=== PATIENT | female | born 1960 | race Caucasian/White ===

== ENCOUNTER 2017-03-31 20:11 | Inpatient (IN) | payer OTHER ==
[~2017-03-31] VITALS: Ht 165.1 cm; Wt 110.2 kg
[2017-03-31] MEDS: LEVOTHYROXINE 200 MCG TAB PO SCH (06:30)
[~2017-03-31 20:11] MED LIST: ALBU1AER9 INH; ASPI-390 PO; CITA40TA4 PO; CYAN100020 PO; DVN/160 PO; GLC/500 PO; HYDR-3983 PO; LEVO175T3 PO; LEVO200T6 PO; LORA-741 PO; MOME200A INH; MTR400 PO; OMEG10007 PO; TIOTCAP INH; VANCOMYCIN INJ 1,000 MG in SODIUM CHLORIDE 0.9% 250ML 250 ML IV STA; VARE1PAK15 PO
[2017-03-31 22:21] VITALS: BP 150/85; PULSE 89; TEMP 37; O2SAT 88; Ht 165.1 cm; Wt 110.2 kg
[2017-03-31] MEDS ORDERED: MoRPHine SULFATE 2 MG/ML CARP IV PRN (22:30)
[2017-03-31] MEDS ORDERED: CYCLOBENZAPRINE HCL 10 MG TAB PO PRN (22:30)
[2017-03-31] MEDS ORDERED: ONDANSETRON INJ 2 MG/ML 2 ML VIAL IV PRN (22:30)
[2017-03-31] MEDS ORDERED: LORAZEPAM 0.5 MG TAB PO PRN (22:30)
[2017-03-31] MEDS ORDERED: FUROSEMIDE 20 MG TAB PO PRN (22:30)
[2017-03-31] MEDS ORDERED: CARV3.122 PO (22:40)
[2017-03-31] MEDS ORDERED: MONT1TAB3 PO (22:40)
[2017-03-31] MEDS ORDERED: CYCL10TA6 PO (22:40)
[2017-03-31] MEDS ORDERED: FURO-85 PO (22:40)
[2017-03-31] MEDS ORDERED: LOSA1TAB38 PO (22:40)
[2017-03-31] MEDS ORDERED: MELO15TA4 PO (22:40)
[2017-03-31] MEDS ORDERED: CEFTRIAXONE SOD IV SCH (23:00)
[2017-03-31] MEDS ORDERED: SODIUM CHLORIDE 0.9% IV SCH (23:00)
[2017-03-31 23:38] VITALS: BP 137/78; PULSE 87; TEMP 37.4; O2SAT 99
[2017-03-31 23:38] LABS: BASO % 0.4 %; BASO ABS # 0.05 K/uL (0-0.2); COMPLETE YES; EOS % 0.2 %; HEMATOCRIT 35.1 % (37-47); IG% 0.2 %; LYMPH % 14.1 %; LYMPH ABS # 1.73 K/uL (1.2-3.4); MEAN CELL VOLUME 95.6 fL (80-100); MEAN CORPUSCULAR HEMOGLOBIN 30.2 pg (25-34); MEAN CORPUSCULAR HGB CONC 31.6 g/dl (32-36); MEAN PLATELET VOLUME 8.9 fL (7.4-10.4); MONO % 9.8 %; NEUT % 75.3 %; PLATELET COUNT 269 K/uL (130-400); RED BLOOD COUNT 3.67 M/uL (4.2-5.4); WHITE BLOOD COUNT 12.28 K/uL (4.8-10.8)
[2017-03-31 23:52] LABS: INR 1.1 (0.9-1.1); PROTHROMBIN TIME (PATIENT) 11.4 SECONDS (9.0-12.0)
[2017-03-31] MEDS: OXYCODONE/ACETAMINOPHEN 5-325 TAB PO PRN (23:55)
[2017-03-31 23:59] LABS: BUN/CREATININE RATIO 13.8 (10-20); CALCIUM 8.4 mg/dl (8.5-10.1); CREATININE 0.65 mg/dl (0.60-1.20); POTASSIUM 4.2 mmol/L (3.5-5.1)
[2017-03-31] MEDS: SODIUM CHLORIDE 0.9% 1000ML 1,000 ML IV SCH (23:59)
[2017-04-01] VITALS (10 sets, daily range): BP systolic 115–161; BP diastolic 74–102; PULSE 77–95; TEMP 36.6–37; O2SAT 83–95
[2017-04-01 00:07] LABS: C-REACTIVE PROTEIN 22.3 mg/dl (0-0.29)
[2017-04-01] MEDS ORDERED: VANCOMYCIN CONSULT ACTIVE PRN (00:15)
[2017-04-01 00:46] LABS: URINE APPEARANCE CLEAR (CLEAR); URINE BILIRUBIN NEG (NEG); URINE COLOR YELLOW; URINE NITRITE NEG (NEG); URINE PH 5.5 (4.5-7.5); URINE SPECIFIC GRAVITY 1.014 (1.000-1.030); UROBILINOGEN NEG (NEG)
[2017-04-01 00:49] LABS: MANUAL MICROSCOPIC REQUIRED? NO; REVIEW REQ? NO
[2017-04-01] MEDS ORDERED: DEXTROSE 50% 50 ML SYR IV PRN (01:30)
[2017-04-01] MEDS ORDERED: NURSING VERBAL MED ORDER ONE ×2 (01:30→19:15)
[2017-04-01] MEDS ORDERED: GLUCAGON FOR INJ 1 MG VIAL SQ PRN (01:30)
[2017-04-01] MEDS ORDERED: GLUCOSE 10 TABS/TUBE PO PRN (01:30)
[2017-04-01] MEDS ORDERED: GLUCOSE 40% GEL 15 GM TUBE PO PRN (01:30)
--- NOTE | 2017-04-01 01:36 | Medical Consult ---
Consultation Date of Consultation: April 01, 2017. Attending Physician: Jeevan Contreras D.O. History of Present Illness This is a 56 yo f that is s/p left TKA on March ( approx a week and a half ago) that was a direct admission from [facility] for an infection of the left knee. She states that she was doing very well post operative and was having minimal pain in the left knee. It is a 10/10 pain and is sharp/ aching in nature and does not radiate. Worsens with any movement. On thursday ( approx 3 days prior) she had increasing swelling and pain of the left knee where she had a difficullt time with ambulating. Today, she was putting her shoe on when her daughter twisted her foot and a serosanguinous drainage started to come out of the left knee. She went to [facility] for evaluation and it was decided she would be transferred to [place] for I&D of the knee. She has a history of diabetes controlled with metformin and a history of hypertension. She smokes approx 1PPD and does not drink alcohol or illicit drugs. She has a family history of stroke in the family. She has no history of PR, CHF or TIA. She is able to walk up a flight of stairs without SOB. Past Medical/Surgical History Hypothyroidism left TKA DMII HTN Family History Stroke Social History Smoking Status: Current Every Day Smoker Smokeless Tobacco Use: No Alcohol Use: none Drug Use: none Marital Status: Housing Status: lives alone Occupation Status: disabled Allergies Coded Allergies: No Known Allergies (Unverified , 04/11/16) Current Inpatient Medications Current Inpatient Medications Medications (Trade) Dose Ordered Sig/Shikha Route Start Time Stop Time Status Last Admin Dose Admin Oxycodone/ Acetaminophen (Percocet 5-325mg Tab) `1-2 TABS FOR PAIN `1 TAB... Q4H PRN PO 03/31/17 22:30 04/14/17 22:29 03/31/17 23:55 2 TAB Ondansetron HCl 4 mg 4 mg Q6H PRN IV 03/31/17 22:30 04/30/17 22:29 Sodium Chloride (Nss 1000ml) 1,000 ml @ 80 mls/hr [id number] IV 03/31/17 22:22 04/30/17 22:21 03/31/17 23:59 80 MLS/HR Carvedilol (Coreg Tab) 3.125 mg BID PO 04/01/17 09:00 05/01/17 08:59 Citalopram Hydrobromide (celeXA TAB) 40 mg QAM PO 04/01/17 09:00 05/01/17 08:59 Cyclobenzaprine HCl (Flexeril Tab) 10 mg TID PRN PO 03/31/17 22:30 04/30/17 22:29 Furosemide (Lasix Tab) 20 mg DAILY PRN PO 03/31/17 22:30 04/30/17 22:29 Levothyroxine Sodium (Synthroid Tab) 175 mcg Q2D@0630 PO 04/02/17 06:30 05/02/17 06:29 Levothyroxine Sodium (Synthroid Tab) 200 mcg Q2D@0630 PO 03/31/17 06:30 04/30/17 06:29 Lorazepam (Ativan Tab) 0.5 mg Q6H PRN PO 03/31/17 22:30 04/30/17 22:29 Losartan Potassium (coZAAR TAB) 100 mg DAILY PO 04/01/17 09:00 05/01/17 08:59 Metformin HCl (Glucophage Tab) 500 mg QDB PO 04/01/17 08:30 05/01/17 08:29 Montelukast Sodium 10 mg 10 mg HS PO 04/01/17 21:00 05/01/17 20:59 Ceftriaxone Sodium/Sodium Chloride (Rocephin Inj/ Nss 50ml) 60 ml @ 100 mls/hr DAILY@2300 IV 03/31/17 23:00 05/12/17 22:59 03/31/17 23:59 100 MLS/HR Morphine Sulfate (MoRPHine SULFATE INJ) 2 mg 4XDQ3H PRN IV 03/31/17 22:30 04/14/17 22:29 Vancomycin HCl (Consult) 1 ea UD PRN N/A 04/01/17 00:15 05/01/17 00:14 Review of Systems Constitutional: + fever (at [facility]) Eyes: No worsening of vision ENT: No hearing loss Respiratory: No cough, No dyspnea at rest, No dyspnea on exertion, No shortness of breath, No sputum, No wheezing Cardiovascular: No chest pain Abdomen: No constipation, No diarrhea, No nausea, No pain, No vomiting Musculoskeletal: + joint pain (As above), No muscle pain Genitourinary - Female: No dysuria, No hematuria Neurologic: No balance problems, No numbness/tingling, No weakness Psychiatric: + anxiety, No depression symptoms Endocrine: No fatigue Integumentary: No rash Physical Exam Date Time Temp Pulse Resp B/P Pulse Ox O2 Delivery O2 Flow Rate FiO2 03/31/17 23:38 37.4 87 16 137/78 99 Nasal Cannula 2.0 03/31/17 22:21 37.0 89 16 150/85 88 Room Air General Appearance: no apparent distress Head: normocephalic, atraumatic Eyes: normal inspection ENT: normal ENT inspection Neck: supple Respiratory/Chest: normal breath sounds, no respiratory distress, no accessory muscle use Cardiovascular: regular rate, rhythm, no murmur Abdomen/GI: normal bowel sounds, non tender, soft Back: normal inspection Extremities/Musculoskelatal: no calf tenderness, no pedal edema, + pertinent finding (pressure dressing on left knee noted, neurovascularly intact bilat LE) Neurologic/Psych: alert, normal mood/affect, oriented x 3 Skin: normal color, warm/dry, no rash Lymphatic: no adenopathy Laboratory Results Last 24 Hours Test 03/31/17 23:30 04/01/17 00:00 White Blood Count 12.28 K/uL Red Blood Count 3.67 M/uL Hemoglobin 11.1 g/dL Hematocrit 35.1 % Mean Corpuscular Volume 95.6 fL Mean Corpuscular Hemoglobin 30.2 pg Mean Corpuscular Hemoglobin Concent 31.6 g/dl Platelet Count 269 K/uL Mean Platelet Volume 8.9 fL Neutrophils (%) (Auto) 75.3 % Lymphocytes (%) (Auto) 14.1 % Monocytes (%) (Auto) 9.8 % Eosinophils (%) (Auto) 0.2 % Basophils (%) (Auto) 0.4 % Neutrophils # (Auto) 9.24 K/uL Lymphocytes # (Auto) 1.73 K/uL Monocytes # (Auto) 1.20 K/uL Eosinophils # (Auto) 0.03 K/uL Basophils # (Auto) 0.05 K/uL RDW Standard Deviation 51.8 fL RDW Coefficient of Variation 14.6 % Immature Granulocyte % (Auto) 0.2 % Immature Granulocyte # (Auto) 0.03 K/uL Erythrocyte Sedimentation Rate 43 mm/hr Prothrombin Time 11.4 SECONDS Prothromb Time International Ratio 1.1 Sodium Level 138 mmol/L Potassium Level 4.2 mmol/L Chloride Level 103 mmol/L Carbon Dioxide Level 30 mmol/L Anion Gap 5.0 mmol/L Blood Urea Nitrogen 9 mg/dl Creatinine 0.65 mg/dl Est Creatinine Clear Calc Drug Dose 119.4 ml/min Estimated GFR () 115.0 Estimated GFR (Non- 99.2 BUN/Creatinine Ratio 13.8 Random Glucose 115 mg/dl Calcium Level 8.4 mg/dl C-Reactive Protein 22.30 mg/dl Urine Color YELLOW Urine Appearance CLEAR Urine pH 5.5 Urine Specific [place] 1.014 Urine Protein TRACE Urine Glucose (UA) NEG Urine Ketones NEG Urine Occult Blood 2+ Urine Nitrite NEG Urine Bilirubin NEG Urine Urobilinogen NEG Urine Leukocyte Esterase NEG Urine WBC (Auto) 1-5 /hpf Urine RBC (Auto) 10-30 /hpf Urine Hyaline Casts (Auto) 1-5 /lpf Urine Epithelial Cells (Auto) 10-20 /lpf Urine Bacteria (Auto) NEG Assessment & Plan This is a 56 yo f with a h/o DMII, HTN and hypothyroidism that is a transfer from [place] for I&D of a recent left TKA Preop clearance - RCRI is 0.4% and is an acceptable risk for the proposed surgery Pending I&D of left knee s/p TKA - pain control per primary team - Rocephin and Vanco per primary team DMII - Metformin held - insulin ISS HTN - continue losartan and carvedilol hypothyroidism - continue 175mcg q 2 d and 200 q 2 d anxiety - continue celexa Additional Copies To Luis Jones PA-C Assessment and Plan Attending Addendum: I have physically seen and examined this patient, have directed their medical care, have supervised the medical residents activities, and agree with the H&P as noted above, with the following changes: NONE
[2017-04-01] MEDS: INSULIN ASPART 100 UNITS/ML 3 ML PEN SC SCH ×3 (06:00→20:42)
--- NOTE | 2017-04-01 06:00 | Pharmacy Progress Note ---
Pharmacy Antibiotic Consult Date of Service: April 01, 2017. Pharmacy Dosing Scope * Pharmacy is consulted to initiate Vancomycin IV dosing therapy, order appropriate labs and adjust drug dose/frequency. Subjective * The patient is a 56 year old female admitted on March 31, 2017 at 22:12. Objective Height (Feet): 5 Height (Inches): 5.00 Weight (Kilograms): 110.200 Lab Results (24hrs): Test 03/31/17 23:30 04/01/17 00:00 White Blood Count 12.28 K/uL (4.8-10.8) Red Blood Count 3.67 M/uL (4.2-5.4) Hemoglobin 11.1 g/dL (12.0-16.0) Hematocrit 35.1 % (37-47) Mean Corpuscular Volume 95.6 fL (80-100) Mean Corpuscular Hemoglobin 30.2 pg (25-34) Mean Corpuscular Hemoglobin Concent 31.6 g/dl (32-36) Platelet Count 269 K/uL (130-400) Mean Platelet Volume 8.9 fL (7.4-10.4) Neutrophils (%) (Auto) 75.3 % Lymphocytes (%) (Auto) 14.1 % Monocytes (%) (Auto) 9.8 % Eosinophils (%) (Auto) 0.2 % Basophils (%) (Auto) 0.4 % Neutrophils # (Auto) 9.24 K/uL (1.4-6.5) Lymphocytes # (Auto) 1.73 K/uL (1.2-3.4) Monocytes # (Auto) 1.20 K/uL (0.11-0.59) Eosinophils # (Auto) 0.03 K/uL (0-0.5) Basophils # (Auto) 0.05 K/uL (0-0.2) RDW Standard Deviation 51.8 fL (36.4-46.3) RDW Coefficient of Variation 14.6 % (11.5-14.5) Immature Granulocyte % (Auto) 0.2 % Immature Granulocyte # (Auto) 0.03 K/uL (0.00-0.02) Erythrocyte Sedimentation Rate 43 mm/hr (0-21) Prothrombin Time 11.4 SECONDS (9.0-12.0) Prothromb Time International Ratio 1.1 (0.9-1.1) Sodium Level 138 mmol/L (136-145) Potassium Level 4.2 mmol/L (3.5-5.1) Chloride Level 103 mmol/L (98-107) Carbon Dioxide Level 30 mmol/L (21-32) Anion Gap 5.0 mmol/L (3-11) Blood Urea Nitrogen 9 mg/dl (7-18) Creatinine 0.65 mg/dl (0.60-1.20) Est Creatinine Clear Calc Drug Dose 119.4 ml/min Estimated GFR () 115.0 Estimated GFR (Non- 99.2 BUN/Creatinine Ratio 13.8 (10-20) Random Glucose 115 mg/dl (70-99) Calcium Level 8.4 mg/dl (8.5-10.1) C-Reactive Protein 22.30 mg/dl (0-0.29) Urine Color YELLOW Urine Appearance CLEAR (CLEAR) Urine pH 5.5 (4.5-7.5) Urine Specific [place] 1.014 (1.000-1.030) Urine Protein TRACE (NEG) Urine Glucose (UA) NEG (NEG) Urine Ketones NEG (NEG) Urine Occult Blood 2+ (NEG) Urine Nitrite NEG (NEG) Urine Bilirubin NEG (NEG) Urine Urobilinogen NEG (NEG) Urine Leukocyte Esterase NEG (NEG) Urine WBC (Auto) 1-5 /hpf (0-5) Urine RBC (Auto) 10-30 /hpf (0-4) Urine Hyaline Casts (Auto) 1-5 /lpf (0-5) Urine Epithelial Cells (Auto) 10-20 /lpf (0-5) Urine Bacteria (Auto) NEG (NEG) Recent Pertinent Medications * Patient is also receiving Ceftriaxone 1gm IV every 24 hours Assessment & Plan * Patient was transferred from [place] ED for bone/joint infection. Per RN patient arrived to floor with a vancomycin bag labeled 1750mg that was started about 1999 on 03/31/17 in the [place] ED. The RN also noticed that bag was clamped and approx 100ml of vanco was left??? * A dose of 1750mg is ~15.8mg/kg. I ordered another 1gm IV dose given ~0118 for a total loading dose of ~25mg/kg. I have no idea where else to go from here so a random level was ordered for this am at 0800 just to verify the patient is clearing the drug. * Subsequent dosing to follow. Pharmacy will continue to follow and will adjust dose/frequency as necessary. Thank you
[2017-04-01] MEDS: OXYCODONE/ACETAMINOPHEN 5-325 TAB PO PRN ×2 (06:29→11:22)
[2017-04-01] MEDS ORDERED: INSULIN ASPART 100 UNITS/ML 3 ML PEN SC SCH (08:00)
[2017-04-01] MEDS ORDERED: METFORMIN HCL 500 MG TAB PO SCH (08:30)
[2017-04-01] MEDS ORDERED: VANCOMYCIN INJ 1,000 MG in SODIUM CHLORIDE 0.9% 250ML 250 ML IV SCH (09:00)
[2017-04-01] MEDS: LOSARTAN POTASSIUM 50 MG TAB PO SCH (09:01)
[2017-04-01] MEDS: CARVEDILOL 3.125 MG TAB PO SCH ×2 (09:02→20:39)
[2017-04-01] MEDS: CITALOPRAM 40 MG TAB PO SCH (09:03)
--- NOTE | 2017-04-01 09:47 | Pharmacy Progress Note ---
Pharmacy Abx Dose Progress Nt Date of Service April 01, 2017. Pharmacy Dosing Scope The patient is currently receiving the following antimicrobial agents per Pharmacy consult: Vancomycin IV Objective Height (Feet): 5 Height (Inches): 5.00 Weight (Kilograms): 110.200 Vital Signs (Past 12Hrs) Vital Signs Past 12 Hours Date Time Temp Pulse Resp B/P Pulse Ox O2 Delivery O2 Flow Rate FiO2 04/01/17 07:20 Nasal Cannula 2.0 04/01/17 07:12 36.7 86 18 115/74 95 Nasal Cannula 2.0 04/01/17 01:30 36.7 04/01/17 00:00 Nasal Cannula 2.0 03/31/17 23:38 37.4 87 16 137/78 99 Nasal Cannula 2.0 03/31/17 22:21 37.0 89 16 150/85 88 Room Air Lab Results (24Hrs) Test 03/31/17 23:30 04/01/17 00:00 04/01/17 07:50 White Blood Count 12.28 K/uL (4.8-10.8) Red Blood Count 3.67 M/uL (4.2-5.4) Hemoglobin 11.1 g/dL (12.0-16.0) Hematocrit 35.1 % (37-47) Mean Corpuscular Volume 95.6 fL (80-100) Mean Corpuscular Hemoglobin 30.2 pg (25-34) Mean Corpuscular Hemoglobin Concent 31.6 g/dl (32-36) Platelet Count 269 K/uL (130-400) Mean Platelet Volume 8.9 fL (7.4-10.4) Neutrophils (%) (Auto) 75.3 % Lymphocytes (%) (Auto) 14.1 % Monocytes (%) (Auto) 9.8 % Eosinophils (%) (Auto) 0.2 % Basophils (%) (Auto) 0.4 % Neutrophils # (Auto) 9.24 K/uL (1.4-6.5) Lymphocytes # (Auto) 1.73 K/uL (1.2-3.4) Monocytes # (Auto) 1.20 K/uL (0.11-0.59) Eosinophils # (Auto) 0.03 K/uL (0-0.5) Basophils # (Auto) 0.05 K/uL (0-0.2) RDW Standard Deviation 51.8 fL (36.4-46.3) RDW Coefficient of Variation 14.6 % (11.5-14.5) Immature Granulocyte % (Auto) 0.2 % Immature Granulocyte # (Auto) 0.03 K/uL (0.00-0.02) Erythrocyte Sedimentation Rate 43 mm/hr (0-21) Prothrombin Time 11.4 SECONDS (9.0-12.0) Prothromb Time International Ratio 1.1 (0.9-1.1) Sodium Level 138 mmol/L (136-145) Potassium Level 4.2 mmol/L (3.5-5.1) Chloride Level 103 mmol/L (98-107) Carbon Dioxide Level 30 mmol/L (21-32) Anion Gap 5.0 mmol/L (3-11) Blood Urea Nitrogen 9 mg/dl (7-18) Creatinine 0.65 mg/dl (0.60-1.20) Est Creatinine Clear Calc Drug Dose 119.4 ml/min Estimated GFR () 115.0 Estimated GFR (Non- 99.2 BUN/Creatinine Ratio 13.8 (10-20) Random Glucose 115 mg/dl (70-99) Calcium Level 8.4 mg/dl (8.5-10.1) C-Reactive Protein 22.30 mg/dl (0-0.29) Urine Color YELLOW Urine Appearance CLEAR (CLEAR) Urine pH 5.5 (4.5-7.5) Urine Specific [place] 1.014 (1.000-1.030) Urine Protein TRACE (NEG) Urine Glucose (UA) NEG (NEG) Urine Ketones NEG (NEG) Urine Occult Blood 2+ (NEG) Urine Nitrite NEG (NEG) Urine Bilirubin NEG (NEG) Urine Urobilinogen NEG (NEG) Urine Leukocyte Esterase NEG (NEG) Urine WBC (Auto) 1-5 /hpf (0-5) Urine RBC (Auto) 10-30 /hpf (0-4) Urine Hyaline Casts (Auto) 1-5 /lpf (0-5) Urine Epithelial Cells (Auto) 10-20 /lpf (0-5) Urine Bacteria (Auto) NEG (NEG) Random Vancomycin Level 11.8 mcg/ml Risk Factors for Resistance * Hospitalization for 48 hours or more within the past 90 days (knee surgery ) * Antimicrobial use within the last 90 days ? (likely preop/postop abx 03/16/17) Assessment & Plan Assessment * 56 year old female receiving Vancomycin for treatment of L knee infection s/p L TKA 1.5 weeks ago. * Patient was directly admitted last night from [facility]. * Vancomycin and Rocephin IV ordered on admission. Nurse noted when patient got to the floor that a "Vancomycin 1750 mg" IV was hanging ([facility] label) and ~ 100 cc's clamped and left in bag. * Nurse reported info to pharmacist and at that point it was decided to give 1000 mg IV X 1 (to complete a full loading dose) and check random with AM labs since it is unknown as to timing of ABX and how much drug was infused. * Day # 2 of antimicrobial therapy Plan Vancomycin IV * A random level of 11.8 mcg/mL is subtherapeutic. * I assume that the patient was not sufficiently loaded since Vancomycin was clamped from [place] and we only gave 1000 mg IV since we had no idea what to expect with random draw. * Initiate dose of 1500 mg IV every 10 hours with first dose being STAT * Goal trough level for bone/joint infection: 15 to 20 mcg/mL * Trough level ordered for: 04/02/17 @ 1530 prior to the 1600 dose. * Less than traditional dose and/or extended dosing interval selected due to likelihood of drug accumulation in obese patient/CKD. Rocephin 1 g IV every 24 hours * Given patients BMI >35, increase dose to 2 g IV every 24 hours Cultures * None pending at this time. Patient to go for I/D today. Pharmacy will continue to follow and will adjust dose/frequency as necessary. Thank you.
[2017-04-01] MEDS: VANCOMYCIN INJ 1,500 MG in SODIUM CHLORIDE 0.9% 500ML 500 ML IV SCH ×2 (10:01→20:36)
[2017-04-01] MEDS: SODIUM CHLORIDE 0.9% 1000ML 1,000 ML IV SCH ×2 (11:24→23:15)
--- NOTE | 2017-04-01 14:11 | HISTORY & PHYSICAL EXAMINATION ---
DATE OF ADMISSION: 03/31/2017 HISTORY OF PRESENT ILLNESS: The patient is a 56-year-old white female known to our practice who is status post left knee arthroscopy by Dr. Contreras approximately 9 days ago. She states that she was doing well the first week; however on Thursday she began having some pain in her knee and into Thursday and Thursday to the point where she could not bend the knee and could not walk on it. At one point when her daughter was helping her get out of bed the knee twisted a certain way and a lot of purulent material came squirting out the 1 portal. She was seen at [facility] and then at that point felt that her knee was infected and was brought over here to [facility] where she was admitted under Dr. Contreras's service for further care. The patient denies any overt chills or rigors. No nausea or vomiting. She states that she was having some increased heat intolerances and sweating a lot after receiving medication at [place] but no overt fevers or chills at home prior to this. PAST MEDICAL HISTORY: Hypertension, diabetes mellitus type 2, hypothyroidism, history of left knee arthroscopy x2 in the past, 1 just recently with above noted history and once in 2016. FAMILY HISTORY: CVA. SOCIAL HISTORY: The patient is a smoker who does not use alcohol and is . MEDICATIONS: Carvedilol 1 tab p.o. b.i.d. 3.125 mg tablet, citalopram 40 mg p.o. q.a.m., Flexeril 10 mg p.o. t.i.d. p.r.n., furosemide 20 mg p.o. daily p.r.n., [place] 7.5/325 two tabs p.o. q. 6 hours p.r.n. pain, levothyroxine 175 mcg every 2 days and 200 mcg alternating with the 175 mcg dose, lorazepam 0.5 mg p.o. q. 6 hours p.r.n., losartan potassium 100 mg p.o. daily, meloxicam 15 mg p.o. daily, metformin 500 mg p.o. q.a.m., Dulera 200/5 two puffs inhaled b.i.d., Singulair 1 tab p.o. at bedtime. ALLERGIES: NKDA. REVIEW OF SYSTEMS: Again, no recent overt fevers prior to this admission. No increased cough or sputum production. No flu or cold-like symptoms. No nausea or vomiting. No hemoptysis. No chest pain, chest pressure, irregular heartbeat. No abdominal pain. No unusual diarrhea. No hematemesis, melena, hematochezia. No hematuria, pyuria, dysuria. No vertigo, lightheadedness, dizzy sensations. PHYSICAL EXAMINATION: VITAL SIGNS: Recently this morning temperature 36.7, pulse 86, respirations 18, BP 115/74, pulse ox 95 on 2 liters per nasal cannula. GENERAL: The patient is an obese white female who is alert and oriented x3 and in no acute distress, pleasant and cooperative. SKIN: Warm and dry. Turgor is good. HEAD, EYES, EARS, NOSE, AND THROAT: Head is normocephalic, atraumatic. There is no scleral icterus or injection. Nasal airway is patent. Oral mucosa is pink and dry. NECK: Supple. HEART: Regular rate and rhythm. LUNGS: Clear to auscultation. ABDOMEN: Soft, obese and nontender. Bowel sounds are present and active x4. GENITALIA AND RECTAL: Not performed at this time. EXTREMITIES: On examination of the patient's left lower extremity it is wrapped in gauze and has noted drainage on it. The gauze and wrap are removed and it reveals 3 arthroscopy portals. The most superior portal is benign. No erythema and no drainage. The 2 portals on the medial and lateral aspects of the knee joint have some erythema near them and the lateral portal is draining some orangeish serous drainage on a regular basis. She is moderately tender on palpation of the knee at this time and any attempts to do gentle range of motion with the knee causes her exquisite pain in the knee itself. She has some mild erythema noted around the portals as noted. She is nontender in both calves and has good dorsiflexion, plantar flexion of both ankles with good strength equal bilaterally. Her right lower extremity is benign at this time as far as range of motion and is within normal limits. Upper extremities have good strength bilaterally and range of motion of the upper extremities is within normal limits without discomfort. Distal pulses are equal bilaterally of the upper and lower extremities. NEUROLOGICAL: There is no gross motor or sensory deficits seen at this time. The patient is oriented x3. ASSESSMENT: Left infected knee status post left knee arthroscopy approximately 9 days ago. PLAN: The patient has been started on IV vancomycin. Medical consultation has been obtained and plans will be for irrigation and debridement of the left knee today. Consult will be placed to infectious disease and to have them on board. LENNY
--- NOTE | 2017-04-01 14:16 | Progress Note ---
Progress Note Date of Service April 01, 2017. Progress Note ID Consult Dictated #[id number] A/P: 1. Infected L TKA -For OR today, please obtain cultures -Blood cultures x 2 -Continue emperic abx -Await OR findings, culture results -Will follow, thank you
--- NOTE | 2017-04-01 15:54 | DIAGNOSTIC IMAGING REPORT ---
CHEST ONE VIEW PORTABLE CLINICAL HISTORY: Preoperative evaluation. COMPARISON STUDY: No previous studies for comparison. FINDINGS: Lung volumes are normal. There is no consolidation to suggest pneumonia. Pulmonary vascularity is normal. Cardiac size is at the upper limits of normal. IMPRESSION: No acute cardiopulmonary findings. Electronically signed by: Ramsey Turcios M.D. 04/01/2017 3:52 PM Dictated Date/Time: 04/01/2017 3:51 PM
[2017-04-01] MEDS ORDERED: BACITRACIN 50000 UNIT VIAL ONE ×2 (15:55→16:03)
[2017-04-01] MEDS ORDERED: BUPIVACAINE/EPINEPHRINE 0.5% MPF 1:200,000 30 ML VIAL ONE (15:55)
[2017-04-01] MEDS ORDERED: FENTANYL CITRATE INJ 50 MCG/1 ML 2 ML VIAL ONE ×2 (16:03→16:50)
[2017-04-01] MEDS ORDERED: MIDAZOLAM HCL 1 MG/ML 2ML VIAL ONE (16:03)
--- NOTE | 2017-04-01 16:09 | History & Physical Bridge Note ---
H&P Re-Evaluation Bridge Note: I have examined the patient, reviewed the History & Physical and in the interval since the performance of the History & Physical I have noted the following changes of clinical significance: No changes noted
--- NOTE | 2017-04-01 16:11 | INFECT. DISEASE CONSULTATION ---
DATE OF CONSULTATION: 04/01/2017 DATE OF CONSULTATION: 04/01/2017. HISTORY OF PRESENT ILLNESS: This is a 56-year-old female who was transferred from [facility] after she had worsening pain and swelling and serosanguinous drainage from the left knee incision. She did undergo a left total knee replacement on 03/16/2017 at an outpatient surgery center. She states she was doing well until Thursday after she noticed a sudden onset of swelling and pain with ambulation. She states this worsened throughout the day and by Thursday night she was not able to bear weight on her left leg. She denies any trauma, twisting or falling prior to this. She states Thursday and Thursday she had worsening pain and erythema and then developed spontaneous serosanguinous drainage. She presented to [facility] and was subsequently transferred here for additional orthopedic management. She states she is to go to the OR later today for incision and drainage. She was started on Rocephin and vancomycin empirically. She appears to be tolerating these well. She denies being on any antibiotics prior to this. She is afebrile, but does admit to having a low-grade temperature upon her arrival to [facility]. She otherwise denies any fevers or chills. She continues to have some pain. She did have a leukocytosis of 12.2 and her sed rate is elevated at 43. Her CRP is 22. She did have a urinalysis that was negative. There is no micro to review. All remaining review of systems are reviewed and are unremarkable. PAST MEDICAL HISTORY: Hypothyroidism, type 2 diabetes, and hypertension. PAST SURGICAL HISTORY: Significant for left total knee replacement on 03/16/2017. FAMILY HISTORY: Noncontributory. SOCIAL HISTORY: Significant for daily tobacco use. She denies any alcohol or drug use. She lives alone and is . ALLERGIES: She has no known drug allergies. CURRENT MEDICATIONS: Include Synthroid, Singulair, Rocephin, vancomycin, Coreg, Celexa, Cozaar, insulin, Percocet, Zofran, Flexeril, Lasix, Ativan, morphine. PHYSICAL EXAMINATION: VITAL SIGNS: She is afebrile, pulse 86, respiratory rate 18, blood pressure is 115/74, oxygen saturation is 95% on 2 liters nasal cannula. GENERAL: She is awake, alert and oriented x3. She is in no acute distress. HEAD, EYES, EARS, NOSE, AND THROAT: Mucous membranes are moist. Extraocular muscles are intact. HEART: Regular. LUNGS: Clear bilaterally. ABDOMEN: Soft, nontender, nondistended. EXTREMITIES: There is no lower extremity edema bilaterally. Examination of the left knee reveals the dressing to be clean, dry and intact. There is minimal warmth and tenderness to palpation. There is no purulent drainage expressed on exam. LABORATORY STUDIES: CBC reveals a white blood cell count 12.2, hemoglobin 11.1, platelets are 269, sed rate is 43. Chemistry panel reveals a sodium of 138, potassium 4.2, chloride 103, bicarbonate 30, BUN 9, creatinine 0.65, glucose is 105. CRP is 22.3. Urinalysis is negative for random vancomycin done today 11.8. There is no micro to review. There is no imaging to review. ASSESSMENT AND PLAN: Infected left total knee replacement for OR later today. Please obtain deep cultures. Blood cultures will be obtained as well. She will be maintained on empiric antibiotics pending additional microdata. Thank you for this consultation.
[2017-04-01] MEDS ORDERED: PROMETHAZINE HCL INJ 12.5 MG in SODIUM CHLORIDE 0.9% 50ML 50 ML IV PRN (16:45)
[2017-04-01] MEDS ORDERED: ONDANSETRON INJ 2 MG/ML 2 ML VIAL IV PRN (16:45)
[2017-04-01] MEDS ORDERED: NALOXONE HCL 0.4 MG/1 ML VIAL/CARP IV PRN (16:45)
[2017-04-01] MEDS ORDERED: FLUMAZENIL 0.1 MG/1 ML 10 ML VIAL IV PRN (16:45)
[2017-04-01] MEDS ORDERED: ATROPINE SULFATE 0.1 MG/ML 5ML SYR IV PRN (16:45)
[2017-04-01] MEDS ORDERED: LABETALOL HCL IV 5 MG/ML 20ML IV PRN (16:45)
[2017-04-01] MEDS ORDERED: EpHEDrine SULFATE INJ 50 MG/ML AMP IV PRN (16:45)
[2017-04-01] MEDS ORDERED: ONDANSETRON INJ 2 MG/ML 2 ML VIAL ONE (16:55)
[2017-04-01] MEDS ORDERED: PROPOFOL IV EMULSION 10 MG/ML 20 ML VIAL IV ONE (16:55)
[2017-04-01] MEDS ORDERED: DEXAMETHASONE SOD INJ 4 MG/ML VIAL ONE (16:55)
[2017-04-01] MEDS ORDERED: LIDOCAINE HCL 2% 2 ML VIAL (20MG/ML) ONE (16:55)
[2017-04-01] MEDS: HYDROmorphone INJ 1 MG/ML SYR IV PRN ×3 (17:55→18:15)
--- NOTE | 2017-04-01 18:05 | [facility] Operative Report ---
Operative Report Operative Date April 01, 2017. Pre-Operative Diagnosis Left infected knee status post left knee arthroscopy Post-Operative Diagnosis SAme Procedure(s) Performed arthroscoopic irrigation and debridement extensive with synovectomy and placement of drains Surgeon Dr. Lyles Estimated Blood Loss 15ml Findings infected knee advanced djd oa absent anterior horn lateral meniscus likely postsurgical Specimens For Culture: 1. Left knee joint fluid - Gram Stain, C+S, Aerobic/Anaerobic - Routine Drains 2 hemovac Anesthesia general Complication(s) None Disposition Recovery Room / PACU Indications acute postop infection I attest to the content of the Intraoperative Record and any orders documented therein. Any exceptions are noted below.
--- NOTE | 2017-04-01 18:20 | Anesthesiology Progress Note ---
Anesthesia Post Op Note Date & Time April 01, 2017 at 18:20 Vital Signs Pain Intensity: 4 Vital Signs Past 12 Hours Date Time Temp Pulse Resp B/P Pulse Ox O2 Delivery O2 Flow Rate FiO2 04/01/17 18:15 97 16 149/78 93 Nasal Cannula 3 04/01/17 18:05 97 16 132/57 94 Mask 10 04/01/17 17:55 95 16 144/90 95 Mask 10 04/01/17 17:47 37.7 94 16 163/74 97 Mask 10 04/01/17 16:00 83 Room Air 04/01/17 15:05 37.0 79 18 125/80 91 Room Air 04/01/17 07:20 Nasal Cannula 2.0 04/01/17 07:12 36.7 86 18 115/74 95 Nasal Cannula 2.0 Notes Mental Status: alert / awake / arousable, participated in evaluation Pt Amnestic to Procedure: Yes Nausea / Vomiting: adequately controlled Pain: adequately controlled Airway Patency, RR, SpO2: stable & adequate BP & HR: stable & adequate Hydration State: stable & adequate Anesthetic Complications: no major complications apparent
[2017-04-01] MEDS: SODIUM CHLORIDE 0.9% IV SCH (19:10)
[2017-04-01] MEDS: CEFTRIAXONE SOD IV SCH (19:10)
[2017-04-01] MEDS: MONTELUKAST SOD 10 MG TAB PO SCH (20:39)
[2017-04-01] MEDS: ACETAMINOPHEN 500 MG TAB PO SCH (21:29)
--- NOTE | 2017-04-02 02:10 | OPERATIVE REPORT ---
DATE OF OPERATION: 04/01/2017 INDICATION FOR PROCEDURE: The patient is a 56-year-old female who had a recent arthroscopy about [address] Contreras at an outpatient surgical facility. She had increased pain, swelling and presented into the [facility] last evening. They did aspirate her knee for some cloudy fluid and some bloody fluid consistent with probable infected hemarthrosis. She also had some draining of some cloudy fluid from the inferior lateral portal her knee. It was also concerning for infection. They did aspirate her knee, white cell count was 23,000 and cultures were sent. Gram stain is Gram-positive cocci at this time. Cultures are pending. The patient has been treated preoperatively with IV vancomycin and Rocephin. PREOPERATIVE DIAGNOSIS: Acute septic knee joint, status post knee arthroscopy. POSTOPERATIVE DIAGNOSES: Same including degenerative joint disease, absent anterior horn of the lateral meniscus, likely postsurgical tricompartmental degenerative joint disease and synovitis consistent with infected synovitis of the left knee joint. PROCEDURE: Left knee arthroscopy with irrigation and extensive debridement including synovectomy and placement of drains for acute septic knee joint. SURGEON: Dr. Lyles. ANESTHESIA: General. STAGE SET UP WORKER: None. OPERATIVE PROCEDURE: The patient was taken to the operating room, anesthetized under general anesthetic. Pneumatic tourniquet was placed about her left upper thigh. Her left lower extremity was first treated by removing the sutures. This did open up the inferior lateral portal and some sherrie pus cloudy fluid drained out of her knee. We did express a good bit of fluid out of her knee prior to doing a formal prep. We formally prepped her with Betadine and then sterilely draped the left lower extremity. First I placed an arthroscopic cannula into the inferolateral portal and drained out some fluid which we cultured. Then, we put a superior medial cannula and inferior lateral cannula and just ran some fluid through her knee to irrigate out the knee joint. Then, the arthroscope was placed in the inferior lateral portal and the superior medial and inferior medial portals. We used a shaver blade, 4.5 cm type resector blade. Intra-articular findings demonstrated diffuse synovitis throughout the knee joint consistent with a septic synovitis. The patient had a significant osteoarthritic change in her knee. She had grade 4 chondromalacia lateral facet of patella. She had a grade 4 disease on the lateral femoral condyle. She had grade 4 changes on the tibial plateau and femur and the lateral compartment. She had better articular cartilage in the medial compartment, medial meniscus was intact. Lateral meniscus at the anterior horn resected likely from surgery. The cruciate ligaments were intact. At this time, the thorough synovectomy was performed using a 4.5 resector blade moving all the pathological synovium in the suprapatellar pouch, both lateral gutters around the anterior knee around the cruciates. We did a thorough debridement of the entire knee joint. Then we irrigated the knee between 12 and 15 liters of fluid, 9 of which had antibiotics with bacitracin within them. Then I placed 2 drains, one to the superior medial portal and the other through the inferomedial portal and connected them to a Hemovac. We did suture those in place with nylon sutures, closed the medial portal that was draining. Also of note, we did arthroscopically debride the subcutaneous tissue and the infrapatellar fat pad and then around the area of the lateral portal which appeared to be most affected portal site and did a thorough debridement all they way out to the skin of that portal. We did close that with nylon suture and the procedure. I placed Xeroform dressings around all the incisional sites, drain sponges, gauze and sterile Webril and the tourniquet was let down and then placed a double Hugo wrap from the foot to thigh. The patient tolerated the procedure well. I attest to the content of the Intraoperative Record and any orders documented therein. Any exception s are noted below.
[2017-04-02 04:00] VITALS: BP 114/74; PULSE 75; TEMP 36.5; O2SAT 94
[2017-04-02] MEDS: VANCOMYCIN INJ 1,500 MG in SODIUM CHLORIDE 0.9% 500ML 500 ML IV SCH ×3 (05:24→23:36)
[2017-04-02] MEDS: LEVOTHYROXINE 175 MCG TAB PO SCH (05:29)
[2017-04-02] MEDS: ACETAMINOPHEN 500 MG TAB PO SCH ×3 (05:30→21:13)
[2017-04-02] MEDS: LEVOTHYROXINE 200 MCG TAB PO SCH (05:31)
[2017-04-02 06:18] LABS: HEMATOCRIT 33.2 % (37-47); MEAN CELL VOLUME 96.2 fL (80-100); MEAN CORPUSCULAR HEMOGLOBIN 30.1 pg (25-34); MEAN CORPUSCULAR HGB CONC 31.3 g/dl (32-36); MEAN PLATELET VOLUME 9.4 fL (7.4-10.4); PLATELET COUNT 301 K/uL (130-400); RED BLOOD COUNT 3.45 M/uL (4.2-5.4); WHITE BLOOD COUNT 11.57 K/uL (4.8-10.8)
[2017-04-02 07:03] LABS: CREATININE 0.58 mg/dl (0.60-1.20)
[2017-04-02 07:04] LABS: BUN/CREATININE RATIO 21.1 (10-20); CALCIUM 8.5 mg/dl (8.5-10.1)
[2017-04-02 07:58] VITALS: BP 122/78; PULSE 70; TEMP 36.8; O2SAT 95
[2017-04-02] MEDS: CARVEDILOL 3.125 MG TAB PO SCH ×2 (08:44→21:11)
[2017-04-02] MEDS: OXYCODONE/ACETAMINOPHEN 5-325 TAB PO PRN (08:44)
[2017-04-02] MEDS: CITALOPRAM 40 MG TAB PO SCH (08:45)
[2017-04-02] MEDS: LOSARTAN POTASSIUM 50 MG TAB PO SCH (08:45)
[2017-04-02] MEDS: INSULIN ASPART 100 UNITS/ML 3 ML PEN SC SCH ×4 (08:47→21:00)
[2017-04-02] MEDS: MULTIVITAMIN TAB PO SCH (08:56)
--- NOTE | 2017-04-02 09:36 | Progress Note ---
Subjective Date of Service: Apr 02, 2017. Subjective Pt evaluation today including: conversation w/ patient, physical exam, lab review, review of inpatient medication list Pain: knee pain is better after surgery PO Intake: adequate Voiding: no voiding problems patient feeling well overall, no chest pain or shortness of breath ate all her breakfast this AM tolerated surgery well yesterday, knee washed out and cultures sent ID following for antibiotic orders medical issues appear to be stable Review of Systems Musculoskeletal: + joint pain (knee pain, better since surgery) All Other Systems: Reviewed and Negative Medications Current Inpatient Medications Medications (Trade) Dose Ordered Sig/Shikha Route Start Time Stop Time Status Last Admin Dose Admin Oxycodone/ Acetaminophen (Percocet 5-325mg Tab) `1-2 TABS FOR PAIN `1 TAB... Q4H PRN PO 03/31/17 22:30 04/14/17 22:29 04/02/17 08:44 2 TAB Ondansetron HCl (Zofran Inj) 4 mg Q6H PRN IV 03/31/17 22:30 04/30/17 22:29 Sodium Chloride 1,000 ml @ 80 mls/hr [id number] IV 03/31/17 22:22 04/30/17 22:21 04/01/17 23:15 80 MLS/HR Carvedilol (Coreg Tab) 3.125 mg BID PO 04/01/17 09:00 05/01/17 08:59 04/02/17 08:44 3.125 MG Citalopram Hydrobromide (celeXA TAB) 40 mg QAM PO 04/01/17 09:00 05/01/17 08:59 04/02/17 08:45 40 MG Cyclobenzaprine HCl (Flexeril Tab) 10 mg TID PRN PO 03/31/17 22:30 04/30/17 22:29 Furosemide (Lasix Tab) 20 mg DAILY PRN PO 03/31/17 22:30 04/30/17 22:29 Levothyroxine Sodium (Synthroid Tab) 175 mcg Q2D@0630 PO 04/02/17 06:30 05/02/17 06:29 04/02/17 05:29 175 MCG Levothyroxine Sodium (Synthroid Tab) 200 mcg Q2D@0630 PO 03/31/17 06:30 04/30/17 06:29 Lorazepam (Ativan Tab) 0.5 mg Q6H PRN PO 03/31/17 22:30 04/30/17 22:29 Losartan Potassium (coZAAR TAB) 100 mg DAILY PO 04/01/17 09:00 05/01/17 08:59 04/02/17 08:45 100 MG Montelukast Sodium (Singulair Tab) 10 mg HS PO 04/01/17 21:00 05/01/17 20:59 04/01/17 20:39 10 MG Morphine Sulfate (MoRPHine SULFATE INJ) 2 mg 4XDQ3H PRN IV 03/31/17 22:30 04/14/17 22:29 Vancomycin HCl (Consult) 1 ea UD PRN N/A 04/01/17 00:15 05/01/17 00:14 Glucose (Glucose 40% Gel) 15-30 GRAMS 15 GRAMS... UD PRN PO 04/01/17 01:30 05/01/17 01:29 Glucose (Glucose Chew Tab) 4-8 Tablets 4 Tabl... UD PRN PO 04/01/17 01:30 05/01/17 01:29 Dextrose (Dextrose 50% 50ML Syringe) 25-50ML OF 50% DW IV FOR... UD PRN IV 04/01/17 01:30 05/01/17 01:29 Glucagon (Glucagon Inj) 1 mg UD PRN SQ 04/01/17 01:30 05/01/17 01:29 Vancomycin HCl 1500 mg/Sodium Chloride 530 ml @ 200 mls/hr Q10H IV 04/01/17 10:00 05/13/17 09:59 04/02/17 05:24 200 MLS/HR Ceftriaxone Sodium 2000 mg/ Sodium Chloride 70 ml @ 100 mls/hr Q24H IV 04/01/17 18:00 05/13/17 17:59 04/01/17 19:10 100 MLS/HR Ondansetron HCl (Zofran Inj) 4 mg ONE PRN IV 04/01/17 16:45 Promethazine HCl 12.5 mg/Sodium Chloride 50.5 ml @ 202 mls/hr ONE PRN IV 04/01/17 16:45 Acetaminophen (Tylenol Tab) 1,000 mg Q8 PO 04/01/17 22:00 05/01/17 21:59 04/02/17 05:30 1,000 MG Multivitamins (Multivitamin Tab) 1 tab QAM PO 04/02/17 09:00 05/02/17 08:59 04/02/17 08:56 1 TAB Insulin Aspart (novoLOG ASPART) SLIDING SCALE G... ACHS SC 04/01/17 21:00 05/01/17 20:59 04/01/17 20:42 1 UNITS Objective Vital Signs Date Time Temp Pulse Resp B/P (MAP) Pulse Ox O2 Delivery O2 Flow Rate FiO2 04/02/17 07:58 36.8 70 16 122/78 (93) 95 Nasal Cannula 2.0 04/02/17 07:40 Nasal Cannula 2.0 04/02/17 04:00 36.5 75 16 114/74 (87) 94 Nasal Cannula 2.0 04/01/17 22:55 36.6 86 18 125/80 (95) 95 Nasal Cannula 3.0 04/01/17 21:50 36.8 77 20 150/98 (115) 94 Nasal Cannula 3.0 04/01/17 20:50 36.8 90 22 147/88 (107) 90 Nasal Cannula 3.0 04/01/17 19:53 36.9 95 20 158/88 (111) 93 Nasal Cannula 3.0 04/01/17 19:28 36.6 93 22 161/102 (121) 94 Nasal Cannula 3.0 04/01/17 18:55 94 Nasal Cannula 3.0 04/01/17 18:55 Room Air 04/01/17 18:55 36.6 93 18 150/95 (113) 94 Nasal Cannula 3.0 04/01/17 18:35 36.6 92 19 140/90 93 Nasal Cannula 3 04/01/17 18:25 95 19 128/101 93 Nasal Cannula 3 04/01/17 18:15 97 16 149/78 93 Nasal Cannula 3 04/01/17 18:05 97 16 132/57 94 Mask 10 04/01/17 17:55 95 16 144/90 95 Mask 10 04/01/17 17:47 37.7 94 16 163/74 97 Mask 10 04/01/17 16:00 83 Room Air 04/01/17 15:05 37.0 79 18 125/80 (95) 91 Room Air Physical Exam General Appearance: no apparent distress, + obese Eyes: normal inspection, EOMI, sclerae normal ENT: normal ENT inspection, hearing grossly normal, pharynx normal Neck: supple, no adenopathy, no JVD, trachea midline Respiratory/Chest: chest non-tender, lungs clear, normal breath sounds, no respiratory distress, no accessory muscle use Cardiovascular: regular rate, rhythm, no edema, no gallop, no JVD, no murmur Abdomen: normal bowel sounds, non tender, soft, no organomegaly Extremities: no pedal edema, no calf tenderness, normal capillary refill, pelvis stable, + pertinent finding (left knee wrapped, decreased ROM due to pain , drain in place) Neurologic/Psychiatric: stretcher operator II-XII nml as tested, no motor/sensory deficits, alert, normal mood/affect, oriented x 3 Skin: normal color, warm/dry, no rash Lymphatic: no adenopathy Laboratory Results Last 24 Hours Test 04/01/17 12:05 04/01/17 15:56 04/01/17 17:51 04/01/17 20:36 Bedside Glucose 119 mg/dl 107 mg/dl 112 mg/dl 192 mg/dl Test 04/02/17 05:41 04/02/17 08:22 White Blood Count 11.57 K/uL Red Blood Count 3.45 M/uL Hemoglobin 10.4 g/dL Hematocrit 33.2 % Mean Corpuscular Volume 96.2 fL Mean Corpuscular Hemoglobin 30.1 pg Mean Corpuscular Hemoglobin Concent 31.3 g/dl RDW Standard Deviation 50.6 fL RDW Coefficient of Variation 14.3 % Platelet Count 301 K/uL Mean Platelet Volume 9.4 fL Sodium Level 142 mmol/L Potassium Level 4.0 mmol/L Chloride Level 107 mmol/L Carbon Dioxide Level 31 mmol/L Anion Gap 4.0 mmol/L Blood Urea Nitrogen 12 mg/dl Creatinine 0.58 mg/dl Est Creatinine Clear Calc Drug Dose 133.8 ml/min Estimated GFR () 119.4 Estimated GFR (Non- 103.0 BUN/Creatinine Ratio 21.1 Random Glucose 136 mg/dl Calcium Level 8.5 mg/dl Bedside Glucose 131 mg/dl Assessment and Plan This is a 56 yo f with a h/o DMII (pre-diabetes according to patient), HTN and hypothyroidism that was transfered from [place] for I&D after a recent left knee arthroscopy, one week prior, she started to experience increased pain and then drainage from the knee. Left knee septic arthritis following arthroscopy - s/p arthroscopic washout on 04/01, drains placed, cultures taken - Rocephin and Patricko, continue per ID, they will make final antibiotic recommendations - pain control per primary team DM type II, although she says it is actually pre-diabetes - Metformin held, can resume on discharge - Novolog SS while inpatient, diabetic diet HTN - continue losartan and carvedilol - BP stable hypothyroidism - continue 175mcg q 2 d and 200 q 2 d anxiety - continue celexa Patient is stable from medical standpoint, will sign off at this time, infectious disease will make final antibiotic recommendations
--- NOTE | 2017-04-02 09:48 | Anesthesiology Progress Note ---
Anesthesia Post Op Note Date & Time Apr 02, 2017 at 09:48 Vital Signs Pain Intensity: 6.0 Vital Signs Past 12 Hours Date Time Temp Pulse Resp B/P (MAP) Pulse Ox O2 Delivery O2 Flow Rate FiO2 04/02/17 07:58 36.8 70 16 122/78 (93) 95 Nasal Cannula 2.0 04/02/17 07:40 Nasal Cannula 2.0 04/02/17 04:00 36.5 75 16 114/74 (87) 94 Nasal Cannula 2.0 04/01/17 22:55 36.6 86 18 125/80 (95) 95 Nasal Cannula 3.0 04/01/17 21:50 36.8 77 20 150/98 (115) 94 Nasal Cannula 3.0 Notes Mental Status: alert / awake / arousable, participated in evaluation Pt Amnestic to Procedure: Yes Nausea / Vomiting: adequately controlled Pain: adequately controlled Airway Patency, RR, SpO2: stable & adequate BP & HR: stable & adequate Hydration State: stable & adequate Anesthetic Complications: no major complications apparent
[2017-04-02 11:38] VITALS: BP 143/78; PULSE 82; O2SAT 97
[2017-04-02 12:08] VITALS: BP 126/78; PULSE 81; TEMP 36.8; O2SAT 90
[2017-04-02] MEDS: SODIUM CHLORIDE 0.9% 1000ML 1,000 ML IV SCH ×2 (12:33→23:39)
--- NOTE | 2017-04-02 14:49 | Progress Note ---
Subjective Date of Service: Apr 02, 2017. Subjective Pt evaluation today including: conversation w/ patient, physical exam, chart review, lab review pt seen in follow up, s/p OR, cultures growing staph aureus, final pending. blood cultures pending. afebrile. tolerating vanco. pain controlled, was ambulating with walker earlier today, drain in place. remaining ros reviewed and are negative. Objective Vital Signs Date Time Temp Pulse Resp B/P (MAP) Pulse Ox O2 Delivery O2 Flow Rate FiO2 04/02/17 12:08 36.8 81 16 126/78 (94) 90 Room Air 04/02/17 11:38 82 97 04/02/17 11:05 Room Air 04/02/17 07:58 36.8 70 16 122/78 (93) 95 Nasal Cannula 2.0 04/02/17 07:40 Nasal Cannula 2.0 04/02/17 04:00 36.5 75 16 114/74 (87) 94 Nasal Cannula 2.0 04/01/17 22:55 36.6 86 18 125/80 (95) 95 Nasal Cannula 3.0 04/01/17 21:50 36.8 77 20 150/98 (115) 94 Nasal Cannula 3.0 04/01/17 20:50 36.8 90 22 147/88 (107) 90 Nasal Cannula 3.0 04/01/17 19:53 36.9 95 20 158/88 (111) 93 Nasal Cannula 3.0 04/01/17 19:28 36.6 93 22 161/102 (121) 94 Nasal Cannula 3.0 04/01/17 18:55 94 Nasal Cannula 3.0 04/01/17 18:55 Room Air 04/01/17 18:55 36.6 93 18 150/95 (113) 94 Nasal Cannula 3.0 04/01/17 18:35 36.6 92 19 140/90 93 Nasal Cannula 3 04/01/17 18:25 95 19 128/101 93 Nasal Cannula 3 04/01/17 18:15 97 16 149/78 93 Nasal Cannula 3 04/01/17 18:05 97 16 132/57 94 Mask 10 04/01/17 17:55 95 16 144/90 95 Mask 10 04/01/17 17:47 37.7 94 16 163/74 97 Mask 10 04/01/17 16:00 83 Room Air 04/01/17 15:05 37.0 79 18 125/80 (95) 91 Room Air Physical Exam General Appearance: WD/WN, no apparent distress Eyes: normal inspection Neck: supple Respiratory/Chest: lungs clear, normal breath sounds, no respiratory distress Cardiovascular: regular rate, rhythm, no edema Abdomen: non tender, soft Extremities: non-tender, normal inspection, no pedal edema Neurologic/Psychiatric: alert, oriented x 3 Skin: normal color Comments: dressing intact, drain in place, bloody fluid Laboratory Results Item Value Date Time Gram Stain - Final Resulted 04/01/17 1645 Joint Fluid/Space (Synovial) Knee Left Gram Stain - Final Resulted 04/01/17 1645 Joint Fluid/Space (Synovial) Knee Left Last 24 Hours Test 04/01/17 15:56 04/01/17 17:51 04/01/17 20:36 04/02/17 05:41 Bedside Glucose 107 mg/dl 112 mg/dl 192 mg/dl White Blood Count 11.57 K/uL Red Blood Count 3.45 M/uL Hemoglobin 10.4 g/dL Hematocrit 33.2 % Mean Corpuscular Volume 96.2 fL Mean Corpuscular Hemoglobin 30.1 pg Mean Corpuscular Hemoglobin Concent 31.3 g/dl RDW Standard Deviation 50.6 fL RDW Coefficient of Variation 14.3 % Platelet Count 301 K/uL Mean Platelet Volume 9.4 fL Sodium Level 142 mmol/L Potassium Level 4.0 mmol/L Chloride Level 107 mmol/L Carbon Dioxide Level 31 mmol/L Anion Gap 4.0 mmol/L Blood Urea Nitrogen 12 mg/dl Creatinine 0.58 mg/dl Est Creatinine Clear Calc Drug Dose 133.8 ml/min Estimated GFR () 119.4 Estimated GFR (Non- 103.0 BUN/Creatinine Ratio 21.1 Random Glucose 136 mg/dl Calcium Level 8.5 mg/dl Test 04/02/17 08:22 04/02/17 12:16 Bedside Glucose 131 mg/dl 117 mg/dl Assessment and Plan (1) Infection of prosthesis Assessment & Plan: continue vanco for now, follow final cultures. will need min 6 weeks IV abx. final abx depend on final culture. will follow.
[2017-04-02 14:57] VITALS: BP 117/67; PULSE 71; TEMP 36.9; O2SAT 95
[2017-04-02] MEDS ORDERED: VANCOMYCIN TROUGH SCH (15:30)
--- NOTE | 2017-04-02 15:52 | Progress Note ---
Orthopedic SOAP Note Subjective Date of Service: Apr 02, 2017. Additional Notes: feeling better ,pain much improved Objective N/V intact, dressing C/D/I Date Time Temp Pulse Resp B/P (MAP) Pulse Ox O2 Delivery O2 Flow Rate FiO2 04/02/17 15:20 Room Air 04/02/17 14:57 36.9 71 18 117/67 (84) 95 Room Air 04/02/17 12:08 36.8 81 16 126/78 (94) 90 Room Air 04/02/17 11:38 82 97 04/02/17 11:05 Room Air 04/02/17 07:58 36.8 70 16 122/78 (93) 95 Nasal Cannula 2.0 04/02/17 07:40 Nasal Cannula 2.0 04/02/17 04:00 36.5 75 16 114/74 (87) 94 Nasal Cannula 2.0 04/01/17 22:55 36.6 86 18 125/80 (95) 95 Nasal Cannula 3.0 04/01/17 21:50 36.8 77 20 150/98 (115) 94 Nasal Cannula 3.0 04/01/17 20:50 36.8 90 22 147/88 (107) 90 Nasal Cannula 3.0 04/01/17 19:53 36.9 95 20 158/88 (111) 93 Nasal Cannula 3.0 04/01/17 19:28 36.6 93 22 161/102 (121) 94 Nasal Cannula 3.0 04/01/17 18:55 94 Nasal Cannula 3.0 04/01/17 18:55 Room Air 04/01/17 18:55 36.6 93 18 150/95 (113) 94 Nasal Cannula 3.0 04/01/17 18:35 36.6 92 19 140/90 93 Nasal Cannula 3 04/01/17 18:25 95 19 128/101 93 Nasal Cannula 3 04/01/17 18:15 97 16 149/78 93 Nasal Cannula 3 04/01/17 18:05 97 16 132/57 94 Mask 10 04/01/17 17:55 95 16 144/90 95 Mask 10 04/01/17 17:47 37.7 94 16 163/74 97 Mask 10 04/01/17 16:00 83 Room Air Laboratory Results 24 Hours: Test 04/02/17 05:41 Hematocrit 33.2 % Hemoglobin 10.4 g/dL Assessment left knee joint infection,s/p recent arthroscopy,djd oa left knee , staph aureus sensitivities pending Plan IV antibiotics. PICC ordered ,await final sensitivities,check cultures from [facility] 03/31
[2017-04-02] MEDS: OXYCODONE HCL IR 5 MG TAB (IMMEDIATE RELEASE) PO PRN (16:07)
[2017-04-02] MEDS: CEFTRIAXONE SOD IV SCH (19:48)
[2017-04-02] MEDS: SODIUM CHLORIDE 0.9% IV SCH (19:48)
[2017-04-02] MEDS: MONTELUKAST SOD 10 MG TAB PO SCH (21:11)
[2017-04-02 23:15] VITALS: BP 129/86; PULSE 73; TEMP 36.6; O2SAT 97
[2017-04-03] MEDS: ACETAMINOPHEN 500 MG TAB PO SCH ×3 (05:48→21:41)
[2017-04-03 05:57] LABS: HEMATOCRIT 30.3 % (37-47); MEAN CELL VOLUME 95.9 fL (80-100); MEAN CORPUSCULAR HEMOGLOBIN 29.7 pg (25-34); MEAN PLATELET VOLUME 9.3 fL (7.4-10.4); PLATELET COUNT 322 K/uL (130-400); RED BLOOD COUNT 3.16 M/uL (4.2-5.4); WHITE BLOOD COUNT 10.23 K/uL (4.8-10.8)
[2017-04-03 06:33] LABS: BUN/CREATININE RATIO 31.2 (10-20); CALCIUM 8.1 mg/dl (8.5-10.1); CREATININE 0.59 mg/dl (0.60-1.20); POTASSIUM 3.8 mmol/L (3.5-5.1)
[2017-04-03 07:10] VITALS: BP 153/99; PULSE 60; TEMP 36.8; O2SAT 99
[2017-04-03] MEDS: VANCOMYCIN INJ 1,500 MG in SODIUM CHLORIDE 0.9% 500ML 500 ML IV SCH (07:57)
[2017-04-03] MEDS: INSULIN ASPART 100 UNITS/ML 3 ML PEN SC SCH ×4 (08:00→21:39)
--- NOTE | 2017-04-03 08:16 | Discharge Instructions ---
Discharge Instructions Date of Service Apr 03, 2017. Admission Reason for Admission: Infected Left Knee, S/P Surgery Discharge Discharge Diagnosis / Problem: Infected Left Knee s/p Left knee Arthoroscopy Discharge Goals Goal(s): Decrease discomfort, Improve function Activity Recommendations Activity Limitations: per Instructions/Follow-up section Weightbearing Status: Left weightbearing (as tolerated) . Instructions / Follow-Up Instructions / Follow-Up You will be receiving IV antibiotics for several weeks. You may need labwork done during this time which will be done by Home Health Services. Results will be sent to Dr Lyles from Orthopedics and to Dr Harrison with Infectious Disease Dept. Any changes in the antibiotic will be taken care of by Dr Harrison. ACTIVITY RECOMMENDATIONS: * You may walk on the leg with or without crutches as comfort permits. * Gentle bending of the knee should start at once. * Do not shower for 48 hours following surgery. SPECIAL CARE INSTRUCTIONS: * You may cleanse the skin adjacent to the small wounds with soap and water at the time of the first dressing change. * The application of an ice bag to the front and sides of the knee will decrease swelling and discomfort for the first 48 hours. * The small incisions may be sore and develop bruising. This bruising does not require any special care. SPECIAL PRECAUTIONS: * If you experience unusual pain unrelieved by prescriptions, temperature elevation (100 degrees F. or above) or progressive swelling or bleeding, you should contact our office at for further evaluation. * You may have been prescribed pain medication. If you experience nausea and/or fine skin rash, discontinue this medication and contact our office at for an alternate medication. DRESSING: * Dressing should be comfortable and absorb any leakage of fluid and/or blood. * The dressing may become moist or bloodstained. * Dressing may be changed daily after surgery and bandaids placed over the small surgical incisions. If can be removed sooner if it becomes very soiled or loose. * Bandaids may be used over next several days as needed and can be discontinued when there is not further drainage from the wounds. FOLLOW UP VISIT: If appointment is not already scheduled: Please call [facility] to make a follow-up appointment for 10 -14 days from the day of your surgery at . Follow up with Dr Harrison in 7-10 days. Call for appt. [phone] Current Hospital Diet Patient's current hospital diet: Diabetes Type 2 Diet Discharge Diet Recommended Diet: Diabetes Type 2 Diet Procedures Procedures Performed: Left Knee Arthroscopic Incision and Drainage, Synovectomy, extensive debridement, placement of drains Pending Studies Studies pending at discharge: no Medical Emergencies . Who to Call and When: Medical Emergencies: If at any time you feel your situation is an emergency, please call 911 immediately. . Non-Emergent Contact Non-Emergency issues call your: Surgeon Call Non-Emergent contact if: temperature is above 101.5, your pain is not controlled, your pain is worsening, wound has increased drainage, wound has increased redness . "Provider Documentation" section prepared by Charan Farrell. . VTE Core Measure Inpt VTE Proph given/why not?: Other Anticoagulation, T.E.D. Stockings, SCD's [place] Drug Monitoring Program Search Results: patient reviewed within database, no issues identified
--- NOTE | 2017-04-03 08:17 | Orthopedic Progress Note ---
Orthopedic Progress Note Date of Service Apr 03, 2017. Subjective Post OP Day: 2 Reports: feeling well, pain controlled w PO medications, Denies: complaints, chest pain, SOB, nausea / vomiting, light headedness, calf pain Objective calves soft nontender, N/V intact, dressing C/D/I, A&O x3, toes mobile Date Time Temp Pulse Resp B/P (MAP) Pulse Ox O2 Delivery O2 Flow Rate FiO2 04/03/17 07:10 36.8 60 18 153/99 (117) 99 Nasal Cannula 2.0 04/02/17 23:15 36.6 73 16 129/86 (100) 97 Nasal Cannula 2.0 04/02/17 19:45 Room Air 04/02/17 15:20 Room Air 04/02/17 14:57 36.9 71 18 117/67 (84) 95 Room Air 04/02/17 12:08 36.8 81 16 126/78 (94) 90 Room Air 04/02/17 11:38 82 97 04/02/17 11:05 Room Air Laboratory Results 24 Hours: Test 04/03/17 05:25 Hematocrit 30.3 % Hemoglobin 9.4 g/dL Assessment & Plan Assessment: POD #2, Left knee I&D , staph aureus sensitivities pending Plan: IV antibiotics- vanco for now, then as per ID PICC ordered , Cultures showing Narayanan Sensitive Staph Aureus D/C drain Wednesday 04/04.
[2017-04-03] MEDS: CITALOPRAM 40 MG TAB PO SCH (08:34)
[2017-04-03] MEDS: CARVEDILOL 3.125 MG TAB PO SCH ×2 (08:34→21:40)
[2017-04-03] MEDS: MULTIVITAMIN TAB PO SCH (08:34)
[2017-04-03] MEDS: LOSARTAN POTASSIUM 50 MG TAB PO SCH (08:35)
--- NOTE | 2017-04-03 12:24 | Progress Note ---
Subjective Date of Service: Apr 03, 2017. Subjective pt getting picc line at time of visit. tolerating abx. cultures reviewed, growing mssa. for d/c in am per social service. afebrile overnight. no overnight events, pain controlled Objective Vital Signs Date Time Temp Pulse Resp B/P (MAP) Pulse Ox O2 Delivery O2 Flow Rate FiO2 04/03/17 08:00 Room Air 04/03/17 07:10 36.8 60 18 153/99 (117) 99 Nasal Cannula 2.0 04/02/17 23:15 36.6 73 16 129/86 (100) 97 Nasal Cannula 2.0 04/02/17 19:45 Room Air 04/02/17 15:20 Room Air 04/02/17 14:57 36.9 71 18 117/67 (84) 95 Room Air Laboratory Results Item Value Date Time Gram Stain - Final Resulted 04/01/17 1645 Joint Fluid/Space (Synovial) Knee Left Blood Culture - Preliminary Resulted 04/01/17 1450 Blood NO GROWTH TO DATE. Blood Culture - Preliminary Resulted 04/01/17 1445 Blood NO GROWTH TO DATE. Last 24 Hours Test 04/02/17 15:25 04/02/17 17:04 04/02/17 20:41 04/03/17 05:25 Vancomycin Level Trough 12.3 mcg/ml Bedside Glucose 122 mg/dl 146 mg/dl White Blood Count 10.23 K/uL Red Blood Count 3.16 M/uL Hemoglobin 9.4 g/dL Hematocrit 30.3 % Mean Corpuscular Volume 95.9 fL Mean Corpuscular Hemoglobin 29.7 pg Mean Corpuscular Hemoglobin Concent 31.0 g/dl RDW Standard Deviation 51.2 fL RDW Coefficient of Variation 14.4 % Platelet Count 322 K/uL Mean Platelet Volume 9.3 fL Sodium Level 145 mmol/L Potassium Level 3.8 mmol/L Chloride Level 110 mmol/L Carbon Dioxide Level 31 mmol/L Anion Gap 4.0 mmol/L Blood Urea Nitrogen 18 mg/dl Creatinine 0.59 mg/dl Est Creatinine Clear Calc Drug Dose 131.6 ml/min Estimated GFR () 118.8 Estimated GFR (Non- 102.5 BUN/Creatinine Ratio 31.2 Random Glucose 115 mg/dl Calcium Level 8.1 mg/dl Test 04/03/17 08:03 Bedside Glucose 106 mg/dl Assessment and Plan (1) Infection of prosthesis Assessment & Plan: will change to ctx 2g daily x 6 weeks. stop date 05/13, will need weekly cbc, chem 12, esr while on therapy. can follow with ID post d/c. no contraindication to d/c from ID standpoint.
[2017-04-03] MEDS: OXYCODONE HCL IR 5 MG TAB (IMMEDIATE RELEASE) PO PRN ×2 (12:27→21:37)
[2017-04-03] MEDS: SODIUM CHLORIDE 0.9% 1000ML 1,000 ML IV SCH (13:57)
[2017-04-03 15:36] VITALS: BP 146/82; PULSE 69; TEMP 36.5; O2SAT 94
[2017-04-03] MEDS ORDERED: CEFT1INJ57 IV (16:09)
[2017-04-03] MEDS: CEFTRIAXONE SOD IV SCH (17:50)
[2017-04-03] MEDS: SODIUM CHLORIDE 0.9% IV SCH (17:50)
[2017-04-03] MEDS ORDERED: NURSING VERBAL MED ORDER ONE ×2 (21:30)
[2017-04-03] MEDS: MONTELUKAST SOD 10 MG TAB PO SCH (21:37)
[2017-04-03 21:38] VITALS: BP 148/106; PULSE 76
[2017-04-03 22:50] VITALS: BP 158/95; PULSE 70; TEMP 36.8; O2SAT 96
[2017-04-03] MEDS ORDERED: VANCOMYCIN TROUGH SCH (23:30)
[2017-04-04] MEDS: SODIUM CHLORIDE 0.9% 1000ML 1,000 ML IV SCH ×2 (01:16→13:38)
[2017-04-04 06:00] LABS: MEAN CORPUSCULAR HEMOGLOBIN 31.1 pg (25-34); MEAN CORPUSCULAR HGB CONC 32.4 g/dl (32-36); MEAN PLATELET VOLUME 9.2 fL (7.4-10.4); PLATELET COUNT 336 K/uL (130-400); RED BLOOD COUNT 3.02 M/uL (4.2-5.4); WHITE BLOOD COUNT 8.57 K/uL (4.8-10.8)
[2017-04-04] MEDS: ACETAMINOPHEN 500 MG TAB PO SCH ×2 (06:03→13:37)
[2017-04-04] MEDS: LEVOTHYROXINE 175 MCG TAB PO SCH (06:03)
[2017-04-04] MEDS: LEVOTHYROXINE 200 MCG TAB PO SCH (06:03)
[2017-04-04 06:38] LABS: CREATININE 0.5 mg/dl (0.60-1.20)
[2017-04-04] MEDS: OXYCODONE HCL IR 5 MG TAB (IMMEDIATE RELEASE) PO PRN ×2 (07:35→13:37)
[2017-04-04 07:51] VITALS: BP 169/64; PULSE 72; TEMP 36.8; O2SAT 93
[2017-04-04] MEDS: INSULIN ASPART 100 UNITS/ML 3 ML PEN SC SCH ×2 (08:00→12:00)
[2017-04-04] MEDS: CITALOPRAM 40 MG TAB PO SCH (09:01)
[2017-04-04] MEDS: CARVEDILOL 3.125 MG TAB PO SCH (09:01)
[2017-04-04] MEDS: MULTIVITAMIN TAB PO SCH (09:01)
[2017-04-04] MEDS: LOSARTAN POTASSIUM 50 MG TAB PO SCH (09:02)
[2017-04-04 10:44] VITALS: O2SAT 95
[2017-04-04 11:44] VITALS: BP 153/91; PULSE 67; TEMP 36.6; O2SAT 94
--- NOTE | 2017-04-04 11:59 | Orthopedic Progress Note ---
Orthopedic Progress Note Date of Service Apr 04, 2017. Subjective Reports: feeling well, Denies: complaints, chest pain, SOB, nausea / vomiting, light headedness, calf pain Additional Notes: Knee pain improved L LE. No fever or chills. Objective calves soft nontender, N/V intact, capillary refill less than 2 sec., A&O x3, toes mobile, hemovac drainage (10cc, No active drainage. ) Dressing changed and drains removed. No erythema or streaking. Minimal effusion and swelling. AROM/PROM improving. Date Time Temp Pulse Resp B/P (MAP) Pulse Ox O2 Delivery O2 Flow Rate FiO2 04/04/17 11:44 36.6 67 15 153/91 (111) 94 Room Air 04/04/17 10:44 95 04/04/17 08:15 Room Air 04/04/17 07:51 36.8 72 14 169/64 (99) 93 Room Air 04/03/17 22:50 36.8 70 15 158/95 (116) 96 Nasal Cannula 2.0 04/03/17 21:38 76 148/106 (120) 04/03/17 21:30 Room Air 04/03/17 15:36 36.5 69 18 146/82 (103) 94 Room Air Laboratory Results 24 Hours: Test 04/04/17 05:18 Hematocrit 29.0 % Hemoglobin 9.4 g/dL Assessment & Plan Assessment: POD #3, Arthroscopic Left knee I&D-improving , staph aureus sensitivities resulted Plan: IV antibiotics- IV Rocephin for 6 weeks PICC placed Home infusion scheduled Cultures showing Narayanan Sensitive Staph Aureus D/C home today WBAT w/ walker F/U in clinic next
[2017-04-04] MEDS ORDERED: ACET-1138 PO (12:07)
[2017-04-04] MEDS ORDERED: RXC5 PO (12:07)
[2017-04-04] MEDS: CEFTRIAXONE SOD IV SCH (13:05)
[2017-04-04] MEDS: SODIUM CHLORIDE 0.9% IV SCH (13:05)
[2017-04-04 13:11] VITALS: BP 153/91; PULSE 67; TEMP 36.6; O2SAT 94
--- NOTE | 2017-04-12 13:15 | DISCHARGE SUMMARY ---
HISTORY OF PRESENT ILLNESS: A 56-year-old female, known to our practice, who was status post left knee arthroscopy approximately 9 days prior to admission. She was doing well the first week; however, she began to have some increased pain in her knee to the point where she could not bend the knee or walk on it or bear weight. She was seen at [facility] and they felt that her knee was infected and she was transferred to [facility] where she was admitted under Dr. Contreras's service for further care. The patient was set up for an I&D of the knee. PAST MEDICAL HISTORY: Hypertension, diabetes mellitus type 2, hypothyroidism, history of left knee arthroscopy x2, one just recently above with a noted history and once in 2015. POSTOPERATIVE COURSE: The patient underwent an arthroscopic irrigation and debridement extensively with synovectomy and placement of drains of the left knee on 04/01/2017. Postoperatively, she was followed closely with infectious disease, medical consultation, pain control and the use of antibiotics. Cultures showed pansensitive Staph aureus in the postoperative course. She was placed on Rocephin 2 g daily for 6 weeks by infectious disease. She did have a successful PICC line placed and she was discharged on postoperative day #2. PHYSICAL EXAMINATION: On discharge, knee incisions were clean and dry and intact. There was no erythema or drainage. She had normal postoperative swelling and no calf tenderness. Negative Homans sign. Neurologically and neurovascularly intact in the left lower extremity. DIAGNOSES: Status post left knee I&D with pansensitive Staph aureus resulted in cultures. She also has a history of hypertension, diabetes mellitus type 2, hypothyroidism, history of knee arthroscopy x2 in the past, most recently noted towards the end of March of this year. PLAN: The patient was discharged home on IV Rocephin. She will take 2 g daily for 6 weeks, pain medications as needed and follow up with Dr. Contreras in the office as scheduled. LENNY
== END 2017-04-04 14:30 | disposition home health service (06) | DRG 857 ==
LOC: C.MSW 22:12
PROVIDERS: ADMIT Orthopaedic Surgery Sports Medicine; ATTEND Orthopaedic Surgery Sports Medicine
PROC: 0SBD4ZZ Excision of Left Knee Joint, Percutaneous Endoscopic Approach (ICD-10-PCS; principal; 2017-04-01 15:15)
PROC: 02HV33Z Insertion of Infusion Device into Superior Vena Cava, Percutaneous Approach (ICD-10-PCS; 2017-04-03)
DX: T81.4XXA Infection following a procedure, initial encounter (principal); Z68.41 Body mass index [BMI] 40.0-44.9, adult; B95.61 Methicillin susceptible Staphylococcus aureus infection as the cause of diseases classified elsewhere; E03.9 Hypothyroidism, unspecified; E11.9 Type 2 diabetes mellitus without complications; E66.9 Obesity, unspecified; F41.9 Anxiety disorder, unspecified; I10 Essential (primary) hypertension; F17.200 Nicotine dependence, unspecified, uncomplicated; Z79.84 Long term (current) use of oral hypoglycemic drugs; Z79.899 Other long term (current) drug therapy; Z98.890 Other specified postprocedural states; Y83.8 Other surgical procedures as the cause of abnormal reaction of the patient, or of later complication, without mention of misadventure at the time of the procedure; Z82.3 Family history of stroke

== ENCOUNTER 2018-06-14 13:38 | Inpatient (IN) | payer OTHER ==
[~2018-06-14] VITALS: Ht 165.1 cm; Wt 116.8 kg
[~2018-06-14 13:38] MED LIST changes: +ACET-1138 PO; -ALBU1AER9 INH; -ASPI-390 PO; +CARV3.122 PO; -CYAN100020 PO; +CYCL10TA6 PO; -DVN/160 PO; +FURO-85 PO; -HYDR-3983 PO; +LOSA1TAB38 PO; +MONT1TAB3 PO; -MTR400 PO; -OMEG10007 PO; +RXC5 PO; -TIOTCAP INH; -VANCOMYCIN INJ 1,000 MG in SODIUM CHLORIDE 0.9% 250ML 250 ML IV STA; -VARE1PAK15 PO
[2018-06-14] MEDS ORDERED: MELO7.5T5 PO (15:04)
[2018-06-14] MEDS ORDERED: CARV6.252 PO (15:04)
--- NOTE | 2018-06-14 15:53 | DIAGNOSTIC IMAGING REPORT ---
R KNEE 3 VIEWS CLINICAL HISTORY: 57 years-old Female presenting with R knee pain. TECHNIQUE: Frontal, lateral, and sunrise views of the right knee were obtained. COMPARISON: None. FINDINGS: Knee joint congruent. Osteophytosis notable in the medial and patellofemoral compartments. Allowing for suboptimal positioning, suspected large lipohemarthrosis. Irregularity of the metaphysis of the tibia concerning for tibial plateau fracture. This appears to primarily involve the medial tibial plateau. No significant patellar subluxation. Positioning of the patella likely related to the presence of a large effusion. Anterior soft tissue swelling at the knee. Minimally displaced fracture of the fibular head also noted. IMPRESSION: 1. Findings highly suspicious for intra-articular fracture involving the medial aspect of the tibial plateau. Additional minimally displaced fracture of the fibular head. Noncontrast MR of the knee recommended to better characterize the extent of injury or alternatively CT. Electronically signed by: Chin Michaud M.D. 06/14/2018 3:52 PM Dictated Date/Time: 06/14/2018 3:48 PM
[2018-06-14] MEDS ORDERED: ONDANSETRON INJ 2 MG/ML 2 ML VIAL IV STA (16:04)
[2018-06-14] MEDS ORDERED: MoRPHine SULFATE 4 MG/ML 1 ML CARP\\VIAL IV STA ×2 (16:04→18:37)
[2018-06-14] MEDS ORDERED: SODIUM CHLORIDE 0.9% 1000ML 1,000 ML IV ONE (16:15)
--- NOTE | 2018-06-14 17:45 | DIAGNOSTIC IMAGING REPORT ---
CHEST ONE VIEW PORTABLE HISTORY: knee pain: ? pre op COMPARISON: Chest 04/01/2017. FINDINGS: The lungs are clear. Cardiac silhouette is borderline enlarged. No pleural effusions. No pneumothorax. IMPRESSION: No significant change compared to the prior study. No acute process. Electronically signed by: Florin Schafer M.D. 06/14/2018 5:43 PM Dictated Date/Time: 06/14/2018 5:39 PM
--- NOTE | 2018-06-14 17:53 | DIAGNOSTIC IMAGING REPORT ---
RIGHT KNEE CT CT DOSE: 225.19 mGy.cm HISTORY: fall; R knee pain TECHNIQUE: Multiaxial CT images of the right knee were performed and reformatted in the sagittal and coronal plane without the use of contrast. A dose lowering technique was utilized adhering to the principles of ALARA. COMPARISON: Right knee 06/14/2018. FINDINGS: Slightly impacted proximal tibial fracture which extends into the tibial spines and to the anterior lip of the lateral tibial plateau. The fracture also extends to the medial proximal tibia but does not clearly extend to the articular surface. Nondisplaced fibular head fracture. The fracture at the proximal tibia demonstrates up to 3 mm of depression at the anterior lip of the lateral tibial plateau. The distal femur and patella are intact. There is a moderate lipohemarthrosis. One of the fracture fragments 7 measures up to 3 mm of anterior displacement. IMPRESSION: 1. Proximal tibial and fibular head fractures as described above. 2. Moderate lipohemarthrosis. Electronically signed by: Florin Schafer M.D. 06/14/2018 5:52 PM Dictated Date/Time: 06/14/2018 5:43 PM
[2018-06-14 18:17] LABS: BASO % 0.4 %; BASO ABS # 0.05 K/uL (0-0.2); EOS % 1.2 %; EOS ABS # 0.15 K/uL (0-0.5); HEMATOCRIT 41.5 % (37-47); IG# 0.07 K/uL (0.00-0.02); LYMPH % 21.4 %; LYMPH ABS # 2.68 K/uL (1.2-3.4); MEAN CELL VOLUME 95.2 fL (80-100); MEAN CORPUSCULAR HEMOGLOBIN 29.8 pg (25-34); MEAN CORPUSCULAR HGB CONC 31.3 g/dl (32-36); MEAN PLATELET VOLUME 9.8 fL (7.4-10.4); MONO % 5.3 %; MONO ABS # 0.67 K/uL (0.11-0.59); NEUT % 71.1 %; NEUT ABS # 8.93 K/uL (1.4-6.5); PLATELET COUNT 298 K/uL (130-400); RED CELL DISTRIBUTION WIDTH CV 15.6 % (11.5-14.5); RED CELL DISTRIBUTION WIDTH SD 54.9 fL (36.4-46.3); WHITE BLOOD COUNT 12.55 K/uL (4.8-10.8)
[2018-06-14] MEDS ORDERED: POLYETHYLENE (MIRALAX) 17 GM PACK PO PRN (18:30)
[2018-06-14] MEDS ORDERED: ONDANSETRON INJ 2 MG/ML 2 ML VIAL IV PRN (18:30)
[2018-06-14] MEDS ORDERED: TRAMADOL HCL 50 MG TAB PO PRN (18:30)
[2018-06-14] MEDS ORDERED: ALBU18002 PO (18:34)
[2018-06-14] MEDS ORDERED: OMEG10007 PO (18:34)
[2018-06-14] MEDS ORDERED: CRS/10 PO (18:34)
[2018-06-14] MEDS ORDERED: MELO15TA10 PO (18:34)
[2018-06-14] MEDS ORDERED: UMEC1INH PO (18:34)
[2018-06-14] MEDS ORDERED: AMB10 PO (18:34)
[2018-06-14] MEDS ORDERED: CARV12.52 PO (18:34)
[2018-06-14 18:37] LABS: BLOOD UREA NITROGEN 17 mg/dl (7-18); CALCIUM 9.4 mg/dl (8.5-10.1); CARBON DIOXIDE 29 mmol/L (21-32); CREATININE 0.89 mg/dl (0.60-1.20); GLUCOSE 77 mg/dl (70-99); POTASSIUM 3.7 mmol/L (3.5-5.1); SODIUM 139 mmol/L (136-145)
[2018-06-14] MEDS ORDERED: LORAZEPAM 0.5 MG TAB PO PRN (18:45)
[2018-06-14] MEDS ORDERED: ALBUTEROL 0.083% NEBU SOLN 3 ML VIAL INH PRN (18:45)
[2018-06-14] MEDS ORDERED: GLUCOSE 40% GEL 15 GM TUBE PO PRN (19:00)
[2018-06-14] MEDS ORDERED: CARBOHYDRATES FOR HYPOGLYCEMIA PO PRN (19:00)
[2018-06-14] MEDS ORDERED: GLUCAGON FOR INJ 1 MG VIAL SQ PRN (19:00)
[2018-06-14] MEDS ORDERED: DEXTROSE 50% 50 ML SYR IV PRN (19:00)
[2018-06-14] MEDS ORDERED: GLUCOSE 10 TABS/TUBE PO PRN (19:00)
[2018-06-14 19:03] LABS: PTT PATIENT 25.2 SECONDS (21.0-31.0)
--- NOTE | 2018-06-14 19:03 | History and Physical ---
History & Physical Date & Time of Service: Jun 14, 2018 at 18:37 Chief Complaint: Fall,Rt Knee Pain Primary Care Physician: Luis Jones PA-C History of Present Illness Source: patient, clinic records, hospital records Pt is 57 y/o F with PMH HTN, HLD, hypothyroidism, CRISTÓBAL, COPD, obesity hypoventilation syndrome, DM II presented to ER with complaint of right knee pain. Patient states was out feeding her dogs this morning around 10 AM and dog jumped up on her and she slipped in mud landing on right knee. Patient states has been unable to bear weight on right leg since has limited ability to move knee secondary to pain. C/0 edema to right knee. History of arthritis bilateral knees-history injections by Dr. Contreras in the past, denies history of prior injury to right knee. Patient denies hitting head. Patient denies any other injury. Denies hip pain or ankle/foot pain, extremity paresthesias.Denies fever/chills, diaphoresis, N/V/D/C, FERNANDEZ, dizziness, syncope, vision changes, neck pain, CP, SOB, orthopnea, palpitations, cough, rhinorrhea, abdominal pain, other extremity edema, rashes, urinary symptoms, weight loss. Past Medical/Surgical History Medical Problems: (1) COPD (chronic obstructive pulmonary disease) Status: Chronic (2) DM type 2 (diabetes mellitus, type 2) Status: Chronic (3) HTN (hypertension) Status: Chronic (4) Hyperlipidemia Status: Chronic (5) Hypothyroidism Status: Chronic (6) Infection of prosthesis Status: Resolved (7) Obesity hypoventilation syndrome Status: Chronic (8) CRISTÓBAL (obstructive sleep apnea) Permanent Comment: BiPAP at bedtime Status: Chronic (9) Septic joint of left knee joint Status: Resolved Surgical Problems: (1) H/O arthroscopy of left knee Status: Resolved (2) History of carpal tunnel surgery Status: Resolved (3) History of tonsillectomy and adenoidectomy Status: Resolved (4) History of tubal ligation Status: Resolved Family History CHF (congestive heart failure) Depression Diabetes mellitus Stroke Social History Smoking Status: Current Every Day Smoker (Half pack per day, was smoking 1.5 pack per day 36 years) Smokeless Tobacco Use: No Alcohol Use: none Drug Use: none Housing status: lives with significant other Occupational Status: disabled Allergies Coded Allergies: No Known Allergies (Unverified , 06/14/18) Home Medications Scheduled Carvedilol (Coreg), 0.5 TAB PO BID Citalopram (Citalopram Hydrobromide), 1 TAB PO QAM Fish Oil ([place]-3), 1 CAP PO DAILY Furosemide (Lasix), 1 TAB PO DAILY Levothyroxine Sodium (Levothyroxine Sodium), 1 TAB PO DAILY Losartan Potassium (Cozaar), 1 TAB PO DAILY Meloxicam (Mobic), 15 MG PO DAILY Metformin Hcl (Glucophage), 500 MG PO QAM Mometasone Furoate-Formoterol (Dulera 200/5 Mcg), 2 PUFFS INH BID Montelukast Sodium (Singulair), 1 TAB PO HS Rosuvastatin Calcium (Crestor), 1 TAB PO DAILY Umeclidinium Northrop (Incruse Ellipta), 1 PUFF PO DAILY Scheduled PRN Albuterol Sulfate (Proair Respiclick), 2 PUFF PO Q4H PRN for SOB/Wheezing Lorazepam (Ativan), 0.5 MG PO Q8 PRN for Anxiety Zolpidem Tartrate (Zolpidem Tartrate), 1 TAB PO HS PRN for Insomnia Review of Systems See HPI for pertinent positives & negatives. All other systems reviewed and were otherwise negative Physical Exam Vital Signs Date Time Temp Pulse Resp B/P (MAP) Pulse Ox O2 Delivery O2 Flow Rate FiO2 06/14/18 16:11 56 16 148/86 94 Room Air 06/14/18 13:41 36.6 56 18 169/94 95 Room Air General Appearance: no apparent distress, + obese Head: normocephalic, atraumatic Eyes: normal inspection, PERRL, sclerae normal ENT: hearing grossly normal, pharynx normal, + pertinent finding (Mucous membranes moist) Neck: supple, trachea midline Respiratory/Chest: lungs clear, normal breath sounds, no respiratory distress Cardiovascular: no murmur, normal peripheral pulses, + bradycardia (Rate 56) Abdomen/GI: normal bowel sounds, non tender, soft Extremities/Musculoskelatal: + pertinent finding (Normal appearance except for RLE: Right knee with edema, tenderness to palpation entire anterior knee, limited flexion and extension of knee. Distal pulses palpable, sensation to light touch intact, brisk capillary refill) Neurologic/Psych: alert, normal mood/affect, oriented x 3 Skin: warm/dry Diagnostics Laboratory Results Results Past 24 Hours Test 06/14/18 16:55 06/14/18 18:18 06/14/18 18:20 Range/Units White Blood Count 12.55 4.8-10.8 K/uL Red Blood Count 4.36 4.2-5.4 M/uL Hemoglobin 13.0 12.0-16.0 g/dL Hematocrit 41.5 37-47 % Mean Corpuscular Volume 95.2 80-100 fL Mean Corpuscular Hemoglobin 29.8 25-34 pg Mean Corpuscular Hemoglobin Concent 31.3 32-36 g/dl Platelet Count 298 130-400 K/uL Mean Platelet Volume 9.8 7.4-10.4 fL Neutrophils (%) (Auto) 71.1 % Lymphocytes (%) (Auto) 21.4 % Monocytes (%) (Auto) 5.3 % Eosinophils (%) (Auto) 1.2 % Basophils (%) (Auto) 0.4 % Neutrophils # (Auto) 8.93 1.4-6.5 K/uL Lymphocytes # (Auto) 2.68 1.2-3.4 K/uL Monocytes # (Auto) 0.67 0.11-0.59 K/uL Eosinophils # (Auto) 0.15 0-0.5 K/uL Basophils # (Auto) 0.05 0-0.2 K/uL RDW Standard Deviation 54.9 36.4-46.3 fL RDW Coefficient of Variation 15.6 11.5-14.5 % Immature Granulocyte % (Auto) 0.6 % Immature Granulocyte # (Auto) 0.07 0.00-0.02 K/uL Diagnostic Radiology RIGHT KNEE X-RAY: IMPRESSION: 1. Findings highly suspicious for intra-articular fracture involving the medial aspect of the tibial plateau. Additional minimally displaced fracture of the fibular head. Noncontrast MR of the knee recommended to better characterize the extent of injury or alternatively CT. RIGHT KNEE CT: IMPRESSION: 1. Proximal tibial and fibular head fractures as described above. 2. Moderate lipohemarthrosis. CXR: IMPRESSION: No significant change compared to the prior study. No acute process. EKG EKG: Sinus bradycardia, rate 57, no ST elevation noted Impression Assessment and Plan Pt is 57 y/o F with PMH HTN, HLD, hypothyroidism, CRISTÓBAL, COPD, obesity hypoventilation syndrome, DM II presented to ER with complaint of right knee pain since this morning after she slipped and fell landing on right knee. RIGHT PROXIMAL TIBIAL FRACTURE/RIGHT PROXIMAL FIBULA FRACTURE S/P MECHANICAL FALL Right knee CT: Slightly impacted proximal tibial fracture which extends into the tibial spines and to the anterior lip of the lateral tibial plateau. Nondisplaced fibular head fracture. In ER: Vital stable, patient given morphine 4 mg IV, Zofran, NSS at 150 mL/h. EKG: sinus bradycardia, no ST changes noted. -pt low surgical risk - no hx CAD, arrhythmia, CHF, CVA, CKD. +hx DM not on insulin -Morphine and tramadol as needed pain -Orthoc consult-Dr. Contreras contacted by ER -Patient placed in knee immobilizer -N.p.o. after midnight in case of orthopedic procedure LEUKOCYTOSIS WBC: 12, afebrile. CXR: no infiltrate -pending UA -hold on antibiotics at this time -repeat cbc in am HTN Stable -continue coreg, losartan -hold lasix at this time DM II Glucose: 77 -A1c in am -hold metformin -diabetic diet -novolog sliding scale per HYPOTHYROIDISM TSH pending -continue levothyroxine CRISTÓBAL -Bipap HS per home settings COPD H/O OBESITY HYPOVENTILATION SYNDROME No SOB, wheezing or signs of exacerbation -continue home inhalers -albuterol neb prn ANXIETY -continue citalopram, lorazepam prn HLD -continue crestor TOBACCO ABUSE -Pt tried quitting 12/2017, trial of chantix but not taking currently -smoking cessation discussed DVT Prophylaxis -SCDs Admit medsurg Full Code Follows with Jessa Jones PA-C [facility] for routine care Pt was seen with Dr Mabry. See addendum ATTENDING ADDENDUM delayed entry date of service 06/14/18 care coordinated with HARSH Gibson please refer to her notes for full details, I agree with her notes patient seen and examined, records reviewed by myself as well on exam, patient seen resting in bed right knee pain is increasing again no chest pain, dyspnea, palpitations denies pain on other areas of the body no other symptoms VS noted and reviewed oriented x2, not in distress, speaks in sentences with no effort nor accessory muscle use normal rate, regular rhythm, no murmurs clear breath sounds bilaterally non distended, soft, nontender right leg: soft brace in place left leg: no bipedal edema, erythema, warmth no neuro deficits WBC 12.5 Crea 0.89 ASSESSMENT/PLAN> RIGHT TIBIAL FRACTURE no medical contraindications to proceed with Ortho Surgery low risk for cardio-pulmonary complications DM 2 hold Metformin ISS HTN continue usual BP meds other diagnoses and plan of care as per HARSH Vargas S notes Corey Mabry MD Resuscitation Status VTE Prophylaxis Will order VTE Prophylaxis: Yes Additional Copies To Corey Mabry MD
[2018-06-14 19:30] VITALS: BP 122/77; PULSE 73; TEMP 37; O2SAT 94
[2018-06-14 19:54] VITALS: BP 122/77; PULSE 73; TEMP 37; Ht 165.1 cm; Wt 116.8 kg
[2018-06-14] MEDS ORDERED: INSULIN ASPART 100 UNITS/ML 3 ML PEN SC SCH (21:00)
[2018-06-14] MEDS ORDERED: PNEUMOCOCCAL POLYSACCHARIDES 25 MCG/0.5 ML VIAL/SYR IM. ONE (21:45)
[2018-06-14] MEDS ORDERED: PNEUMOCOCCAL ADMINISTRATION CHARGE ONE (21:45)
[2018-06-14] MEDS: MoRPHine SULFATE 4 MG/ML 1 ML CARP\\VIAL IV PRN (22:38)
[2018-06-14] MEDS: MONTELUKAST SOD 10 MG TAB PO SCH (22:41)
[2018-06-14] MEDS: CARVEDILOL 6.25 MG TAB PO SCH (22:41)
[2018-06-14] MEDS: SODIUM CHLORIDE 0.9% 1000ML 1,000 ML IV SCH (22:43)
[2018-06-14 23:13] VITALS: BP 110/69; PULSE 65; TEMP 37.1; O2SAT 95
[2018-06-14] MEDS ORDERED: NURSING VERBAL MED ORDER ONE (23:15)
[2018-06-15] MEDS: ACETAMINOPHEN 325 MG TAB PO PRN ×3 (00:02→16:19)
[2018-06-15] MEDS: SODIUM CHLORIDE 0.9% 1000ML 1,000 ML IV SCH ×3 (01:12→23:43)
[2018-06-15] MEDS: MoRPHine SULFATE 4 MG/ML 1 ML CARP\\VIAL IV PRN ×5 (02:42→23:51)
[2018-06-15] MEDS: LEVOTHYROXINE 200 MCG TAB PO SCH (05:59)
[2018-06-15] MEDS: INSULIN ASPART 100 UNITS/ML 3 ML PEN SC SCH ×5 (06:00→21:00)
[2018-06-15 07:12] VITALS: BP 127/74; PULSE 62; TEMP 37; O2SAT 95
[2018-06-15 07:13] LABS: BASO % 0.3 %; BASO ABS # 0.03 K/uL (0-0.2); EOS ABS # 0.18 K/uL (0-0.5); HEMATOCRIT 36.7 % (37-47); HEMOGLOBIN 11.5 g/dL (12.0-16.0); IG# 0.05 K/uL (0.00-0.02); LYMPH % 26.8 %; LYMPH ABS # 2.47 K/uL (1.2-3.4); MEAN CELL VOLUME 96.1 fL (80-100); MEAN CORPUSCULAR HEMOGLOBIN 30.1 pg (25-34); MEAN CORPUSCULAR HGB CONC 31.3 g/dl (32-36); MEAN PLATELET VOLUME 8.9 fL (7.4-10.4); MONO % 8.6 %; MONO ABS # 0.79 K/uL (0.11-0.59); NEUT % 61.8 %; NEUT ABS # 5.68 K/uL (1.4-6.5); PLATELET COUNT 230 K/uL (130-400); RED CELL DISTRIBUTION WIDTH CV 15.8 % (11.5-14.5); RED CELL DISTRIBUTION WIDTH SD 55.8 fL (36.4-46.3)
--- NOTE | 2018-06-15 07:14 | EMERGENCY ROOM VISIT NOTE ---
ED Visit Note First contact with patient: 14:44 Chief Complaint: Right knee pain. History of Present Illness: Ms. Gutierrez is a 57-year-old white female who is brought into the ED via wheelchair accompanied by 2 female friends complaining of right knee pain. Historically patient reports she has degenerative joint disease in both knees. She is currently under the treatment of Dr. Jeevan Contreras for knee injections. Patient reports approximately 10 AM this morning, approximately 4 hours ago, she was feeding her dogs. She reports she was knocked to the ground by the dogs and she fell on to her right knee. She reports when she landed on the knee she heard and felt a popping sensation and she developed severe pain. Since that time her pain has been constant. She describes her discomfort as a deep achy sensation. She rates her discomfort 8/10. Her pain is nonradiating. Her pain worsens with all movement of the knee and minimally with palpation of the patella. She has not identified any alleviating factors related to the pain. She has not taken any medications for her pain prior to arrival at the hospital. She denies any associated symptoms including lightheadedness dizziness at the time of the fall, striking her head or loss of consciousness at the time of the fall and all signs of head injury since the fall, back pain, chest pain, shortness of breath, abdominal pain, nausea/vomiting, hip pain, ankle pain, leg weakness/numbness/tingling. Review of Systems: As noted above in history of present illness. All body systems were reviewed and found to be negative as noted above. Past Medical History: Hypothyroidism, 2 diabetes, hypertension, dyslipidemia, COPD, sleep apnea, left knee septic joint, status post left total knee arthroplasty, carpal tunnel release, tonsillectomy, adenoidectomy and tubal ligation. Current Medications: Medications Dose Route/Sig Max Daily Dose Days Date Category Zolpidem Tartrate 10 Mg Tab 1 Tab PO HS PRN 06/14/18 Reported Incruse Ellipta (Umeclidinium [place]) 62.5 Mcg/Inh Inh 1 Puff PO DAILY 06/14/18 Reported Crestor (Rosuvastatin Calcium) 10 Mg Tab 1 Tab PO DAILY 30 06/14/18 Reported Mobic (Meloxicam) 15 Mg Tab 15 Mg PO DAILY 06/14/18 Reported [place]-3 (Fish Oil) 1 Ea Cap 1 Cap PO DAILY 06/14/18 Reported Coreg (Carvedilol) 12.5 Mg Tab 0.5 Tab PO BID 90 06/14/18 Reported Proair Respiclick (Albuterol Sulfate) 108 Mcg/Act Aer 2 Puff PO Q4H PRN 06/14/18 Reported Singulair (Montelukast Sodium) 10 Mg Tab 1 Tab PO HS 03/31/17 Reported Lasix (Furosemide) 20 Mg Tab 1 Tab PO DAILY 03/31/17 Reported Cozaar (Losartan Potassium) 100 Mg Tab 1 Tab PO DAILY 03/31/17 Reported Levothyroxine Sodium 200 Mcg Tab 1 Tab PO DAILY 04/04/16 Reported Citalopram Hydrobromide (Citalopram) 40 Mg Tab 1 Tab PO QAM 90 04/04/16 Reported Glucophage (Metformin Hcl) 500 Mg Tab 500 Mg PO QAM 04/04/16 Reported Ativan (Lorazepam) 0.5 Mg Tab 0.5 Mg PO Q8 PRN 04/04/16 Reported Dulera 200/5 Mcg (Mometasone Furoate-Formoterol) 1 Aer Aer 2 Puffs INH BID 30 04/04/16 Reported Allergies to Medications: Patient denies. Social History: Patient is not currently employed; she reported that she was on disability; she feels safe in her home environment; she admits to tobacco use and denies alcohol use. Physical Examination: Vital Signs: Date Time Temp Pulse Resp B/P (MAP) Pulse Ox O2 Delivery O2 Flow Rate FiO2 06/14/18 16:11 56 16 148/86 94 Room Air 06/14/18 13:41 36.6 56 18 169/94 95 Room Air GENERAL: 57-year-old female in mild to moderate distress due to pain, nontoxic- appearing, afebrile and hemodynamically stable. NEUROLOGICAL: Awake, alert and oriented to person, place and time. Answering questions appropriately and following commands. Good hand eye coordination. SKIN: Warm, dry and pink. No soft tissue eruptions or trauma noted. HEENT: Atraumatic and normocephalic. PERRLA. Sclera white and conjunctiva pink. Pharynx is nonerythematous or edematous. Speech normal. No lymphadenopathy. Trachea midline. No jugular venous distention. BACK: No tenderness over the bony cervical, thoracic and lumbar spines. No CVA tenderness. THORAX: Lungs sounds are clear to auscultation and equal bilaterally with symmetrical chest wall. No wheezing, rales or rhonchi. No crepitus, tenderness , subcutaneous air or deformities noted. HEART: Bradycardic rate and rhythm. No gallops, rubs or murmurs are appreciated. ABDOMEN: Obese, soft and nontender. Positive bowel sounds in all quadrants. No guarding, rigidity or organomegaly. PELVIS: Stable and nontender to compression and rock. LOWER EXTREMITIES: No gross bony deformities. No shortening or malrotation. No tenderness over the hips, thighs, lower legs, ankles and feet. Moderate tenderness over the right knee patella without bony deformity or crepitus. There is moderate swelling over the anterior aspect of the knee without any ecchymosis/contusions. There was minimal tenderness over the quadriceps tendon without deformity. There was no joint line tenderness. Her knee was at approximately 5-10 of flexion on my initial evaluation and she had possibly another 5 of flexion and no extension of the knee. Because of her limited range of motion, pain and obesity it was tough to test her ligamentous structures but I did not find any laxity. Meniscus testing range of motion tests were deferred. She did have full range of motion in plantarflexion and dorsiflexion, inversion and eversion at the level of the ankle and flexion and extension of all toes. No calf tenderness or cords. Distal pulses, sensation and capillary refill was intact and equal bilaterally. No dependent edema. ED Course: Patient is assessed as noted above. Patient's medication list was reviewed. Laboratory Testing: Test 06/14/18 16:55 Range/Units White Blood Count 12.55 4.8-10.8 K/uL Red Blood Count 4.36 4.2-5.4 M/uL Hemoglobin 13.0 12.0-16.0 g/dL Hematocrit 41.5 37-47 % Mean Corpuscular Volume 95.2 80-100 fL Mean Corpuscular Hemoglobin 29.8 25-34 pg Mean Corpuscular Hemoglobin Concent 31.3 32-36 g/dl Platelet Count 298 130-400 K/uL Mean Platelet Volume 9.8 7.4-10.4 fL Neutrophils (%) (Auto) 71.1 % Lymphocytes (%) (Auto) 21.4 % Monocytes (%) (Auto) 5.3 % Eosinophils (%) (Auto) 1.2 % Basophils (%) (Auto) 0.4 % Neutrophils # (Auto) 8.93 1.4-6.5 K/uL Lymphocytes # (Auto) 2.68 1.2-3.4 K/uL Monocytes # (Auto) 0.67 0.11-0.59 K/uL Eosinophils # (Auto) 0.15 0-0.5 K/uL Basophils # (Auto) 0.05 0-0.2 K/uL RDW Standard Deviation 54.9 36.4-46.3 fL RDW Coefficient of Variation 15.6 11.5-14.5 % Immature Granulocyte % (Auto) 0.6 % Immature Granulocyte # (Auto) 0.07 0.00-0.02 K/uL Prothrombin Time 10.0 9.0-12.0 SECONDS Prothromb Time International Ratio 1.0 0.9-1.1 Activated Partial Thromboplast Time 25.2 21.0-31.0 SECONDS Partial Thromboplastin Ratio 1.0 Sodium Level 139 136-145 mmol/L Potassium Level 3.7 3.5-5.1 mmol/L Chloride Level 103 98-107 mmol/L Carbon Dioxide Level 29 21-32 mmol/L Anion Gap 7.0 3-11 mmol/L Blood Urea Nitrogen 17 7-18 mg/dl Creatinine 0.89 0.60-1.20 mg/dl Estimated GFR () 83.4 Estimated GFR (Non- 71.9 BUN/Creatinine Ratio 19.0 10-20 Random Glucose 77 70-99 mg/dl Calcium Level 9.4 8.5-10.1 mg/dl Thyroid Stimulating Hormone (TSH) 7.740 0.300-4.500 uIu/ml Right Knee X-Rays: Were read by myself and the radiologist showing a medial tibial plateau fracture with possible intra-articular extension and a minimally displaced fibular head fracture. Right Knee CT: Was reviewed by myself and read by the radiologist showing a proximal tibial plateau fracture. Located over the medial proximal tibia with no extension into the articular surface and nondisplaced fibular head fracture. The tibial fracture demonstrates up to 3 mm of depression of the anterior lip of the plateau. There is moderate lipohemarthrosis. 1 of the fracture fragments measures up to 3 mm of anterior displacement. Chest X-Ray: Was read by myself and the radiologist showing no acute infiltrates , effusions or pneumothorax. Heart border is enlarged. No bony fractures were noted. This was compared to a previous and no acute changes were noted. Patient was hydrated with normal saline and received 4 mg of morphine IV for pain and 4 mg of Zofran IV. Patient was reassessed multiple times during her stay in the emergency department. At patient's request a Hua catheter was placed. Patient's case was reviewed with Dr. Corona; we agreed on diagnostic approach , treatment, disposition and plan. Patient's case was consulted with Dr. Contreras, orthopedic surgeon; he suggested CT, immobilization and admission/observation. Patient's case was consulted with Ms. Arias, [facility]ist, for medical observation/admission. Patient was educated about today's findings. Clinical Impression: Right tibial plateau fracture. Right fibular head fracture. Status post fall. Disposition and Plan: Patient be brought into the hospital for observation/ admission; please see their notes and orders for final disposition and plan.
[2018-06-15 07:42] LABS: CALCIUM 8.1 mg/dl (8.5-10.1); CREATININE 0.81 mg/dl (0.60-1.20)
[2018-06-15] MEDS: ROSUVASTATIN CALCIUM 10 MG TAB PO SCH (08:29)
[2018-06-15] MEDS: CARVEDILOL 6.25 MG TAB PO SCH ×2 (08:29→21:34)
[2018-06-15] MEDS: LOSARTAN POTASSIUM 50 MG TAB PO SCH (08:29)
[2018-06-15] MEDS: CITALOPRAM 40 MG TAB PO SCH (08:29)
[2018-06-15 08:35] VITALS: BP 128/82; PULSE 63
--- NOTE | 2018-06-15 09:59 | Orthopedic Consultation ---
Orthopedic Consultation Date of Consultation: Jun 15, 2018. Attending Physician: Tristen Smith MD Reason for Consultation: Right Tibial Plateau Fracture History of Present Illness 57-year-old white female who states that while she was outside with her dogs, 1 of the dogs jumped up on her and she lost her balance. She slipped in the mud and fell onto her right knee. She had immediate pain in the right knee and was having difficulty ambulating. She had difficulty in performing range of motion at that time. She was brought to the emergency room at [facility] was seen by the staff. X-rays were taken. It was found that she had a right tibial plateau fracture. Medicine service admitted the patient to [facility] and we have been asked to see her for her tibial plateau fracture. She denies any loss of consciousness, denies chest pain, shortness of breath, lightheadedness prior to or after the fall. Past Medical/Surgical History (1) COPD (chronic obstructive pulmonary disease) Status: Chronic (2) DM type 2 (diabetes mellitus, type 2) Status: Chronic (3) HTN (hypertension) Status: Chronic (4) Hyperlipidemia Status: Chronic (5) Hypothyroidism Status: Chronic (6) Infection of left knee s/p knee arthroscopic surgery Status: Resolved (7) Obesity hypoventilation syndrome Status: Chronic (8) CRISTÓBAL (obstructive sleep apnea) Permanent Comment: BiPAP at bedtime Status: Chronic (9) Septic joint of left knee joint Status: Resolved Surgical Problems: (1) H/O arthroscopy of left knee Status: Resolved (2) History of carpal tunnel surgery Status: Resolved (3) History of tonsillectomy and adenoidectomy Status: Resolved (4) History of tubal ligation Status: Resolved (5) h/o bilateral CMC arthroplasties Family History CHF (congestive heart failure) Depression Diabetes mellitus Stroke Social History Smoking Status: Current Every Day Smoker Smokeless Tobacco Use: No Alcohol Use: none Drug Use: none Housing Status: lives alone Occupation Status: disabled Allergies Coded Allergies: No Known Allergies (Unverified , 06/14/18) Home Medications Scheduled Carvedilol (Coreg), 0.5 TAB PO BID Citalopram (Citalopram Hydrobromide), 1 TAB PO QAM Fish Oil ([place]-3), 1 CAP PO DAILY Furosemide (Lasix), 1 TAB PO DAILY Levothyroxine Sodium (Levothyroxine Sodium), 1 TAB PO DAILY Losartan Potassium (Cozaar), 1 TAB PO DAILY Meloxicam (Mobic), 15 MG PO DAILY Metformin Hcl (Glucophage), 500 MG PO QAM Mometasone Furoate-Formoterol (Dulera 200/5 Mcg), 2 PUFFS INH BID Montelukast Sodium (Singulair), 1 TAB PO HS Rosuvastatin Calcium (Crestor), 1 TAB PO DAILY Umeclidinium [place] (Incruse Ellipta), 1 PUFF PO DAILY Scheduled PRN Albuterol Sulfate (Proair Respiclick), 2 PUFF PO Q4H PRN for SOB/Wheezing Lorazepam (Ativan), 0.5 MG PO Q8 PRN for Anxiety Zolpidem Tartrate (Zolpidem Tartrate), 1 TAB PO HS PRN for Insomnia Current Inpatient Medications Current Inpatient Medications Medications (Trade) Dose Ordered Sig/Shikha Route Start Time Stop Time Status Last Admin Dose Admin Acetaminophen (Tylenol Tab) 650 mg Q4H PRN PO 06/14/18 18:30 07/14/18 18:29 06/15/18 00:02 650 MG Polyethylene (Miralax Powder Packet) 17 gm DAILY PRN PO 06/14/18 18:30 07/14/18 18:29 Ondansetron HCl (Zofran Inj) 4 mg Q6H PRN IV 06/14/18 18:30 07/14/18 18:29 Morphine Sulfate (MoRPHine SULFATE INJ) 3 mg Q4 PRN IV 06/14/18 18:30 06/28/18 18:29 06/15/18 07:40 3 MG Tramadol HCl (Ultram Tab) 50 mg Q6 PRN PO 06/14/18 18:30 07/14/18 18:29 06/14/18 20:22 50 MG Carvedilol (Coreg Tab) 6.25 mg BID PO 06/14/18 21:00 07/14/18 20:59 06/15/18 08:29 6.25 MG Citalopram Hydrobromide (celeXA TAB) 40 mg QAM PO 06/15/18 09:00 07/15/18 08:59 06/15/18 08:29 40 MG Levothyroxine Sodium (Synthroid Tab) 200 mcg DAILYBB PO 06/15/18 06:00 07/15/18 06:59 06/15/18 05:59 200 MCG Lorazepam (Ativan Tab) 0.5 mg Q8 PRN PO 06/14/18 18:45 07/14/18 18:44 06/14/18 22:54 0.5 MG Losartan Potassium (coZAAR TAB) 100 mg DAILY PO 06/15/18 09:00 07/15/18 08:59 06/15/18 08:29 100 MG Montelukast Sodium (Singulair Tab) 10 mg HS PO 06/14/18 21:00 07/14/18 20:59 06/14/18 22:41 10 MG Rosuvastatin Calcium (Crestor Tab) 10 mg DAILY PO 06/15/18 09:00 07/15/18 08:59 06/15/18 08:29 10 MG Miscellaneous Information (Order Awaiting Action) 1 ea QS N/A 06/15/18 00:00 07/15/18 00:00 Miscellaneous Information (Order Awaiting Action) 1 ea QS N/A 06/15/18 00:00 07/15/18 00:00 Albuterol Sulfate (Ventolin 0.083% 2.5MG/3ML Neb) 2.5 mg Q6R PRN INH 06/14/18 18:45 07/14/18 18:44 Glucose (Glucose 40% Gel) 15-30 GRAMS 15 GRAMS... UD PRN PO 06/14/18 19:00 07/14/18 18:59 Glucose (Glucose Chew Tab) 4-8 Tablets 4 Tabl... UD PRN PO 06/14/18 19:00 07/14/18 18:59 Dextrose (Dextrose 50% 50ML Syringe) 25-50ML 25ML FOR ... UD PRN IV 06/14/18 19:00 07/14/18 18:59 Glucagon (Glucagon Inj) 1 mg UD PRN SQ 06/14/18 19:00 07/14/18 18:59 Carbohydrates (Carbohydrates For Hypoglycemia) 15-30 GRAMS 15 grams if BSG 54-69... UD PRN PO 06/14/18 19:00 07/14/18 18:59 Sodium Chloride 1,000 ml @ 80 mls/hr [id number] IV 06/14/18 21:30 07/14/18 21:29 06/15/18 01:12 80 MLS/HR Insulin Aspart (novoLOG ASPART) SLIDING SCALE If C... Q6 SC 06/15/18 00:00 07/15/18 00:00 Review of Systems As per admitting history and physical Physical Exam Date Time Temp Pulse Resp B/P (MAP) Pulse Ox O2 Delivery O2 Flow Rate FiO2 06/15/18 08:35 63 128/82 (97) 06/15/18 07:12 37.0 62 18 127/74 (91) 95 Nasal Cannula 2.0 06/14/18 23:50 Nasal Cannula 2.0 06/14/18 23:13 37.1 65 18 110/69 (83) 95 Nasal Cannula 2.0 06/14/18 19:54 37.0 73 18 122/77 Room Air 06/14/18 19:45 Room Air 06/14/18 19:30 37.0 73 18 122/77 (92) 94 Room Air 06/14/18 19:20 36.6 64 16 134/89 91 06/14/18 18:54 64 16 134/89 91 Room Air 06/14/18 18:31 61 16 124/85 94 Room Air 06/14/18 16:11 56 16 148/86 94 Room Air 06/14/18 13:41 36.6 56 18 169/94 95 Room Air Patient is a 57-year-old white female who appears her stated age. She is pleasant and cooperative, awake and alert, oriented 3, in no acute distress. Focusing my exam on her right lower extremity, and immobilizer is present on the right knee. This was opened up enough to examine her right knee. The knee does have an effusion but does not feel tense. Motion is very limited due to fracture pain. There is no overt erythema or bruising noted at this time. No open cuts or abrasions. Thigh is soft and nontender. Upon palpating the right calf, she complains of pain in the calf itself. She has one main area in the body of the calf has the pain on palpation and nowhere else. I cannot appreciate any palpable cords but she does have a small amount of swelling in the right ankle compared to the left. Upon performing Homans exam, she does have some increased pain in that area. Distal pulses are equal bilaterally and sensation is intact. Capillary refill is less than 2 seconds. She has good range of motion of her right ankle which she states does cause some pain in her knee but the increased pain is mostly in her calf. She denies discomfort in the left lower extremity or the bilateral upper extremities. Range of motion is within normal limits. There is no gross motor or sensory loss at this time other than due to decreased range of motion due to fracture. Immobilizer was reapplied. Laboratory Results Last 24 Hours Test 06/14/18 16:55 06/14/18 21:42 06/14/18 21:50 06/14/18 23:59 White Blood Count 12.55 K/uL Red Blood Count 4.36 M/uL Hemoglobin 13.0 g/dL Hematocrit 41.5 % Mean Corpuscular Volume 95.2 fL Mean Corpuscular Hemoglobin 29.8 pg Mean Corpuscular Hemoglobin Concent 31.3 g/dl Platelet Count 298 K/uL Mean Platelet Volume 9.8 fL Neutrophils (%) (Auto) 71.1 % Lymphocytes (%) (Auto) 21.4 % Monocytes (%) (Auto) 5.3 % Eosinophils (%) (Auto) 1.2 % Basophils (%) (Auto) 0.4 % Neutrophils # (Auto) 8.93 K/uL Lymphocytes # (Auto) 2.68 K/uL Monocytes # (Auto) 0.67 K/uL Eosinophils # (Auto) 0.15 K/uL Basophils # (Auto) 0.05 K/uL RDW Standard Deviation 54.9 fL RDW Coefficient of Variation 15.6 % Immature Granulocyte % (Auto) 0.6 % Immature Granulocyte # (Auto) 0.07 K/uL Prothrombin Time 10.0 SECONDS Prothromb Time International Ratio 1.0 Activated Partial Thromboplast Time 25.2 SECONDS Partial Thromboplastin Ratio 1.0 Sodium Level 139 mmol/L Potassium Level 3.7 mmol/L Chloride Level 103 mmol/L Carbon Dioxide Level 29 mmol/L Anion Gap 7.0 mmol/L Blood Urea Nitrogen 17 mg/dl Creatinine 0.89 mg/dl Estimated GFR () 83.4 Estimated GFR (Non- 71.9 BUN/Creatinine Ratio 19.0 Random Glucose 77 mg/dl Calcium Level 9.4 mg/dl Thyroid Stimulating Hormone (TSH) 7.740 uIu/ml Bedside Glucose 147 mg/dl 126 mg/dl Urine Color YELLOW Urine Appearance CLEAR Urine pH 5.5 Urine Specific [place] 1.015 Urine Protein TRACE Urine Glucose (UA) NEG Urine Ketones NEG Urine Occult Blood 2+ Urine Nitrite NEG Urine Bilirubin NEG Urine Urobilinogen NEG Urine Leukocyte Esterase NEG Urine WBC (Auto) 1-5 /hpf Urine RBC (Auto) 5-10 /hpf Urine Hyaline Casts (Auto) 1-5 /lpf Urine Epithelial Cells (Auto) 10-20 /lpf Urine Bacteria (Auto) NEG Test 06/15/18 06:55 White Blood Count 9.20 K/uL Red Blood Count 3.82 M/uL Hemoglobin 11.5 g/dL Hematocrit 36.7 % Mean Corpuscular Volume 96.1 fL Mean Corpuscular Hemoglobin 30.1 pg Mean Corpuscular Hemoglobin Concent 31.3 g/dl Platelet Count 230 K/uL Mean Platelet Volume 8.9 fL Neutrophils (%) (Auto) 61.8 % Lymphocytes (%) (Auto) 26.8 % Monocytes (%) (Auto) 8.6 % Eosinophils (%) (Auto) 2.0 % Basophils (%) (Auto) 0.3 % Neutrophils # (Auto) 5.68 K/uL Lymphocytes # (Auto) 2.47 K/uL Monocytes # (Auto) 0.79 K/uL Eosinophils # (Auto) 0.18 K/uL Basophils # (Auto) 0.03 K/uL RDW Standard Deviation 55.8 fL RDW Coefficient of Variation 15.8 % Immature Granulocyte % (Auto) 0.5 % Immature Granulocyte # (Auto) 0.05 K/uL Sodium Level 139 mmol/L Potassium Level 4.0 mmol/L Chloride Level 105 mmol/L Carbon Dioxide Level 28 mmol/L Anion Gap 6.0 mmol/L Blood Urea Nitrogen 18 mg/dl Creatinine 0.81 mg/dl Est Creatinine Clear Calc Drug Dose 97.9 ml/min Estimated GFR () 93.4 Estimated GFR (Non- 80.6 BUN/Creatinine Ratio 22.3 Random Glucose 101 mg/dl Estimated Average Glucose 126 mg/dl Hemoglobin A1c 6.0 % Calcium Level 8.1 mg/dl Hepatitis C Antibody Screen NEG DIAGNOSTIC IMAGING [~ rep ct add3]] RIGHT KNEE CT CT DOSE: 225.19 mGy.cm HISTORY: fall; R knee pain TECHNIQUE: Multiaxial CT images of the right knee were performed and reformatted in the sagittal and coronal plane without the use of contrast. A dose lowering technique was utilized adhering to the principles of ALARA. COMPARISON: Right knee 06/14/2018. FINDINGS: Slightly impacted proximal tibial fracture which extends into the tibial spines and to the anterior lip of the lateral tibial plateau. The fracture also extends to the medial proximal tibia but does not clearly extend to the articular surface. Nondisplaced fibular head fracture. The fracture at the proximal tibia demonstrates up to 3 mm of depression at the anterior lip of the lateral tibial plateau. The distal femur and patella are intact. There is a moderate lipohemarthrosis. One of the fracture fragments 7 measures up to 3 mm of anterior displacement. IMPRESSION: 1. Proximal tibial and fibular head fractures as described above. 2. Moderate lipohemarthrosis. Assessment & Plan Assessment: Right tibial plateau fracture with nondisplaced right proximal fibular head fracture. Plan: Patient is currently n.p.o. and I am currently in discussion with Dr. Contreras about treatment for this fracture. She will likely need ORIF of this fracture and she will be added onto the surgery schedule at this time. With her current calf pain and somewhat of an increased Homans exam, I will plan for an ultrasound of the right calf at this time.
--- NOTE | 2018-06-15 13:39 | DIAGNOSTIC IMAGING REPORT ---
R VENOUS DOPP LOWER EXT UNILAT CLINICAL HISTORY: 57 years-old Female presenting with fall, right knee pain, clinical concern for deep venous thrombosis. TECHNIQUE: Real-time grayscale and color and spectral Doppler ultrasound imaging of the veins of the right lower extremity was performed. Compression and augmentation were also utilized. COMPARISON: None. FINDINGS: RIGHT: Common femoral vein: Patent. Greater saphenous vein: Patent. Deep femoral vein: Patent. Femoral vein: Patent. Popliteal vein: Patent. Calf veins: Limited visualization. Other: None. IMPRESSION: No evidence of deep venous thrombosis. Electronically signed by: Chin Michaud M.D. 06/15/2018 1:37 PM Dictated Date/Time: 06/15/2018 1:37 PM
[2018-06-15] MEDS ORDERED: FENTANYL CITRATE INJ 50 MCG/1 ML 2 ML VIAL ONE (13:56)
[2018-06-15] MEDS ORDERED: MIDAZOLAM HCL 1 MG/ML 2ML VIAL ONE (13:56)
[2018-06-15] MEDS ORDERED: PROPOFOL IV EMULSION 10 MG/ML 20 ML VIAL ONE (13:56)
[2018-06-15] MEDS ORDERED: LIDOCAINE HCL 2% 2 ML VIAL (20MG/ML) ONE (13:56)
[2018-06-15] MEDS ORDERED: ONDANSETRON INJ 2 MG/ML 2 ML VIAL ONE (13:56)
[2018-06-15] MEDS ORDERED: DEXAMETHASONE SOD INJ 4 MG/ML VIAL ONE (13:56)
[2018-06-15] MEDS ORDERED: NURSING VERBAL MED ORDER ONE (14:15)
[2018-06-15 15:02] VITALS: BP 100/64; PULSE 63; TEMP 36.9; O2SAT 95
--- NOTE | 2018-06-15 15:02 | Progress Note ---
Internal Med Progress Note Date of Service: Jun 15, 2018. Provider Documentation: SUBJECTIVE: Seen and examined at bedside Complains of significant right knee pain Denies chest pain, SOB, dizziness, numbness, tingling No other complaints OBJECTIVE: Vital Signs-as noted below Physical Exam: General Appearance:Obese, no apparent distress Head: normocephalic, Atraumatic Eyes: normal inspection, EOMI, PERRL Neck: supple, Trachea midline Respiratory/Chest: Decreased breath sounds, CTA Cardiovascular: S1, S2, No murmur Abdomen/GI:Soft, Non tender, Bowel sounds present Extremities/Musculoskelatal:normal inspection, no edema, Right knee brace Neurologic/Psych:AAOX3, grossly no focal neurological deficits Skin: normal color, warm Lab data as noted below. ASSESSMENT & PLAN: Patient is a 57 yr female with PMH HTN, HLD, hypothyroidism, CRISTÓBAL, COPD, obesity hypoventilation syndrome, DM II presented to ER with complaint of right knee pain secondary to a mechanical fall. Right Tibial Plateau Fracture Right Proximal Fibular head fracture S/P mechanical Fall Right knee CT: Proximal tibial and fibular head fractures as described above. Moderate lipohemarthrosis. Venous Doppler: No evidence of deep venous thrombosis. Pain control Orthopedics Consulted Continue knee Immobilizer Possible ORIF tomorrow HTN Stable continue coreg, losartan hold lasix for now DM II A1c:6.0 hold metformin Continue ISS Monitor BGs Hypothyroidism: TSH:7.7 continue levothyroxine Plan to repeat Thyroid function test in AM CRISTÓBAL BiPAP QHS COPD H/O Obesity Hypoventilation Syndrome No respiratory complaints continue home inhalers Anxiety: continue citalopram, lorazepam prn HLD continue statin Tobacco Abuse smoking cessation DVT Px: SCDs Code Status Full Code Disposition: PT/OT To be determined Vital Signs: Date Time Temp Pulse Resp B/P (MAP) Pulse Ox O2 Delivery O2 Flow Rate FiO2 06/15/18 08:35 63 128/82 (97) 06/15/18 07:20 Nasal Cannula 2.0 06/15/18 07:12 37.0 62 18 127/74 (91) 95 Nasal Cannula 2.0 06/14/18 23:50 Nasal Cannula 2.0 06/14/18 23:13 37.1 65 18 110/69 (83) 95 Nasal Cannula 2.0 06/14/18 19:54 37.0 73 18 122/77 Room Air 06/14/18 19:45 Room Air 06/14/18 19:30 37.0 73 18 122/77 (92) 94 Room Air 06/14/18 19:20 36.6 64 16 134/89 91 06/14/18 18:54 64 16 134/89 91 Room Air 06/14/18 18:31 61 16 124/85 94 Room Air 06/14/18 16:11 56 16 148/86 94 Room Air Lab Results: Results Past 24 Hours Test 06/14/18 16:55 06/14/18 21:42 06/14/18 21:50 06/14/18 23:59 Range/Units White Blood Count 12.55 4.8-10.8 K/uL Red Blood Count 4.36 4.2-5.4 M/uL Hemoglobin 13.0 12.0-16.0 g/dL Hematocrit 41.5 37-47 % Mean Corpuscular Volume 95.2 80-100 fL Mean Corpuscular Hemoglobin 29.8 25-34 pg Mean Corpuscular Hemoglobin Concent 31.3 32-36 g/dl Platelet Count 298 130-400 K/uL Mean Platelet Volume 9.8 7.4-10.4 fL Neutrophils (%) (Auto) 71.1 % Lymphocytes (%) (Auto) 21.4 % Monocytes (%) (Auto) 5.3 % Eosinophils (%) (Auto) 1.2 % Basophils (%) (Auto) 0.4 % Neutrophils # (Auto) 8.93 1.4-6.5 K/uL Lymphocytes # (Auto) 2.68 1.2-3.4 K/uL Monocytes # (Auto) 0.67 0.11-0.59 K/uL Eosinophils # (Auto) 0.15 0-0.5 K/uL Basophils # (Auto) 0.05 0-0.2 K/uL RDW Standard Deviation 54.9 36.4-46.3 fL RDW Coefficient of Variation 15.6 11.5-14.5 % Immature Granulocyte % (Auto) 0.6 % Immature Granulocyte # (Auto) 0.07 0.00-0.02 K/uL Prothrombin Time 10.0 9.0-12.0 SECONDS Prothromb Time International Ratio 1.0 0.9-1.1 Activated Partial Thromboplast Time 25.2 21.0-31.0 SECONDS Partial Thromboplastin Ratio 1.0 Sodium Level 139 136-145 mmol/L Potassium Level 3.7 3.5-5.1 mmol/L Chloride Level 103 98-107 mmol/L Carbon Dioxide Level 29 21-32 mmol/L Anion Gap 7.0 3-11 mmol/L Blood Urea Nitrogen 17 7-18 mg/dl Creatinine 0.89 0.60-1.20 mg/dl Estimated GFR () 83.4 Estimated GFR (Non- 71.9 BUN/Creatinine Ratio 19.0 10-20 Random Glucose 77 70-99 mg/dl Calcium Level 9.4 8.5-10.1 mg/dl Thyroid Stimulating Hormone (TSH) 7.740 0.300-4.500 uIu/ml Bedside Glucose 147 126 70-90 mg/dl Urine Color YELLOW Urine Appearance CLEAR CLEAR Urine pH 5.5 4.5-7.5 Urine Specific [place] 1.015 1.000-1.030 Urine Protein TRACE NEG Urine Glucose (UA) NEG NEG Urine Ketones NEG NEG Urine Occult Blood 2+ NEG Urine Nitrite NEG NEG Urine Bilirubin NEG NEG Urine Urobilinogen NEG NEG Urine Leukocyte Esterase NEG NEG Urine WBC (Auto) 1-5 0-5 /hpf Urine RBC (Auto) 5-10 0-4 /hpf Urine Hyaline Casts (Auto) 1-5 0-5 /lpf Urine Epithelial Cells (Auto) 10-20 0-5 /lpf Urine Bacteria (Auto) NEG NEG Test 06/15/18 06:01 06/15/18 06:55 Range/Units Bedside Glucose 107 70-90 mg/dl White Blood Count 9.20 4.8-10.8 K/uL Red Blood Count 3.82 4.2-5.4 M/uL Hemoglobin 11.5 12.0-16.0 g/dL Hematocrit 36.7 37-47 % Mean Corpuscular Volume 96.1 80-100 fL Mean Corpuscular Hemoglobin 30.1 25-34 pg Mean Corpuscular Hemoglobin Concent 31.3 32-36 g/dl Platelet Count 230 130-400 K/uL Mean Platelet Volume 8.9 7.4-10.4 fL Neutrophils (%) (Auto) 61.8 % Lymphocytes (%) (Auto) 26.8 % Monocytes (%) (Auto) 8.6 % Eosinophils (%) (Auto) 2.0 % Basophils (%) (Auto) 0.3 % Neutrophils # (Auto) 5.68 1.4-6.5 K/uL Lymphocytes # (Auto) 2.47 1.2-3.4 K/uL Monocytes # (Auto) 0.79 0.11-0.59 K/uL Eosinophils # (Auto) 0.18 0-0.5 K/uL Basophils # (Auto) 0.03 0-0.2 K/uL RDW Standard Deviation 55.8 36.4-46.3 fL RDW Coefficient of Variation 15.8 11.5-14.5 % Immature Granulocyte % (Auto) 0.5 % Immature Granulocyte # (Auto) 0.05 0.00-0.02 K/uL Sodium Level 139 136-145 mmol/L Potassium Level 4.0 3.5-5.1 mmol/L Chloride Level 105 98-107 mmol/L Carbon Dioxide Level 28 21-32 mmol/L Anion Gap 6.0 3-11 mmol/L Blood Urea Nitrogen 18 7-18 mg/dl Creatinine 0.81 0.60-1.20 mg/dl Est Creatinine Clear Calc Drug Dose 97.9 ml/min Estimated GFR () 93.4 Estimated GFR (Non- 80.6 BUN/Creatinine Ratio 22.3 10-20 Random Glucose 101 70-99 mg/dl Estimated Average Glucose 126 mg/dl Hemoglobin A1c 6.0 4.5-5.6 % Calcium Level 8.1 8.5-10.1 mg/dl Hepatitis C Antibody Screen NEG NEG
--- NOTE | 2018-06-15 16:26 | Progress Note ---
Progress Note Date of Service Jun 15, 2018. Progress Note The patient is a 57 y/o female scheduled for ORIF of R tibial plateau fracture tomorrow. A preoperative evaluation was completed. The patient was consented for general anesthesia. She was counseled to remain NPO after midnight except for sips of water with pills.
[2018-06-15 21:32] VITALS: BP 112/77; PULSE 63
[2018-06-15] MEDS: MONTELUKAST SOD 10 MG TAB PO SCH (21:34)
[2018-06-15 23:02] VITALS: BP 122/75; PULSE 64; TEMP 37.2; O2SAT 97
[2018-06-16] MEDS ORDERED: NURSING VERBAL MED ORDER ONE ×2 (01:45→15:30)
[2018-06-16] MEDS: LEVOTHYROXINE 200 MCG TAB PO SCH (05:31)
[2018-06-16] MEDS: MoRPHine SULFATE 4 MG/ML 1 ML CARP\\VIAL IV PRN ×3 (05:42→18:06)
[2018-06-16] MEDS: INSULIN ASPART 100 UNITS/ML 3 ML PEN SC SCH ×4 (05:47→20:54)
[2018-06-16 07:32] VITALS: BP 141/85; PULSE 60; TEMP 36.8; O2SAT 90
[2018-06-16 07:33] VITALS: O2SAT 90
[2018-06-16 07:34] LABS: CALCIUM 8.3 mg/dl (8.5-10.1); CREATININE 0.78 mg/dl (0.60-1.20); POTASSIUM 4.1 mmol/L (3.5-5.1)
[2018-06-16] MEDS: CITALOPRAM 40 MG TAB PO SCH (07:58)
[2018-06-16] MEDS: ROSUVASTATIN CALCIUM 10 MG TAB PO SCH (07:59)
[2018-06-16] MEDS: LOSARTAN POTASSIUM 50 MG TAB PO SCH (07:59)
[2018-06-16] MEDS: ACETAMINOPHEN 325 MG TAB PO PRN ×2 (08:04→20:48)
[2018-06-16] MEDS: CARVEDILOL 6.25 MG TAB PO SCH ×2 (08:04→20:46)
[2018-06-16 08:11] VITALS: PULSE 62
[2018-06-16 12:02] VITALS: BP 129/81; PULSE 57; TEMP 36.8; O2SAT 90
[2018-06-16] MEDS: SODIUM CHLORIDE 0.9% 1000ML 1,000 ML IV SCH ×2 (12:14→23:56)
[2018-06-16] MEDS ORDERED: FENTANYL CITRATE INJ 50 MCG/1 ML 2 ML VIAL ONE (12:25)
[2018-06-16] MEDS ORDERED: MIDAZOLAM HCL 1 MG/ML 2ML VIAL ONE (12:25)
--- NOTE | 2018-06-16 13:12 | Orthopedic Progress Note ---
Orthopedic Progress Note Date of Service Jun 16, 2018. Subjective Post OP Day: Additional Notes: Patient lying in bed with immobilizer one. She is scheduled for ORIF of tibial fracture today by Dr. Bill. Pain is well controlled. Objective calves soft nontender, A&O x3, toes mobile Knee with immobilizer and ice pack on. Date Time Temp Pulse Resp B/P (MAP) Pulse Ox O2 Delivery O2 Flow Rate FiO2 06/16/18 12:02 36.8 57 16 129/81 (97) 90 Room Air 06/16/18 08:11 62 06/16/18 07:33 90 Room Air 06/16/18 07:32 36.8 60 16 141/85 (103) 90 Room Air 06/16/18 07:30 Nasal Cannula 2.0 06/15/18 23:41 Nasal Cannula 2.0 06/15/18 23:02 37.2 64 20 122/75 (91) 97 Nasal Cannula 2.0 06/15/18 21:32 63 112/77 (89) 06/15/18 19:20 Room Air 06/15/18 15:02 36.9 63 18 100/64 (76) 95 Assessment & Plan Assessment: Right tibial plateau fracture with non displaced fibular head fracture Plan: Patient is NPO. She is scheduled for ORIF of tibial plateau fracture today by Dr. Herring. All questions were answered
--- NOTE | 2018-06-16 13:22 | Progress Note ---
Internal Med Progress Note Date of Service: Jun 16, 2018. Provider Documentation: SUBJECTIVE: Seen and examined at bedside Reports right knee pain Planned for ORIF by Dr. Bill today Denies chest pain, SOB, dizziness No other complaints OBJECTIVE: Vital Signs-as noted below Physical Exam: General Appearance:Obese, no apparent distress Head: normocephalic, Atraumatic Eyes: normal inspection, EOMI, PERRL Neck: supple, Trachea midline Respiratory/Chest: Decreased breath sounds, CTA Cardiovascular: S1, S2, No murmur Abdomen/GI:Soft, Non tender, Bowel sounds present Extremities/Musculoskelatal:normal inspection, no edema, Right knee immobilizer Neurologic/Psych:AAOX3, grossly no focal neurological deficits Skin: normal color, warm Lab data as noted below. ASSESSMENT & PLAN: Patient is a 57 yr female with PMH HTN, HLD, hypothyroidism, CRISTÓBAL, COPD, obesity hypoventilation syndrome, DM II presented to ER with complaint of right knee pain secondary to a mechanical fall. Right Tibial Plateau Fracture Right Proximal Fibular head fracture S/P mechanical Fall Right knee CT: Proximal tibial and fibular head fractures as described above. Moderate lipohemarthrosis. Venous Doppler: No evidence of deep venous thrombosis. Pain control Appreciate Orthopedics help Continue knee Immobilizer Planned for ORIF by Dr. Bill today HTN Stable continue coreg, losartan hold lasix for now DM II A1c:6.0 hold metformin Continue ISS Monitor BGs Hypothyroidism: TSH:7.7 continue levothyroxine Repeat TSH, free T4 CRISTÓBAL BiPAP QHS COPD H/O Obesity Hypoventilation Syndrome No respiratory complaints continue home inhalers Anxiety: continue citalopram, lorazepam prn HLD continue statin Tobacco Abuse smoking cessation DVT Px: SCDs Code Status Full Code Disposition: PT/OT To be determined Vital Signs: Date Time Temp Pulse Resp B/P (MAP) Pulse Ox O2 Delivery O2 Flow Rate FiO2 06/16/18 12:02 36.8 57 16 129/81 (97) 90 Room Air 06/16/18 08:11 62 06/16/18 07:33 90 Room Air 06/16/18 07:32 36.8 60 16 141/85 (103) 90 Room Air 06/16/18 07:30 Nasal Cannula 2.0 06/15/18 23:41 Nasal Cannula 2.0 06/15/18 23:02 37.2 64 20 122/75 (91) 97 Nasal Cannula 2.0 06/15/18 21:32 63 112/77 (89) 06/15/18 19:20 Room Air 06/15/18 15:02 36.9 63 18 100/64 (76) 95 Lab Results: Results Past 24 Hours Test 06/15/18 14:10 06/15/18 17:06 06/15/18 20:49 06/16/18 05:46 Range/Units Bedside Glucose 87 108 103 118 70-90 mg/dl Test 06/16/18 06:26 06/16/18 12:12 Range/Units Sodium Level 139 136-145 mmol/L Potassium Level 4.1 3.5-5.1 mmol/L Chloride Level 106 98-107 mmol/L Carbon Dioxide Level 28 21-32 mmol/L Anion Gap 5.0 3-11 mmol/L Blood Urea Nitrogen 16 7-18 mg/dl Creatinine 0.78 0.60-1.20 mg/dl Est Creatinine Clear Calc Drug Dose 101.7 ml/min Estimated GFR () 97.8 Estimated GFR (Non- 84.4 BUN/Creatinine Ratio 20.2 10-20 Random Glucose 100 70-99 mg/dl Calcium Level 8.3 8.5-10.1 mg/dl Magnesium Level 2.0 1.8-2.4 mg/dl Bedside Glucose 94 70-90 mg/dl
--- NOTE | 2018-06-16 14:02 | Consultant Recommendations ---
Blow Pit Helper Recommendations Date of Service Jun 16, 2018. Blow Pit Helper Recommendations Following further study of CT scan, in my opinion this patient is best treated nonoperatively with a brace. Either way will likely require a TKA. with pre existing djd.
[2018-06-16 15:07] VITALS: BP 108/65; PULSE 65; TEMP 36.8; O2SAT 90
[2018-06-16] MEDS: MONTELUKAST SOD 10 MG TAB PO SCH (20:47)
[2018-06-16 23:01] VITALS: BP 117/76; PULSE 64; TEMP 37.4; O2SAT 92
[2018-06-17] MEDS: LEVOTHYROXINE 200 MCG TAB PO SCH (06:23)
[2018-06-17 07:14] LABS: HEMATOCRIT 35.2 % (37-47); MEAN CELL VOLUME 95.9 fL (80-100); MEAN CORPUSCULAR HGB CONC 31.3 g/dl (32-36); MEAN PLATELET VOLUME 9.1 fL (7.4-10.4); PLATELET COUNT 209 K/uL (130-400); RED CELL DISTRIBUTION WIDTH CV 15.5 % (11.5-14.5); RED CELL DISTRIBUTION WIDTH SD 54.2 fL (36.4-46.3); WHITE BLOOD COUNT 8.55 K/uL (4.8-10.8)
[2018-06-17 07:22] VITALS: BP 114/68; PULSE 54; TEMP 36.7; O2SAT 97
[2018-06-17 07:56] LABS: CALCIUM 8.3 mg/dl (8.5-10.1); CREATININE 0.71 mg/dl (0.60-1.20); POTASSIUM 4.2 mmol/L (3.5-5.1)
[2018-06-17] MEDS ORDERED: NURSING VERBAL MED ORDER ONE ×3 (08:15→09:15)
[2018-06-17] MEDS: ROSUVASTATIN CALCIUM 10 MG TAB PO SCH (08:49)
[2018-06-17] MEDS: LOSARTAN POTASSIUM 50 MG TAB PO SCH (08:49)
[2018-06-17] MEDS: CITALOPRAM 40 MG TAB PO SCH (08:49)
[2018-06-17] MEDS: CARVEDILOL 6.25 MG TAB PO SCH ×2 (08:52→20:11)
[2018-06-17] MEDS: INSULIN ASPART 100 UNITS/ML 3 ML PEN SC SCH ×4 (08:56→21:00)
[2018-06-17] MEDS: OXYCODONE HCL IR 5 MG TAB (IMMEDIATE RELEASE) PO PRN ×2 (08:57→20:14)
[2018-06-17 08:58] VITALS: BP 120/82; PULSE 59; O2SAT 92
[2018-06-17] MEDS ORDERED: HYALURONATE SODIUM SCH (10:00)
[2018-06-17] MEDS: ACETAMINOPHEN 325 MG TAB PO PRN (10:42)
--- NOTE | 2018-06-17 11:06 | Orthopedic Progress Note ---
Orthopedic Progress Note Date of Service Jun 17, 2018. Subjective Reports: feeling well (Brace in place right LE) Objective calves soft nontender, N/V intact, toes mobile Left knee injected with 3rd Gelsyn injection, pt tolerated well Date Time Temp Pulse Resp B/P (MAP) Pulse Ox O2 Delivery O2 Flow Rate FiO2 06/17/18 08:58 59 16 120/82 (95) 92 Room Air 06/17/18 07:22 36.7 54 18 114/68 (83) 97 Nasal Cannula 2.0 06/17/18 07:20 Room Air 06/16/18 23:50 Room Air 06/16/18 23:01 37.4 64 18 117/76 (90) 92 Nasal Cannula 2.0 06/16/18 15:35 Room Air 06/16/18 15:07 36.8 65 16 108/65 (79) 90 06/16/18 12:02 36.8 57 16 129/81 (97) 90 Room Air Laboratory Results 24 Hours: Test 06/17/18 07:00 Hematocrit 35.2 % Hemoglobin 11.0 g/dL Assessment & Plan Assessment: 57 yo female with nonoperative right tibial plateau fracture and left knee DJD Plan: 1. Med management 2. DVT prophylaxis- begin ASA daily 3. D/C planning- stable from ortho standpoint, ortho to sign off
--- NOTE | 2018-06-17 11:08 | Consultant Recommendations ---
Pumper Gauger Recommendations Date of Service Jun 17, 2018. Pumper Gauger Recommendations Following further study of CT scan, in my opinion this patient is best treated nonoperatively with a brace. Either way will likely require a TKA. with pre existing djd. Nonweightbearing right lower extremity with walker and brace. Unrestricted knee range of motion as tolerated. Frequent ice and elevation for pain and swelling as needed. Follow-up with Dr Contreras ~ 10-14 days, Call [phone] for appt.
[2018-06-17] MEDS: SODIUM CHLORIDE 0.9% 1000ML 1,000 ML IV SCH (12:50)
[2018-06-17] MEDS: ASPIRIN 325 MG ECTAB PO SCH (13:41)
[2018-06-17 15:09] VITALS: BP 142/84; PULSE 58; TEMP 36.8; O2SAT 97
--- NOTE | 2018-06-17 15:42 | Progress Note ---
Internal Med Progress Note Date of Service: Jun 17, 2018. Provider Documentation: SUBJECTIVE: Seen and examined at bedside right knee pain is controlled Denies chest pain, SOB, dizziness No other complaints OBJECTIVE: Vital Signs-as noted below Physical Exam: General Appearance:Obese, no apparent distress Head: normocephalic, Atraumatic Eyes: normal inspection, EOMI, PERRL Neck: supple, Trachea midline Respiratory/Chest: Decreased breath sounds, CTA Cardiovascular: S1, S2, No murmur Abdomen/GI:Soft, Non tender, Bowel sounds present Extremities/Musculoskelatal:normal inspection, no edema, Right knee Brace Neurologic/Psych:AAOX3, grossly no focal neurological deficits Skin: normal color, warm Lab data as noted below. ASSESSMENT & PLAN: Patient is a 57 yr female with PMH HTN, HLD, hypothyroidism, CRISTÓBAL, COPD, obesity hypoventilation syndrome, DM II presented to ER with complaint of right knee pain secondary to a mechanical fall. Right Tibial Plateau Fracture: Right Proximal Fibular head fracture S/P mechanical Fall Right knee CT: Proximal tibial and fibular head fractures as described above. Moderate lipohemarthrosis. Venous Doppler: No evidence of deep venous thrombosis. Management Nonoperatively with a brace per Ortho Pain control Appreciate Orthopedics help Continue knee Brace Nonweightbearing right lower extremity with walker and brace. Unrestricted knee range of motion as tolerated. Frequent ice and elevation for pain and swelling as needed. Needs follow up with Dr Contreras in 10 days HTN Stable continue coreg, losartan hold lasix for now DM II A1c:6.0 hold metformin Continue ISS Monitor BGs Hypothyroidism: Elevated TSH Normal Free T4 continue levothyroxine may need repeat Thyroid function test as outpatient CRISTÓBAL BiPAP QHS COPD H/O Obesity Hypoventilation Syndrome No respiratory complaints continue home inhalers Anxiety: continue citalopram, lorazepam prn HLD continue statin Tobacco Abuse smoking cessation DVT Px: SCDs, Aspirin per Ortho Code Status Full Code Disposition: PT/OT Patient states that she doesn't have a ride home today Vital Signs: Date Time Temp Pulse Resp B/P (MAP) Pulse Ox O2 Delivery O2 Flow Rate FiO2 06/17/18 15:09 36.8 58 142/84 (103) 97 Nasal Cannula 2.0 06/17/18 08:58 59 16 120/82 (95) 92 Room Air 06/17/18 07:22 36.7 54 18 114/68 (83) 97 Nasal Cannula 2.0 06/17/18 07:20 Room Air 06/16/18 23:50 Room Air 06/16/18 23:01 37.4 64 18 117/76 (90) 92 Nasal Cannula 2.0 Lab Results: Results Past 24 Hours Test 06/16/18 16:47 06/16/18 20:24 06/17/18 07:00 06/17/18 08:23 Range/Units Bedside Glucose 114 96 114 70-90 mg/dl White Blood Count 8.55 4.8-10.8 K/uL Red Blood Count 3.67 4.2-5.4 M/uL Hemoglobin 11.0 12.0-16.0 g/dL Hematocrit 35.2 37-47 % Mean Corpuscular Volume 95.9 80-100 fL Mean Corpuscular Hemoglobin 30.0 25-34 pg Mean Corpuscular Hemoglobin Concent 31.3 32-36 g/dl RDW Standard Deviation 54.2 36.4-46.3 fL RDW Coefficient of Variation 15.5 11.5-14.5 % Platelet Count 209 130-400 K/uL Mean Platelet Volume 9.1 7.4-10.4 fL Sodium Level 140 136-145 mmol/L Potassium Level 4.2 3.5-5.1 mmol/L Chloride Level 106 98-107 mmol/L Carbon Dioxide Level 29 21-32 mmol/L Anion Gap 5.0 3-11 mmol/L Blood Urea Nitrogen 14 7-18 mg/dl Creatinine 0.71 0.60-1.20 mg/dl Est Creatinine Clear Calc Drug Dose 111.7 ml/min Estimated GFR () 109.6 Estimated GFR (Non- 94.6 BUN/Creatinine Ratio 20.4 10-20 Random Glucose 105 70-99 mg/dl Calcium Level 8.3 8.5-10.1 mg/dl Thyroid Stimulating Hormone (TSH) 6.760 0.300-4.500 uIu/ml Free Thyroxine 1.19 0.80-1.60 ng/dl Test 06/17/18 12:04 Range/Units Bedside Glucose 86 70-90 mg/dl
[2018-06-17 20:10] VITALS: BP 130/83; PULSE 62; O2SAT 93
[2018-06-17] MEDS: MONTELUKAST SOD 10 MG TAB PO SCH (20:11)
[2018-06-17 23:09] VITALS: BP 129/87; PULSE 61; TEMP 37; O2SAT 97
[2018-06-18] MEDS: LEVOTHYROXINE 200 MCG TAB PO SCH (05:49)
[2018-06-18 07:29] VITALS: BP 118/78; PULSE 57; TEMP 36.8; O2SAT 92
[2018-06-18] MEDS: OXYCODONE HCL IR 5 MG TAB (IMMEDIATE RELEASE) PO PRN (07:36)
[2018-06-18 07:53] VITALS: O2SAT 92
[2018-06-18] MEDS: CARVEDILOL 6.25 MG TAB PO SCH (08:35)
[2018-06-18] MEDS: ASPIRIN 325 MG ECTAB PO SCH (08:35)
[2018-06-18] MEDS: CITALOPRAM 40 MG TAB PO SCH (08:35)
[2018-06-18] MEDS: ROSUVASTATIN CALCIUM 10 MG TAB PO SCH (08:35)
[2018-06-18] MEDS: LOSARTAN POTASSIUM 50 MG TAB PO SCH (08:36)
[2018-06-18] MEDS: INSULIN ASPART 100 UNITS/ML 3 ML PEN SC SCH ×2 (08:41→12:00)
--- NOTE | 2018-06-18 11:58 | Progress Note ---
Internal Med Progress Note Date of Service: Jun 18, 2018. Provider Documentation: SUBJECTIVE: Seen and examined at bedside Right knee pain is controlled Denies chest pain, SOB, dizziness No other complaints Plan to discharge home today OBJECTIVE: Vital Signs-as noted below Physical Exam: General Appearance:Obese, no apparent distress Head: normocephalic, Atraumatic Eyes: normal inspection, EOMI, PERRL Neck: supple, Trachea midline Respiratory/Chest: Decreased breath sounds, CTA Cardiovascular: S1, S2, No murmur Abdomen/GI:Soft, Non tender, Bowel sounds present Extremities/Musculoskelatal:normal inspection, no edema, Right knee Brace Neurologic/Psych:AAOX3, grossly no focal neurological deficits Skin: normal color, warm Lab data as noted below. ASSESSMENT & PLAN: Patient is a 57 yr female with PMH HTN, HLD, hypothyroidism, CRISTÓBAL, COPD, obesity hypoventilation syndrome, DM II presented to ER with complaint of right knee pain secondary to a mechanical fall. Right Tibial Plateau Fracture: Right Proximal Fibular head fracture S/P mechanical Fall Right knee CT: Proximal tibial and fibular head fractures as described above. Moderate lipohemarthrosis. Venous Doppler: No evidence of deep venous thrombosis. Management Nonoperatively with a brace per Ortho Pain control Appreciate Orthopedics help Continue knee Brace Nonweightbearing right lower extremity with walker and brace. Unrestricted knee range of motion as tolerated. Frequent ice and elevation for pain and swelling as needed. Needs follow-up with Dr Contreras in 10-14 days. HTN Stable continue coreg, losartan Resume lasix DM II A1c:6.0 hold metformin Continue ISS Monitor BGs Hypothyroidism: Elevated TSH Normal Free T4 continue levothyroxine may need repeat Thyroid function test as outpatient CRISTÓBAL BiPAP QHS COPD H/O Obesity Hypoventilation Syndrome No respiratory complaints continue home inhalers Anxiety: continue citalopram, lorazepam prn HLD continue statin Tobacco Abuse smoking cessation DVT Px: SCDs, Aspirin per Ortho Code Status Full Code Disposition: Plan to discharge home today Follow up with your PCP Luis Jones PA-C in 1 week Follow up with your Orthopedic Surgeon in 10-14 days. Please call for appointment Seek immediate medical attention if your symptoms reoccur or worsen Vital Signs: Date Time Temp Pulse Resp B/P (MAP) Pulse Ox O2 Delivery O2 Flow Rate FiO2 06/18/18 07:53 92 Room Air 06/18/18 07:38 Room Air 06/18/18 07:29 36.8 57 16 118/78 (91) 92 Room Air 06/18/18 00:00 Room Air 06/17/18 23:09 37.0 61 16 129/87 (101) 97 Nasal Cannula 2.0 06/17/18 20:10 62 130/83 (99) 93 Room Air 06/17/18 20:00 Room Air 06/17/18 15:09 36.8 58 142/84 (103) 97 Nasal Cannula 2.0 Lab Results: Results Past 24 Hours Test 06/17/18 12:04 06/17/18 17:17 06/17/18 20:22 06/18/18 08:06 Range/Units Bedside Glucose 86 96 118 111 70-90 mg/dl
[2018-06-18] MEDS ORDERED: RXC5 PO (12:01)
[2018-06-18] MEDS ORDERED: ASPEC325 PO (12:01)
--- NOTE | 2018-06-18 12:04 | Discharge Summary ---
Discharge Summary Date of Service Jun 18, 2018. Discharge Summary Admission Date: Jun 14, 2018 at 18:17 Discharge Date: Jun 18, 2018 Discharge Disposition: Home with services Principal Diagnosis: Tibial Fracture Procedures: LE CT: 1. Proximal tibial and fibular head fractures as described above. 2. Moderate lipohemarthrosis. LE Ultrasound: No evidence of deep venous thrombosis. Consultations: Orthopedics Pending Studies/Follow-Up: Follow up with your PCP Luis Jones PA-C in 1 week Follow up with your Orthopedic Surgeon in 10-14 days. Please call [phone] for appointment Seek immediate medical attention if your symptoms reoccur or worsen Medication Reconciliation New Medications: Aspirin (Aspirin) 325 Mg Ectab 325 MG PO QAM for 30 Days, #30 EA Oxycodone HCl (Oxycodone HCl) 5 Mg Tab 5 MG PO Q8H PRN for Pain, #8 TAB Continued Medications: Albuterol Sulfate (Proair Respiclick) 108 Mcg/Act Aer 2 PUFF PO Q4H PRN for SOB/Wheezing Carvedilol (Coreg) 12.5 Mg Tab 0.5 TAB PO BID for 90 Days, #90 TAB 1 Refill Citalopram (Citalopram Hydrobromide) 40 Mg Tab 1 TAB PO QAM for 90 Days, #90 TAB 3 Refills Fish Oil (Dent-3) 1 Ea Cap 1 CAP PO DAILY, CAP Furosemide (Lasix) 20 Mg Tab 1 TAB PO DAILY, TAB Levothyroxine Sodium (Levothyroxine Sodium) 200 Mcg Tab 1 TAB PO DAILY Lorazepam (Ativan) 0.5 Mg Tab 0.5 MG PO Q8 PRN for Anxiety, TAB Losartan Potassium (Cozaar) 100 Mg Tab 1 TAB PO DAILY Meloxicam (Mobic) 15 Mg Tab 15 MG PO DAILY, TAB Metformin Hcl (Glucophage) 500 Mg Tab 500 MG PO QAM, TAB Mometasone Furoate-Formoterol (Dulera 200/5 Mcg) 1 Aer Aer 2 PUFFS INH BID for 30 Days, #13 GM 3 Refills Montelukast Sodium (Singulair) 10 Mg Tab 1 TAB PO HS Rosuvastatin Calcium (Crestor) 10 Mg Tab 1 TAB PO DAILY for 30 Days, #30 TAB 5 Refills Umeclidinium Ferris (Incruse Ellipta) 62.5 Mcg/Inh Inh 1 PUFF PO DAILY Zolpidem Tartrate (Zolpidem Tartrate) 10 Mg Tab 1 TAB PO HS PRN for Insomnia Admission Information HPI (per Admitting provider): Pt is 57 y/o F with PMH HTN, HLD, hypothyroidism, CRISTÓBAL, COPD, obesity hypoventilation syndrome, DM II presented to ER with complaint of right knee pain. Patient states was out feeding her dogs this morning around 10 AM and dog jumped up on her and she slipped in mud landing on right knee. Patient states has been unable to bear weight on right leg since has limited ability to move knee secondary to pain. C/0 edema to right knee. History of arthritis bilateral knees-history injections by Dr. Contreras in the past, denies history of prior injury to right knee. Patient denies hitting head. Patient denies any other injury. Denies hip pain or ankle/foot pain, extremity paresthesias.Denies fever/chills, diaphoresis, N/V/D/C, FERNANDEZ, dizziness, syncope, vision changes, neck pain, CP, SOB, orthopnea, palpitations, cough, rhinorrhea, abdominal pain, other extremity edema, rashes, urinary symptoms, weight loss. Physical Exam (per Admitting): General Appearance: no apparent distress, + obese Head: normocephalic, atraumatic Eyes: normal inspection, PERRL, sclerae normal ENT: hearing grossly normal, pharynx normal, + pertinent finding (Mucous membranes moist) Neck: supple, trachea midline Respiratory/Chest: lungs clear, normal breath sounds, no respiratory distress Cardiovascular: no murmur, normal peripheral pulses, + bradycardia (Rate 56) Abdomen/GI: normal bowel sounds, non tender, soft Extremities/Musculoskelatal: + pertinent finding (Normal appearance except for RLE: Right knee with edema, tenderness to palpation entire anterior knee, limited flexion and extension of knee. Distal pulses palpable, sensation to light touch intact, brisk capillary refill) Neurologic/Psych: alert, normal mood/affect, oriented x 3 Skin: warm/dry Hospital Course Patient is a 57 yr female with PMH HTN, HLD, hypothyroidism, CRISTÓBAL, COPD, obesity hypoventilation syndrome, DM II presented to ER with complaint of right knee pain secondary to a mechanical fall. Right Tibial Plateau Fracture: Right Proximal Fibular head fracture S/P mechanical Fall Right knee CT: Proximal tibial and fibular head fractures as described above. Moderate lipohemarthrosis. Venous Doppler: No evidence of deep venous thrombosis. Management Nonoperatively with a brace per Ortho Pain control Appreciate Orthopedics help Continue knee Brace Nonweightbearing right lower extremity with walker and brace. Unrestricted knee range of motion as tolerated. Frequent ice and elevation for pain and swelling as needed. Needs follow-up with Dr Contreras in 10-14 days. HTN Stable continue coreg, losartan Resume lasix DM II A1c:6.0 hold metformin Continue ISS Monitor BGs Hypothyroidism: Elevated TSH Normal Free T4 continue levothyroxine may need repeat Thyroid function test as outpatient CRISTÓBAL BiPAP QHS COPD H/O Obesity Hypoventilation Syndrome No respiratory complaints continue home inhalers Anxiety: continue citalopram, lorazepam prn HLD continue statin Tobacco Abuse smoking cessation DVT Px: SCDs, Aspirin per Ortho Code Status Full Code Disposition: Plan to discharge home today Follow up with your PCP Luis Jones PA-C in 1 week Follow up with your Orthopedic Surgeon in 10-14 days. Please call for appointment Seek immediate medical attention if your symptoms reoccur or worsen Total time spent on discharge = 34 minutes This includes examination of the patient, discharge planning, medication reconciliation, and communication with other providers. Discharge Instructions Discharge Instructions Date of Service Jun 18, 2018. Admission Reason for Admission: Tibial Plateau Fracture, Right Discharge Discharge Diagnosis / Problem: Tibial Fracture Discharge Goals Goal(s): Decrease discomfort, Improve function Activity Recommendations Activity Limitations: per Instructions/Follow-up section Lifting Limitations: until after follow-up appointment Exercise/Sports Limitations: until after follow-up appointment . Instructions / Follow-Up Instructions / Follow-Up Follow up with your PCP Luis Jones PA-C in 1 week Follow up with your Orthopedic Surgeon in 10-14 days. Please call for appointment Seek immediate medical attention if your symptoms reoccur or worsen Current Hospital Diet Patient's current hospital diet: AHA Diet (Heart Healthy), Diabetes Type 2 Diet Discharge Diet Recommended Diet: Diabetes Type 2 Diet Pending Studies Studies pending at discharge: no Laboratory Results Hemoglobin A1c Test 06/15/18 06:55 Range/Units Estimated Average Glucose 126 mg/dl Hemoglobin A1c 6.0 H 4.5-5.6 % Medical Emergencies . Who to Call and When: Medical Emergencies: If at any time you feel your situation is an emergency, please call 911 immediately. . Non-Emergent Contact Non-Emergency issues call your: Primary Care Provider, Surgeon Call Non-Emergent contact if: you have a fever, your pain is not controlled, your pain is worsening, your pain is unusual for you, your pain is concerning you, you have any medication questions Seek immediate medical attention if your symptoms reoccur or worsen . . "Provider Documentation" section prepared by Tristen Smith. . Manager Community Relations Recommendations Manager Community Relations Recommendations: Nonweightbearing right lower extremity with walker and brace. Unrestricted knee range of motion as tolerated. Frequent ice and elevation for pain and swelling as needed. Follow-up with Dr Contreras ~ 10-14 days, Call [phone] for appt. <Electronically signed by Tristen Smith MD> Signed: 06/18/18 [id number] Signed: The status of this report is Signed * If report status is Draft, the document has not been finalized by the responsible provider.
[2018-06-18 12:13] VITALS: BP 118/78; PULSE 57; TEMP 36.8; O2SAT 92
== END 2018-06-18 13:00 | disposition home health service (06) | DRG 563 ==
LOC: C.EDB 14:17 → C.MSN 18:17 → ENRESERV 19:10
PROVIDERS: ADMIT Internal Medicine; ATTEND Internal Medicine
PROC: 0T9B70Z Drainage of Bladder with Drainage Device, Via Natural or Artificial Opening (ICD-10-PCS; principal; 2018-06-14)
PROC: 2W3LX1Z Immobilization of Right Lower Extremity using Splint (ICD-10-PCS; principal; 2018-06-14)
DX: S82.141A Displaced bicondylar fracture of right tibia, initial encounter for closed fracture (principal); E66.2 Morbid (severe) obesity with alveolar hypoventilation; Z68.41 Body mass index [BMI] 40.0-44.9, adult; S82.831A Other fracture of upper and lower end of right fibula, initial encounter for closed fracture; D72.829 Elevated white blood cell count, unspecified; I10 Essential (primary) hypertension; E11.9 Type 2 diabetes mellitus without complications; E03.9 Hypothyroidism, unspecified; J44.9 Chronic obstructive pulmonary disease, unspecified; F41.9 Anxiety disorder, unspecified; E78.5 Hyperlipidemia, unspecified; M17.0 Bilateral primary osteoarthritis of knee; F17.200 Nicotine dependence, unspecified, uncomplicated; W54.1XXA Struck by dog, initial encounter; Y93.K9 Activity, other involving animal care; Y99.8 Other external cause status; Z79.1 Long term (current) use of non-steroidal anti-inflammatories (NSAID); Z79.84 Long term (current) use of oral hypoglycemic drugs; Z79.899 Other long term (current) drug therapy

== ENCOUNTER 2019-04-08 04:46 | Inpatient (IN) ==
--- NOTE | 2019-03-09 15:45 | PAT Medication Instructions ---
Medication Instructions Date of Service March 09, 2019 Home Medications carvedilol 12.5 mg PO QAM citalopram 40 mg PO QAM cyanocobalamin (vitamin B-12) 1,000 mcg PO QAM furosemide [Lasix] 20 mg PO QAM levothyroxine 175 mcg PO Q OTHER DAY levothyroxine 200 mcg PO Q OTHER DAYwn losartan 100 mg PO QAM meloxicam 15 mg PO QAM metformin 500 mg PO QAM mometasone-formoterol [Dulera] 2 puff INHALATION Q12H PRN montelukast [Singulair] 10 mg PO PM omega 8-qld-jnf-fish oil [Fish Oil] 1 cap PO QAM rosuvastatin 10 mg PO QAM tizanidine [Zanaflex] 3 tab PO BID zolpidem [Ambien] 10 mg PO HS ASK your surgeon for instructions meloxicam 15 mg PO QAM STOP taking 2 weeks before surgery (or as soon as possible if surgery is within 2 weeks) omega 4-yoz-tol-fish oil [Fish Oil] 1 cap PO QAM DO NOT take the morning of surgery cyanocobalamin (vitamin B-12) 1,000 mcg PO QAM furosemide [Lasix] 20 mg PO QAM losartan 100 mg PO QAM tizanidine [Zanaflex] 3 tab PO BID Take morning of surgery With a small sip of water, OTHERWISE NOTHING TO EAT OR DRINK AFTER MIDNIGHT: carvedilol 12.5 mg PO QAM citalopram 40 mg PO QAM levothyroxine 175 mcg PO Q OTHER DAY levothyroxine 200 mcg PO Q OTHER DAYwn mometasone-formoterol [Dulera] 2 puff INHALATION Q12H PRN (if needed) rosuvastatin 10 mg PO QAM Take evening before surgery levothyroxine 175 mcg PO Q OTHER DAY levothyroxine 200 mcg PO Q OTHER DAYwn mometasone-formoterol [Dulera] 2 puff INHALATION Q12H PRN (if needed) montelukast [Singulair] 10 mg PO PM tizanidine [Zanaflex] 3 tab PO BID zolpidem [Ambien] 10 mg PO HS Other Notes If you have any questions please call us at [phone] or [phone] or [phone] or [phone]
--- NOTE | 2019-03-10 13:27 | Anesthesiology Consultation ---
Date of Service March 10, 2019 Assessment & Plan (1) Encounter for pre-operative examination: -No intubation records on file Chart Review Chart Review: Acceptable Risk for Surgery and Patient seen in Pre Admission Testing Consults Requested none Teaching & Discussion Pre-Anesthesia Teaching/Discussion Notes: Instructed NPO after midnight before surgery, except medications with 15 cc of water. Medication instructions provided according to the PAT guidelines. History Surgery Operation Date: 04/08/19 07:15 Proposed Procedures p Left Total Knee Arthroplasty - Jeevan Contreras DO Height/Weight Height: 5 ft 5 in Weight: 114 kg Allergies Allergy/AdvReac Type Severity Reaction Status Date / Time No Known Allergies Allergy Verified 03/03/19 09:58 Medications Home Medications Medication Instructions Recorded Confirmed Last Taken carvedilol 12.5 mg PO QAM 03/03/19 03/03/19 Unknown citalopram 40 mg PO QAM 03/03/19 03/03/19 Unknown cyanocobalamin (vitamin B-12) 1,000 mcg PO QAM 03/03/19 03/03/19 Unknown [Vitamin B-12] furosemide [Lasix] 20 mg PO QAM 03/03/19 03/03/19 Unknown levothyroxine 175 mcg PO Q OTHER DAY 03/03/19 03/03/19 Unknown levothyroxine 200 mcg PO Q OTHER DAY 03/03/19 03/03/19 Unknown losartan 100 mg PO QAM 03/03/19 03/03/19 Unknown meloxicam 15 mg PO QAM 03/03/19 03/03/19 Unknown metformin 500 mg PO QAM 03/03/19 03/03/19 Unknown mometasone-formoterol [Dulera] 2 puff INHALATION Q12H PRN 03/03/19 03/03/19 Unknown montelukast [Singulair] 10 mg PO PM 03/03/19 03/03/19 Unknown omega 4-evy-jxu-fish oil [Fish Oil] 1 cap PO QAM 03/03/19 03/03/19 Unknown rosuvastatin 10 mg PO QAM 03/03/19 03/03/19 Unknown tizanidine [Zanaflex] 3 tab PO BID 03/03/19 03/03/19 Unknown zolpidem [Ambien] 10 mg PO HS 05/02/19 05/02/19 Unknown Past Medical History Medical History Anxiety Chronic obstructive pulmonary disease DJD (degenerative joint disease) History of kidney stones Hyperlipidemia Hypertension Hypothyroidism Pre-diabetes Sleep apnea use bipap Exercise / Class Metabolic Activity III < 4 Walking/Shop/Light housework (Helps care for dogs and yard. Goes down into basement to wash laundry. Denies CP. Does not get SOB unless walking up an incline. Resolves when she stops. ) Past Family History Family History Father Family history of diabetes mellitus Brother Family history of diabetes mellitus Past Surgical History Surgical History H/O arthroscopy of left knee x2 History of carpal tunnel release of both wrists Hx of hand surgery Bilateral (2003) Hx of tubal ligation Past Anesthesia History No Hx of Anesthesia Complications and No Family Hx of Anesthesia Complications History of PONV No Hx of PONV (Only after lumbar injections) and No Hx of Motion Sickness (Not since childhood) Social History Smoking Status: Former smoker tobacco type: cigarettes Smoking cigarettes per day: 1-1.5ppd x 40 years Do You Dip or Chew Tobacco: No Smoking End Date: 01/24/2019 Hx Alcohol Use: No Hx Substance Use: No Review of Systems Patient denies chest pain, shortness of breath, reflux, cough, wheezing, palpitations. +BELL (Does not get SOB unless walking up an incline. Resolves when she stops.) +Joint Pain (Both Knees, SI joint) Physical Exam Vital Signs BP: 147/75 P: 59 R: 16 T: 97.9 SPO2: 97% on RA Constitutional + morbidly obese ENMT Mouth: + dentures (Upper set) and + poor dentition (Bottom) Thyromental Distance: < 3.5 Finger Breadths (2.5-3) Mallampati Class: I Neck trachea midline and + thick neck; neck extension not limited Respiratory normal respiratory effort Auscultation: lungs clear to auscultation bilaterally Cardiovascular Rate/Rhythm: regular rate and regular rhythm Heart Sounds: no murmur Vessels: no carotid bruit Neurologic moves all extremities Psychiatric Orientation: alert and oriented x 3 Testing Electrocardiogram Date: 03/10/19 Findings: + SB @ (57) and + no change from (06/14/18) Laboratory Results 03/10/19 13:14 03/10/19 13:14 Blood Type O Negative 03/10/19 13:14 Antibody Screen NEGATIVE 03/10/19 13:14 PT 9.9 Seconds (9.0-12.0) 03/10/19 13:14 INR 1.0 (0.9-1.1) 03/10/19 13:14 APTT 24.9 Seconds (21.0-31.0) 03/10/19 13:14 Hemoglobin A1c 5.9 % (4.5-5.6) H 03/10/19 13:14 Urine Color Yellow 03/10/19 13:14 Urine Appearance Clear (Clear) 03/10/19 13:14 Urine pH 5.5 (4.5-7.5) 03/10/19 13:14 Ur Specific [place] 1.027 (1.000-1.030) 03/10/19 13:14 Urine Protein Negative (Negative) 03/10/19 13:14 Urine Glucose (UA) Negative (Negative) 03/10/19 13:14 Urine Ketones Trace (Negative) H 03/10/19 13:14 Urine Nitrite Negative (Negative) 03/10/19 13:14 Ur Leukocyte Esterase Negative (Negative) 03/10/19 13:14
[2019-03-10 14:27] LABS: Estimated Average Glucose 123 mg/dl; Hemoglobin A1C 5.9 % (4.5-5.6)
[2019-03-10 14:28] LABS: Appearance Urine Clear (Clear); Bilirubin Urine Negative (Negative); Blood Urine Negative (Negative); Color Urine Yellow; Glucose Urine UA Negative (Negative); Ketones Urine Trace (Negative); Leukocyte Esterase Urine Negative (Negative); Nitrite Urine Negative (Negative); Protein Urine Negative (Negative); Specific Gravity Urine 1.027 (1.000-1.030); Urobilinogen Urine Negative (Negative); pH Urine 5.5 (4.5-7.5)
[2019-03-10 14:29] LABS: Basophils # (auto) 0.04 K/uL (0-0.2); Basophils % (auto) 0.5 %; Eosinophils # (auto) 0.19 K/uL (0-0.5); Eosinophils % (auto) 2.2 %; Hematocrit (blood only) 38.8 % (37-47); Hemoglobin 12.9 g/dL (12.0-16.0); Immature Granulocytes # (auto) 0.03 K/uL (0.00-0.02); Immature Granulocytes % (auto) 0.3 %; Lymphocytes # (auto) 2.73 K/uL (1.2-3.4); Lymphocytes % (auto) 31.4 %; Mean Corpuscular Hgb Conc 33.2 g/dL (32-36); Mean Corpuscular Volume 91.7 fL (80-100); Monocytes # (auto) 0.62 K/uL (0.11-0.59); Monocytes % (auto) 7.1 %; Neutrophils # (auto) 5.08 K/uL (1.4-6.5); Neutrophils % (auto) 58.5 %; Platelet Count 283 K/uL (130-400); RDW Coefficient of Variation 13.4 % (11.5-14.5); RDW Standard Deviation 44.6 fL (36.4-46.3); Red Blood Count 4.23 M/uL (4.2-5.4); White Blood Count 8.69 K/uL (4.8-10.8)
[2019-03-10 14:31] LABS: Albumin Level 3.2 gm/dl (3.4-5.0); BUN Creatinine Ratio 30.2 (10-20); Calcium 9.3 mg/dl (8.5-10.1); Creatinine Clr Calc Pharmacy 97.8 ml/min; Est GFR (African American) 95.6; Est GFR (Non-African American) 82.5; Potassium 4.3 mmol/L (3.5-5.1)
[2019-03-10 14:36] LABS: Partial Thromboplastin Ratio 0.9; Partial Thromboplastin Time 24.9 Seconds (21.0-31.0); Prothrombin Time 9.9 Seconds (9.0-12.0)
--- NOTE | 2019-04-06 12:22 | History & Physical Report ---
Date of Service April 06, 2019 Assessment & Plan (1) Osteoarthritis of left knee: Schedule left knee TKA for 04.08.19. All potential risks, benefits, complications, alternatives, and rehab have been discussed with the patient and she wishes to proceed. Plan for ASA 81 mg BID x 4 wks post op. (2) Acquired genu valgum of left knee: History of Present Illness Chief Complaint: left knee pain Primary Care Provider: Luis Jones This is a patient who had been treated conservatively for left knee osteoarthritis for many years. She has failed all conservative managements and is now being set up for a left TKA. Allergies Allergy/AdvReac Type Severity Reaction Status Date / Time No Known Allergies Allergy Verified 03/03/19 09:58 Home Medications Home Medications Medication Instructions Recorded Confirmed Type carvedilol 12.5 mg PO QAM 03/03/19 03/03/19 History citalopram 40 mg PO QAM 03/03/19 03/03/19 History cyanocobalamin (vitamin B-12) 1,000 mcg PO QAM 03/03/19 03/03/19 History [Vitamin B-12] furosemide [Lasix] 20 mg PO QAM 03/03/19 03/03/19 History levothyroxine 175 mcg PO Q OTHER DAY 03/03/19 03/03/19 History levothyroxine 200 mcg PO Q OTHER DAY 03/03/19 03/03/19 History losartan 100 mg PO QAM 03/03/19 03/03/19 History meloxicam 15 mg PO QAM 03/03/19 03/03/19 History metformin 500 mg PO QAM 03/03/19 03/03/19 History mometasone-formoterol [Dulera] 2 puff INHALATION Q12H PRN 03/03/19 03/03/19 History montelukast [Singulair] 10 mg PO PM 03/03/19 03/03/19 History omega 2-aaw-pjb-fish oil [Fish Oil] 1 cap PO QAM 03/03/19 03/03/19 History rosuvastatin 10 mg PO QAM 03/03/19 03/03/19 History tizanidine [Zanaflex] 3 tab PO BID 03/03/19 03/03/19 History zolpidem [Ambien] 10 mg PO HS 03/03/19 03/03/19 History Past Med/Surg History Medical History Anxiety Chronic obstructive pulmonary disease DJD (degenerative joint disease) History of kidney stones Hyperlipidemia Hypertension Hypothyroidism Pre-diabetes Sleep apnea use bipap Surgical History H/O arthroscopy of left knee x2 History of carpal tunnel release of both wrists Hx of hand surgery Bilateral (2003) Hx of tubal ligation Family History Father Family history of diabetes mellitus Brother Family history of diabetes mellitus Social History Preferred Language: Macedonian Communication Ability: Effective Beliefs That Will Affect Care: None Current Living Situation: Alone Other Information That Helps Us Care for You: No Feels Safe at Home: Yes Safety Concerns: Feels Safe At This Time Smoking Status: Former smoker Tobacco Type: cigarettes Cigarettes Per Day: 1- 1.5ppd x 40 years Do You Dip or Chew Tobacco: No Smoking End Date: 01/24/2019 Second Hand Exposure: No Hx Alcohol Use: No Hx Substance Use: No Physical Exam Constitutional: well developed and well nourished; no acute distress ENMT: external ear and nose normal, oropharynx normal Neck: trachea midline, no thyromegaly Respiratory: normal respiratory effort, lungs clear to auscultation Cardiovascular: Rate/Rhythm: regular rate and regular rhythm Gastrointestinal (Abdomen): normal bowel sounds, soft, nontender, no hepatosplenomegaly Musculoskeletal: Knee: + effusion (mild left knee), + knee ROM with crepitation, + joint line tenderness (left knee: medial and lateral joint line tenderness) and + valgus alignment (left knee); no skin erythema and no ecchymosis Skin: no rashes, warm and dry Neurologic: normal touch/pain/proprioception Psychiatric: A+Ox3, euthymic affect Lymphatic: no cervical or axillary lymphadenopathy
--- OUTSIDE RECORDS SUMMARY | 2019-04-08 04:52 | External Medical Summary | Continuity of Care Document ---
:1960 Author Name Sabino Marques Address Unavailable Unavailable , Care Team Providers Name Role Phone Harrison DO Unavailable [email or web address] [email or web address] Assessed Problems:Infection of prosthetic knee joint Problems Infection of prosthetic knee joint (996.66) (T84.59XA) Allergies and Adverse Reactions No Known Drug Allergies (Allergy) Medications Citalopram Hydrobromide 40 MG Oral Tablet; TAKE 1 TABLET CEDRICK LY. Start: 13-May-2017 Quantity: 30 Refills: 5 Carvedilol 3.125 MG Oral Tablet; TAKE 1 TABLET TWICE DAILY W ITH MEALS. Start: 13-May-2017 Quantity: 180 Refills: 3 Cyclobenzaprine HCl - 10 MG Oral Tablet; TAKE 1 TABLET 3 blanca es daily Start: 13-May-2017 Quantity: 30 Refills: 3 Furosemide 20 MG Oral Tablet; Take 1 tablet daily PO as need ed for swelling. Start: 13-May-2017 Refills: 0 Levothyroxine Sodium 175 MCG Oral Tablet ; PO every other day alternates with 200mcg dose. Start: 13-May-2017 Refills: 0 Levothyroxine Sodium 200 MCG Oral Tablet ; PO, every other day alternates with 175mcg. Start: 13-May-2017 Refills: 0 LORazepam 0.5 MG Oral Tablet; TAKE 1 TABLET EVERY 6 HOURS NEEDED. Start: 13-May-2017 Quantity: 20 Refills: 0 Losartan Potassium 100 MG Oral Tablet; TAKE 1 TABLET DAILY. Start: 13-May-2017 Quantity: 30 Refills: 11 metFORMIN HCl - 500 MG Oral Tablet; Take 1 tablet daily Start: 13-May-2017 Refills: 2 Tylenol Extra Strength 500 MG Oral Tablet; TAKE 2 TABLET Rosa ry 8 hours Start: 13-May-2017 Refills: 0 Ceftriaxone Sodium 1 GM Injection Soluti on Reconstituted; 2 grams daily for 42 days. Start: 13-May-2017 Refills: 0 Vicodin HP 10-300 MG Oral Tablet Refills: 0 Procedures Procedures not documented Immunizations Immunizations not documented Interventions Discussion/SummaryAt this time she will continue her daptomycin until completion. She is due to stop tomorrow. Her PICC line can be removed at that time. She does have an orthopedic evaluation scheduled for next week. Based on their evaluation she may be eligible for chronic suppression therapy. Recommendation would befor doxycycline 100 milligrams twice daily with food. will await surgery follow up next week if in agreement with suppression, this can be started. I suspect her sed rate is elevated secondary to her reaction to ceftriaxone. She does not have any clinical signs of ongoing infection on examination today. She would prefer that all phone calls from her home care company be called to her cell phone that #[phone] Plan of Treatment Planned Observations Planned Goals not documented Results No Known Results Results not documented Encounters Appointment; Priyanka Harrison DO 13-May-2017 11:00 Encounter Diagnosis: Problem not documented
[2019-04-08] MEDS ORDERED: GABAPENTIN 300 MG x 2 PO SCH (06:00)
[2019-04-08] MEDS ORDERED: ROPIVACAINE 0.5% HCL/PF 150 MG, BUPIVACAINE 0.5% MPF 30 ML, EPINEPHrine 30MG/30ML (OR U... INFIL SCH (06:00)
[2019-04-08] MEDS ORDERED: LR 500ML BOLUS, THEN 15ML/HR IV SCH (06:00)
[2019-04-08] MEDS ORDERED: CEFAZOLIN 3000MG 65 ML IV SCH (06:00)
[2019-04-08] MEDS ORDERED: CeleBREX 200 MG CAP PO SCH (06:00)
[2019-04-08] MEDS ORDERED: dexAMETHasone 4 MG TAB PO SCH (06:00)
[2019-04-08] MEDS ORDERED: METOCLOPRAMIDE HCL 10 MG TABLET PO SCH (06:00)
[2019-04-08] MEDS ORDERED: ACETAMINOPHEN 500 MG TAB PO SCH (06:00)
[2019-04-08] MEDS ORDERED: OXYCODONE HCL 10 MG TABCR (OXYCONTIN) PO SCH (06:00)
[2019-04-08] MEDS ORDERED: FAMOTIDINE 20 MG TAB PO SCH (06:00)
[2019-04-08] MEDS ORDERED: fentaNYL citrate 100 MCG/2 ML VIAL ONE (06:52)
[2019-04-08] MEDS ORDERED: MIDAZOLAM HCL 1 MG/ML 2ML VIAL ONE (06:52)
[2019-04-08] MEDS ORDERED: POVIDONE-IODINE OP SOLN 30 ML BTL ONE (06:57)
[2019-04-08] MEDS ORDERED: ORTHO JOINT ANESTHETIC ONE (06:57)
[2019-04-08] MEDS ORDERED: BACITRACIN INJ 50,000 UNIT VIAL ONE (06:58)
--- NOTE | 2019-04-08 07:36 | History & Physical Bridge Note ---
Date of Service April 08, 2019 History & Physical Bridge Note I have examined the patient, reviewed the History & Physical and in the interval since the performance of the History & Physical I have noted the following changes of clinical significance: no changes noted
[2019-04-08] MEDS ORDERED: TRANEXAMIC ACID 1,000 MG in 0.9 % SODIUM CHLORIDE 100 ML IV SCH ×3 (08:00→17:00)
[2019-04-08] MEDS ORDERED: ONDANSETRON INJ 2 MG/ML 2 ML VIAL ONE (08:06)
[2019-04-08] MEDS ORDERED: PROPOFOL IV EMULSION 10 MG/ML 20 ML VIAL IV ONE ×2 (08:06→09:56)
[2019-04-08] MEDS ORDERED: LIDOCAINE HCL 2% 2 ML VIAL/AMP(20MG/ML) INFIL ONE (08:06)
[2019-04-08] MEDS ORDERED: ATROPINE SULFATE 0.1 MG/ML 10ML SYR IV PRN (08:25)
[2019-04-08] MEDS ORDERED: fentaNYL citrate 100 MCG/2 ML VIAL IV PRN (08:25)
[2019-04-08] MEDS ORDERED: ePHEDrine sulfate 50 MG/ML AMP IV PRN (08:25)
[2019-04-08] MEDS ORDERED: ONDANSETRON INJ 2 MG/ML 2 ML VIAL IV PRN ×2 (08:25→10:56)
--- NOTE | 2019-04-08 10:20 | Post Operative Brief Note ---
Immediate Post Op Note v1 Date of Surgery April 08, 2019 Pre & Post Diagnosis Operation Date: 04/08/19 07:15 Pre-Op Diagnosis: Left knee osteoarthritis, Left Knee degenerative joint disease, left genu valgum, BMI greater than 40 Post-Op Diagnosis: Left knee osteoarthritis, Left Knee degenerative joint disease, left genu valgum Procedure Operation Date: 04/08/19 07:15 Actual Procedures p 1. Left Total Knee Arthroplasty(Left). 2. Increased technical difficulty due to BMI greater than 40- Jeevan Contreras DO Surgeon Jeevan Contreras DO Portable Track Crew Chief Drake Jiménez PA-C Estimated Blood Loss 25 Findings Consistent with Post-Op Diagnosis Specimens Bone and tissue left knee Drains Hemovac Drain (10 fr dual) Anesthesia Type MAC Spinal Regional Complications none Disposition Accompanied Patient To Recovery: No Disposition: Recovery Room Overlapping Procedure I was present for: the critical portions of procedure. I was immediately available: during the entire case.
[2019-04-08] MEDS ORDERED: OXYCODONE HCL IR 5 MG TAB (IMMEDIATE RELEASE) PO PRN (10:56)
[2019-04-08] MEDS ORDERED: METOCLOPRAMIDE HCL INJ 5 MG/ML 2 ML VIAL IV PRN (10:56)
[2019-04-08] MEDS ORDERED: NALOXONE HCL 0.4 MG/1 ML VIAL/CARP IV PRN (10:56)
[2019-04-08] MEDS ORDERED: BISACODYL 10 MG SUPP PR PRN (10:56)
[2019-04-08] MEDS ORDERED: MAGNESIUM HYDROXIDE SUSP 30 ML UDC PO PRN (10:56)
[2019-04-08] MEDS ORDERED: HYDROmorphone INJ 0.5 MG/0.5 ML SYR IV PRN (11:01)
--- NOTE | 2019-04-08 11:24 | XRay Report ---
LEFT KNEE 2 VIEWS History: Left total knee arthroplasty. Degenerative arthritis. Postop. FINDINGS: The patient is status post a left total knee arthroplasty. The hardware is intact. No fract ure or dislocation. Skin xander are in place. IMPRESSION: Left total knee arthroplasty. No evidence for hardware complication. Electronically signed by: Florin Schafer M.D. 04/08/2019 11:23 AM
--- NOTE | 2019-04-08 11:26 | Anesthesiology Progress Note ---
Date of Service April 08, 2019 Anesthesia Post Procedure Vital Signs Vital Signs: Temp Pulse Pulse Pulse Resp BP BP 04/08/19 11:21 36.3 C L 04/08/19 11:20 62 14 98/64 L 04/08/19 11:15 62 14 119/82 04/08/19 11:10 62 14 04/08/19 11:05 61 17 109/74 04/08/19 11:00 64 12 120/81 04/08/19 10:55 65 14 127/79 04/08/19 10:50 65 14 132/84 04/08/19 10:45 65 14 121/79 04/08/19 10:42 69 12 04/08/19 10:41 73 14 126/67 04/08/19 10:39 36.3 C L 69 68 15 144/81 H 144/81 H 04/08/19 05:18 37 C 72 18 156/95 H Pulse Ox 04/08/19 11:21 95 04/08/19 11:20 96 04/08/19 11:15 95 04/08/19 11:10 95 04/08/19 11:05 96 04/08/19 11:00 94 04/08/19 10:55 95 04/08/19 10:50 95 04/08/19 10:45 96 04/08/19 10:42 94 04/08/19 10:41 95 04/08/19 10:39 92 04/08/19 05:18 95 Pain Intensity Left Knee: Pain Intensity: 0 Transfer of Care Handoff Completed per policy Notes Mental Status: alert / awake / arousable Patient Amnestic to Procedure: Yes Nausea / Vomiting: adequately controlled Pain: adequately controlled Airway Patency, RR, SpO2: stable & adequate BP & HR: stable & adequate Hydration State: stable & adequate Neuraxial Anesthesia: was administered and sensory block is resolving Anesthetic Complications: no major complications apparent
[2019-04-08] MEDS: SODIUM CHLORIDE 0.9% 1000ML 1,000 ML IV SCH ×2 (13:22→22:06)
[2019-04-08] MEDS: ACETAMINOPHEN 500 MG TAB PO SCH ×2 (13:22→22:00)
[2019-04-08] MEDS: KETOROLAC TROMETHAMINE 15 MG/ML VIAL IV SCH ×3 (13:23→22:00)
[2019-04-08] MEDS ORDERED: LEVOTHYROXINE SODIUM 175 MCG TABLET PO SCH (14:00)
[2019-04-08] MEDS ORDERED: CALCIUM CARBONATE 500 MG CHEWABLE TAB PO PRN (15:20)
[2019-04-08] MEDS: CEFAZOLIN 2000MG 2,000 MG/15 ML SYR IV SCH ×2 (15:37→23:38)
--- NOTE | 2019-04-08 16:57 | Hospitalist Consultation ---
Date of Consultation April 08, 2019 Assessment & Plan (1) DM type 2 (diabetes mellitus, type 2): Patient is on a caloric restricted diet and typically takes metformin. Will add insulin sliding scale and follow her glucose (2) HTN (hypertension): It was confirmed patient is only on one time a day carvedilol but she also takes losartan in the evening and Lasix 20 (3) Hypothyroidism: She is on alternating doses of Synthroid 175 and 200 these will be maintained (4) COPD (chronic obstructive pulmonary disease): Patient is on Singulair therapy no inhalers at this time will have PRN duo nebs if needed (5) DVT prophylaxis: bid aspirin History of Present Illness Attending Physician: Jeevan Contreras DO History of Present Illness Patient is seen in the postoperative state after total knee arthroplasty on the left. Reportedly she no conservative measures. She is without complaints or problems at the time of my evaluation except for some heartburn for which she requested Tums. Patient meds were reviewed. Allergies Allergy/AdvReac Type Severity Reaction Status Date / Time No Known Allergies Allergy Verified 04/08/19 05:25 Home Medications Home Medications Medication Instructions Recorded Confirmed Type carvedilol 12.5 mg PO QAM 03/03/19 04/08/19 History citalopram 40 mg PO QAM 03/03/19 04/08/19 History cyanocobalamin (vitamin B-12) 1,000 mcg PO QAM 03/03/19 04/08/19 History [Vitamin B-12] furosemide [Lasix] 20 mg PO QAM 03/03/19 04/08/19 History levothyroxine 175 mcg PO Q OTHER DAY 03/03/19 04/08/19 History levothyroxine 200 mcg PO Q OTHER DAY 03/03/19 04/08/19 History losartan 100 mg PO QAM 03/03/19 04/08/19 History meloxicam 15 mg PO QAM 03/03/19 04/08/19 History metformin 500 mg PO QAM 03/03/19 04/08/19 History mometasone-formoterol [Dulera] 2 puff INHALATION Q12H PRN 03/03/19 04/08/19 History montelukast [Singulair] 10 mg PO PM 03/03/19 04/08/19 History omega 9-lan-ejt-fish oil [Fish Oil] 1 cap PO QAM 03/03/19 04/08/19 History rosuvastatin 10 mg PO QAM 03/03/19 04/08/19 History tizanidine [Zanaflex] 3 tab PO BID 03/03/19 04/08/19 History zolpidem [Ambien] 10 mg PO HS 03/03/19 04/08/19 History Patient History Family History Father Family history of diabetes mellitus Brother Family history of diabetes mellitus Social History Preferred Language: [place] Communication Ability: Effective Beliefs That Will Affect Care: None Current Living Situation: Alone Other Information That Helps Us Care for You: No Feels Safe at Home: Yes Safety Concerns: Feels Safe At This Time Smoking Status: Former smoker Tobacco Type: cigarettes Cigarettes Per Day: 1- 1.5ppd x 40 years Do You Dip or Chew Tobacco: No Smoking End Date: 01/24/2019 Second Hand Exposure: No Hx Alcohol Use: No Hx Substance Use: No Review of Systems Review of Systems: ROS: well nourished well developed. No double vision blurry vision No problems with speech or swallowing No palpitations, chest pain or pressure No Wheezing or breathing issues No abdominal pain nausea vomiting does complain of some heartburn No burning urine urine frequency or changes in color Postoperative knee pain Hemovac is in place No skin rashes or oral lesions No unusual bruising or bleeding No focused back pain or numbness or loss of strength No changes in memory or confusion Physical Exam Physical Exam: The patient appeared well nourished and normally developed. Vital signs as documented. Head exam is unremarkable. normocephalic, atraumatic Neck is without jugular venous distension, thyromegaly, or lymphademopathy Lungs are clear to auscultation and percussion. Cardiac exam reveals Rhythm is regular. First and second heart sounds normal. Abdominal exam reveals normal bowel sounds, no masses, no organomegaly Extremities are with intact distal sensation capillary refill Neurologic exam is A&Ox3, no focal deficits of upper extremities and cranial nerves Psychologically seems neither anxious or depressed Skin is warm / Dry area that was bandage was not tested are seen s Results & Data Vital Signs (Past 12 Hours) Vital Signs Temp Pulse Pulse Pulse Pulse Resp BP 04/08/19 15:09 36.6 C 58 L 16 04/08/19 14:39 36.6 C 56 L 18 04/08/19 13:46 36.5 C 64 18 04/08/19 12:49 64 18 04/08/19 12:10 36.6 C 64 18 04/08/19 11:45 36.6 C 60 14 04/08/19 11:30 62 14 101/68 04/08/19 11:25 64 13 112/74 04/08/19 11:21 36.3 C L 04/08/19 11:20 62 14 98/64 L 04/08/19 11:15 62 14 119/82 04/08/19 11:10 62 14 04/08/19 11:05 61 17 109/74 04/08/19 11:00 64 12 120/81 04/08/19 10:55 65 14 127/79 04/08/19 10:50 65 14 132/84 04/08/19 10:45 65 14 121/79 04/08/19 10:42 69 12 04/08/19 10:41 73 14 126/67 04/08/19 10:39 36.3 C L 69 68 15 144/81 H 04/08/19 05:18 37 C 72 18 BP BP Pulse Ox 04/08/19 15:09 121/75 97 04/08/19 14:39 95/61 L 97 04/08/19 13:46 100/57 L 91 04/08/19 12:49 111/77 04/08/19 12:10 107/65 97 04/08/19 11:45 112/75 95 04/08/19 11:30 95 04/08/19 11:25 96 04/08/19 11:21 95 04/08/19 11:20 96 04/08/19 11:15 95 04/08/19 11:10 95 04/08/19 11:05 96 04/08/19 11:00 94 04/08/19 10:55 95 04/08/19 10:50 95 04/08/19 10:45 96 04/08/19 10:42 94 04/08/19 10:41 95 04/08/19 10:39 144/81 H 92 04/08/19 05:18 156/95 H 95
[2019-04-08] MEDS ORDERED: DEXTROSE 50% 50 ML SYRINGE IV PRN (16:58)
[2019-04-08] MEDS ORDERED: GLUCOSE 40% GEL 15 GM TUBE PO PRN (16:58)
[2019-04-08] MEDS ORDERED: GLUCAGON FOR INJ 1 MG VIAL SQ PRN (16:58)
[2019-04-08] MEDS ORDERED: ALBUT/IPRATROP 3MG/0.5MG NEB 3 ML VIAL NEB PRN (16:58)
[2019-04-08] MEDS ORDERED: GLUCOSE 10 TABS/TUBE PO PRN (16:58)
[2019-04-08] MEDS ORDERED: CARBOHYDRATES FOR HYPOGLYCEMIA PO PRN (16:58)
[2019-04-08] MEDS: DOCUSATE SODIUM 100 MG CAP PO SCH (20:16)
[2019-04-08] MEDS: ASPIRIN 81 MG ECTAB PO SCH (20:17)
[2019-04-08] MEDS: TIZANIDINE HCL 4 MG TABLET PO SCH (20:19)
[2019-04-08] MEDS ORDERED: SENNA 8.6 MG TAB PO SCH (21:00)
[2019-04-08] MEDS ORDERED: MONTELUKAST SODIUM 10 MG TABLET PO SCH (21:00)
[2019-04-08] MEDS ORDERED: ZOLPIDEM TARTRATE 10 MG TAB PO SCH (21:00)
[2019-04-08] MEDS: INSULIN ASPART 100 UNITS/ML 3 ML PEN SC SCH (22:26)
--- NOTE | 2019-04-08 22:27 | Operative Report ---
DATE OF OPERATION: 04/08/2019 DATE OF PROCEDURE: 04/08/2019 PREOPERATIVE DIAGNOSES: 1. Left knee degenerative joint disease. 2. Left knee osteoarthritis. 3. Genu valgum of knee. 4. Body mass index over 40. POSTOPERATIVE DIAGNOSES: 1. Left knee degenerative joint disease. 2. Left knee osteoarthritis. 3. Genu valgum of knee. 4. Body mass index over 40. PROCEDURE: 1. Left total knee arthroplasty using a [employer] II MRI matched knee size 4 femur, size 3 tibia, 15 mm constrained polyethylene 32 mm patella. 2. Increased level of technical difficulty due to body mass index over 40. SURGEON: Jeevan Contreras DO CARD CHECKER: Drake Jiménez PA-C who was present for patient positioning, sterile prep and drape, management of retractors and instruments. He was present through the critical portions of the case including wound closure, application of sterile dressing and transport of the patient to recovery. ANESTHESIA: Spinal. Monitored anesthesia care with adductor canal block and intra-articular local with sedation. SPECIMENS: Bone and tissue left knee. DRAINS: Hemovac x1. COMPLICATIONS: None. BLOOD LOSS: 25 mL. PERTINENT HISTORY: This is a 58-year-old woman with progressive chronic and worsening left knee pain and deformity. This has been ongoing for the last several years. She had attempted and failed conservative management including activity modification, physician directed home exercises, physical therapy, rest, use of an assistive device, intraarticular, viscosupplementation, oral and topical anti-inflammatories. Radiographs demonstrate complete loss of joint space laterally with marginal osteophytes, subchondral sclerosis and subchondral cysts. The patient was then scheduled for surgery as indicated. All potential risks, benefits, complications, alternatives, rehab, potential for incomplete relief of symptoms, need for further surgery, DVT, PE, , persistent pain, swelling, scarring, weakness, neurovascular injury, wound complications, hardware failure, nonunion, malunion and need for revision surgery were discussed with the patient. The patient decided to proceed with the procedure as indicated. PROCEDURE: The patient was taken to the Operative Suite and placed supine on the operating table after spinal epidural was initiated. Next, tourniquet was placed high on the left thigh over cast padding and the patient was sedated. The left lower extremity was then sterilely prepped and draped in the usual fashion. It was elevated and exsanguinated with an Esmarch bandage and tourniquet inflated to 350 mmHg. Next, a 10-blade scalpel incision was made along the anterior midline of the left knee with incision deep through the subcutaneous tissue. Meticulous hemostasis was utilized with electrocautery. Full thickness skin flaps were developed both medially and laterally and 10-blade scalpel was used to make a median parapatellar incision in the extensor. The patella was everted and soft tissue releases were performed. The medial collateral was noted to be slightly tight so this was partially released using pie-crusting technique and the Melara elevator was placed from the posterior aspect of the capsule releasing any contracture. Next, the patella was everted and resurfaced using sagittal saw and orthogonal cuts. After caliper measured 28 mm, residual patella was approximately 15 mm and 32 mm button trial was placed and then drilled. Next, the appropriate retractors were placed and the femoral patient matched cutting block was pinned to the distal aspect of the femur. The distal femoral cut was made and pinned with pins and the distal femoral cutting guide was removed. The 4-in-1 cutting block was then pinned in place and anterior, posterior, anterior chamfer, and posterior chamfer cuts were made. Block and bone fragments were then removed followed by exposure of the proximal tibia. Sharp Hohmann was used to place just posterior to the tibia to protract it. Medial and lateral sharp Hohmann's were placed to protect the soft tissue and the tibial cutting block was then pinned in place. Tibial alignment sachi was utilized to confirm alignment and the proximal tibia was then cut made with sagittal saw. Fragment was removed. The Size 3 tibial trial was pinned in place and circumferential proximal release was performed with electrocautery around the proximal tibia. Next, the femoral trial was placed within appropriate medial and lateral alignment and then the cutting block was then put into place. It was reamed and box cut was performed. Excess debris was removed from the femoral notch. The insert was placed into the distal aspect of the femur. Trial poly Size 15 mm constrained was placed in the proximal tibia. The knee was reduced. Trial poly Size 32 mm was placed in the patella. The knee was reduced. Excellent alignment and range of motion was achieved with correction of the genu varum and flexion contracture was achieved. Of note, +2 distal femoral cut was performed as a result of his flexion contracture prior to placement of the 4-in-1 cutting block. Next, all components were removed. The Orthomix was injected into the posterior capsule and anterior aspect of the capsule. Next, the wound was lavaged with pulsatile lavage and all surfaces were suctioned and dried. Palacos-G cement was placed in the distal femur, proximal tibia, patella, and then a small amount was placed in the canal of the tibia. All implants were impacted into place in a stable fashion. Excess cement was removed from the joint. The patellar button was cemented and clamped in place. After sufficient drying time elapsed a 10-[place] double lumen Hemovac drain was placed in the anterolateral aspect of the knee. The extensor mechanism was closed using interrupted #1 Vicryl. The dermis was closed using buried interrupted 2-0 Vicryl. The skin was closed with skin xander. Sterile compressive dressing from the toes to the groin was applied. The tourniquet was released. There was noted to be significant soft tissue due to the patient's large body mass index over 40. Extensive and extended dissection was necessary to the patient's increased body mass. This increased level of technical difficulty with deep dissection down to the level of the fascia, the joint capsule and the extensor of the left knee. The patient was awakened and taken to the Recovery Room in stable condition. I attest to the content of the Intraoperative Record and any orders documented therein. Any exceptions are noted below. MTDD
[2019-04-09] MEDS: KETOROLAC TROMETHAMINE 15 MG/ML VIAL IV SCH (05:40)
[2019-04-09] MEDS: ACETAMINOPHEN 500 MG TAB PO SCH ×2 (05:40→13:26)
[2019-04-09 06:16] LABS: Hematocrit (blood only) 31.9 % (37-47); Hemoglobin 10.2 g/dL (12.0-16.0); Mean Corpuscular Volume 91.4 fL (80-100); Mean Platelet Volume 8.8 fL (7.4-10.4); Platelet Count 316 K/uL (130-400); RDW Coefficient of Variation 13.7 % (11.5-14.5); Red Blood Count 3.49 M/uL (4.2-5.4); White Blood Count 13.93 K/uL (4.8-10.8)
[2019-04-09] MEDS ORDERED: LEVOTHYROXINE SODIUM 200 MCG TABLET PO SCH (06:30)
[2019-04-09 06:41] LABS: Estimated Average Glucose 137 mg/dl; Hemoglobin A1C 6.4 % (4.5-5.6)
[2019-04-09 06:42] LABS: BUN Creatinine Ratio 28.1 (10-20); Calcium 8.8 mg/dl (8.5-10.1); Creatinine Clr Calc Pharmacy 82.1 ml/min; Est GFR (African American) 77.5; Est GFR (Non-African American) 66.9; Potassium 4.4 mmol/L (3.5-5.1)
[2019-04-09] MEDS: ASPIRIN 81 MG ECTAB PO SCH (08:59)
[2019-04-09] MEDS ORDERED: CeleBREX 200 MG CAP PO SCH (09:00)
[2019-04-09] MEDS ORDERED: CARVEDILOL 12.5 MG TAB PO SCH (09:00)
[2019-04-09] MEDS ORDERED: OMEGA-3 (PURIFIED FISH OIL) 1 GM CAP PO SCH (09:00)
[2019-04-09] MEDS ORDERED: ROSUVASTATIN CALCIUM 10 MG TAB PO SCH (09:00)
[2019-04-09] MEDS ORDERED: MULTIVITAMIN TAB PO SCH (09:00)
[2019-04-09] MEDS ORDERED: CYANOCOBALAMIN 500 MCG TABLET (VITAMIN B-12) PO SCH (09:00)
[2019-04-09] MEDS ORDERED: LOSARTAN POTASSIUM 50 MG TAB PO SCH (09:00)
[2019-04-09] MEDS ORDERED: CITALOPRAM 40 MG TAB PO SCH (09:00)
[2019-04-09] MEDS ORDERED: FUROSEMIDE 20 MG TAB PO SCH (09:00)
[2019-04-09] MEDS: DOCUSATE SODIUM 100 MG CAP PO SCH (09:01)
[2019-04-09] MEDS: TIZANIDINE HCL 4 MG TABLET PO SCH (09:03)
[2019-04-09] MEDS: INSULIN ASPART 100 UNITS/ML 3 ML PEN SC SCH ×2 (09:09→12:53)
--- NOTE | 2019-04-09 09:23 | Orthopedic Progress Note ---
Date of Service April 09, 2019 Assessment & Plan (1) Osteoarthritis of left knee: POD #1 s/p left TKA PT/OT Pain control with Dilaudid, Oxy IR, Tylenol ASA 81 mg BID for DVT prophylaxis, HOANG chauhan. D/C planning--home today. Subjective Left knee is doing well. Pain is controlled today. States it feels a little stiff this AM. Denies CP, SOB, LH. Has not had PT yet. Physical Exam Constitutional: WD/WN, vitals as above no acute distress ENMT: external ear and nose normal, oropharynx normal Neck: trachea midline, no thyromegaly Respiratory: normal respiratory effort, lungs clear to auscultation Cardiovascular: Rate/Rhythm: regular rate and regular rhythm Gastrointestinal (Abdomen): normal bowel sounds, soft, nontender, no hepatosplenomegaly Musculoskeletal: Knee: + surgical incision (left knee: REFUGIO bandage in place. Silverlon dressing below. Hemovac in place) and + surgical drain present (Left knee: hemovac drained 110 cc. ); knee normal to inspection, no deformity, no effusion (mild left knee), no skin erythema, no ecchymosis, no crepitation with knee ROM, no valgus alignment (left knee) and no varus alignment Skin: no rashes, warm and dry Neurologic: normal touch/pain/proprioception Psychiatric: A+Ox3, euthymic affect Lymphatic: no cervical or axillary lymphadenopathy Results & Data Vital Signs (Past 12 Hours) Vital Signs Temp Pulse Pulse Pulse Resp BP BP 04/09/19 08:08 36.5 C 55 L 14 121/71 04/09/19 03:03 36.6 C 52 L 16 104/69 04/08/19 23:35 50 L 04/08/19 23:10 36.6 C 46 L 16 95/60 L Pulse Ox 04/09/19 08:08 93 04/09/19 03:03 98 04/08/19 23:35 04/08/19 23:10 98
--- NOTE | 2019-04-09 11:29 | Anesthesiology Progress Note ---
Date of Service April 09, 2019 Anesthesia Post Procedure Vital Signs Vital Signs: Temp Pulse Pulse Pulse Pulse Resp BP 04/09/19 10:21 36.5 C 55 L 14 04/09/19 08:08 36.5 C 55 L 14 04/09/19 03:03 36.6 C 52 L 16 04/08/19 23:35 50 L 04/08/19 23:10 36.6 C 46 L 16 04/08/19 20:17 36.7 C 60 16 04/08/19 15:09 36.6 C 58 L 16 04/08/19 14:39 36.6 C 56 L 18 04/08/19 13:46 36.5 C 64 18 04/08/19 12:49 64 18 04/08/19 12:10 36.6 C 64 18 04/08/19 11:45 36.6 C 60 14 04/08/19 11:30 62 14 101/68 BP BP Pulse Ox 04/09/19 10:21 121/71 93 04/09/19 08:08 121/71 93 04/09/19 03:03 104/69 98 04/08/19 23:35 04/08/19 23:10 95/60 L 98 04/08/19 20:17 123/70 93 04/08/19 15:09 121/75 97 04/08/19 14:39 95/61 L 97 04/08/19 13:46 100/57 L 91 04/08/19 12:49 111/77 04/08/19 12:10 107/65 97 04/08/19 11:45 112/75 95 04/08/19 11:30 95 Pain Intensity Left Knee: Pain Intensity: 5 Notes Mental Status: alert / awake / arousable and participated in evaluation Nausea / Vomiting: adequately controlled Pain: adequately controlled Airway Patency, RR, SpO2: stable & adequate BP & HR: stable & adequate Hydration State: stable & adequate Neuraxial Anesthesia: was administered and sensory block resolved Anesthetic Complications: no major complications apparent and Pt Satisfied with anesthetic care
--- NOTE | 2019-04-09 15:02 | Hospitalist Progress Note ---
Date of Service April 09, 2019 Assessment & Plan (1) Osteoarthritis of left knee: - S/p left total knee arthroplasty on 04/08/19; POD#1. - Pain control per primary team. - DVT ppx: Aspirin 81 mg BID. - PT/OT -- discharge to home. (2) DM type 2 (diabetes mellitus, type 2): - Hemoglobin A1C was 6.4. - SSI as inpatient. (3) HTN (hypertension): - Continue Coreg, Losartan and Lasix. (4) Hypothyroidism: - Continue home Synthroid. - Most recent TSH was 6.7 in June 2018 -- recommend outpt follow up. (5) COPD (chronic obstructive pulmonary disease): - Continue home Singulair. (6) DVT prophylaxis: - Aspirin BID. Dispo: Pt. is medically stable, will sign off. Subjective Has left knee pain, well controlled. Last BM was 2 days ago. Denies urinary retention. Review of Systems Review of Systems: All systems reviewed & are unremarkable except as noted in HPI & below Constitutional: no fever, no chills, no fatigue and no weakness Respiratory: no cough, no dyspnea, no dyspnea on exertion and no wheezing Cardiovascular: no chest pain, no palpitations and no edema Gastrointestinal: + constipation; no abdominal pain and no nausea Genitourinary: no difficulty urinating Musculoskeletal: + joint pain; no back pain Integumentary: no non-healing lesions Allergy / Immunological: no rash Physical Exam Physical Exam: General: Resting comfortably in no apparent distress HEENT: NC/AT; PERRLA with EOMI; [place] conjunctiva, MMM. No erythema of posterior pharynx Neck: Supple and nontender Cardiac: RRR Lungs: CTA bilaterally; No rhonchi, wheezing, or rales Abdomen: Bowel normoactive X 4; Nontender to palpation Extremities: Warm. No edema present Neuro: No focal weakness Skin: No rash Results & Data Vital Signs (Past 12 Hours) Vital Signs Temp Pulse Pulse Resp BP Pulse Ox 04/09/19 10:21 36.5 C 55 L 14 121/71 93 04/09/19 08:08 36.5 C 55 L 14 121/71 93 04/09/19 03:03 36.6 C 52 L 16 104/69 98 Laboratory Results 04/09/19 04/09/19 04/09/19 Range/Units 12:41 08:18 05:50 WBC (4.8-10.8) K/uL RBC (4.2-5.4) M/uL Hgb (12.0-16.0) g/dL Hct (37-47) % MCV (80-100) fL MCH (25-34) pg MCHC (32-36) g/dL RDW Std Deviation (36.4-46.3) fL RDW Coeff of Mariposa (11.5-14.5) % Plt Count (130-400) K/uL MPV (7.4-10.4) fL Sodium (136-145) mmol/L Potassium (3.5-5.1) mmol/L Chloride (98-107) mmol/L Carbon Dioxide (21-32) mmol/L Anion Gap (3-11) BUN (7-18) mg/dl Creatinine (0.6-1.2) mg/dl Est Cr Clr Drug Dosing ml/min Est GFR ( Amer) Est GFR (Non-Af Amer) BUN/Creatinine Ratio (10-20) Glucose (70-99) mg/dl POC Glucose 102 H 109 H (70-99) Estimat Average Glucose 137 mg/dl Hemoglobin A1c 6.4 H (4.5-5.6) % Calcium (8.5-10.1) mg/dl 04/09/19 04/09/19 04/08/19 Range/Units 05:50 05:50 20:57 WBC 13.93 H (4.8-10.8) K/uL RBC 3.49 L (4.2-5.4) M/uL Hgb 10.2 L (12.0-16.0) g/dL Hct 31.9 L (37-47) % MCV 91.4 (80-100) fL MCH 29.2 (25-34) pg MCHC 32.0 (32-36) g/dL RDW Std Deviation 46.0 (36.4-46.3) fL RDW Coeff of [place] 13.7 (11.5-14.5) % Plt Count 316 (130-400) K/uL MPV 8.8 (7.4-10.4) fL Sodium 142 (136-145) mmol/L Potassium 4.4 (3.5-5.1) mmol/L Chloride 109 H (98-107) mmol/L Carbon Dioxide 29 (21-32) mmol/L Anion Gap 4.0 (3-11) BUN 26 H (7-18) mg/dl Creatinine 0.94 (0.6-1.2) mg/dl Est Cr Clr Drug Dosing 82.1 ml/min Est GFR ( Amer) 77.5 Est GFR (Non-Af Amer) 66.9 BUN/Creatinine Ratio 28.1 H (10-20) Glucose 114 H (70-99) mg/dl POC Glucose 148 H (70-99) Estimat Average Glucose mg/dl Hemoglobin A1c (4.5-5.6) % Calcium 8.8 (8.5-10.1) mg/dl 04/08/19 Range/Units 17:43 WBC (4.8-10.8) K/uL RBC (4.2-5.4) M/uL Hgb (12.0-16.0) g/dL Hct (37-47) % MCV (80-100) fL MCH (25-34) pg MCHC (32-36) g/dL RDW Std Deviation (36.4-46.3) fL RDW Coeff of Mariposa (11.5-14.5) % Plt Count (130-400) K/uL MPV (7.4-10.4) fL Sodium (136-145) mmol/L Potassium (3.5-5.1) mmol/L Chloride (98-107) mmol/L Carbon Dioxide (21-32) mmol/L Anion Gap (3-11) BUN (7-18) mg/dl Creatinine (0.6-1.2) mg/dl Est Cr Clr Drug Dosing ml/min Est GFR ( Amer) Est GFR (Non-Af Amer) BUN/Creatinine Ratio (10-20) Glucose (70-99) mg/dl POC Glucose 117 H (70-99) Estimat Average Glucose mg/dl Hemoglobin A1c (4.5-5.6) % Calcium (8.5-10.1) mg/dl
[2019-04-10] MEDS ORDERED: METFORMIN HCL 500 MG TAB PO SCH (08:00)
--- NOTE | 2019-04-10 10:16 | Discharge Summary ---
Date of Service April 10, 2019 Admission HPI Per Admitting Provider This is a patient who had been treated conservatively for left knee osteoarthritis for many years. She has failed all conservative managements and is now being set up for a left TKA. Principal Diagnosis left knee osteoarthritis Discharge Exam Constitutional WD/WN, vitals as above no acute distress ENMT external ear and nose normal, oropharynx normal Neck trachea midline, no thyromegaly Respiratory normal respiratory effort, lungs clear to auscultation Cardiovascular Rate/Rhythm: regular rate and regular rhythm Gastrointestinal (Abdomen) normal bowel sounds, soft, nontender, no hepatosplenomegaly Musculoskeletal Knee: + surgical incision (left knee: REFUGIO bandage in place. Silverlon dressing below. Hemovac in place) and + surgical drain present (Left knee: hemovac drained 110 cc. ); knee normal to inspection, no deformity, no effusion (mild left knee), no skin erythema, no ecchymosis, no crepitation with knee ROM, no valgus alignment (left knee) and no varus alignment Skin no rashes, warm and dry Neurologic normal touch/pain/proprioception Psychiatric A+Ox3, euthymic affect Lymphatic no cervical or axillary lymphadenopathy Discharge Data Allergies Allergy/AdvReac Type Severity Reaction Status Date / Time No Known Allergies Allergy Verified 04/08/ 05:25 Consultations 04/08/19 10:56 Consult Case Management - Discharge Planning Routine 04/08/19 11:01 Consult Hospitalist Routine Procedures Performed Operation Date: 04/08/19 07:15 Actual Procedures p Left Total Knee Arthroplasty(Left) - Jeevan Contreras DO Ordered Studies 04/08/19 05:00 US - OR guided needle placemen Routine Hospital Course (1) Osteoarthritis of left knee: The patient underwent left TKA on 04.08.19 and was admitted. She was doing well with WB on the LLE on POD #1. Her pain was controlled. PT went well. She had ~100 cc of drainage from her hemovac which was removed POD #1. She was discharged home later on POD #1. POD #1 s/p left TKA PT/OT Pain control with Dilaudid, Oxy IR, Tylenol ASA 81 mg BID for DVT prophylaxis, HOANG chauhan. D/C planning--home today. Total Time Total Time Spent Total Time Spent (In Minutes): 20 Total Time Includes: Examination of the Patient, Discharge Planning and Medication Reconciliation Discharge Plan Discharge Items Patient Disposition: Home - Self-Care Reason For Visit: Osteoarthritis, Left Knee Discharge Diagnosis: left knee osteoarthritis Discharge Goals: Decrease discomfort and Improve function Activity: Per 'Additional Instructions' section Weightbearing: Left weightbearing Weightbearing Comment: as tolerated Non-emergency contact: Surgeon Call non-emergency contact if: your pain is not controlled, your pain is wo rsening and your temperature is above 101.5 Follow-up/Referrals: Luis Jones PA-C [Primary Care Provider] - Diet: Regular Addtl Provider Instructions: ACTIVITY RECOMMENDATIONS: SELF CARE INSTRUCTIONS AFTER TOTAL KNEE REPLACEMENT A. You may need to continue a physical therapy program after discharge from the hospital. There are several options available to you. Your doctor will assist you in selecting the best one for you. 1. An out-patient facility 2 to 3 times a week for therapy or home therapy. 2. Continue working on all exercises taught to you in the hospital. Your goals should be to increase bending of your knee to 90 degrees and beyond and to fully straighten your knee. B. You may progress at your own pace from walking with a walker or crutches to a cane; then to no assistive devices. C. Make walking a part of your daily routine. Be up as much as comfortable with rest periods throughout the day. Rest with leg elevation is very important. Use the ice wrap frequently for the first 3-4 weeks. D. There are no restrictions on activities. You may ride in a car, shop, participate in diamond powder technician and all social activities. E. Wear the long elastic stockings (HOANG hose) 20 hours a day for one month after surgery. They can be removed several times a day for laundering and for a bath. F. Silverlon: You have a Silverlon dressing on the right knee incision. It will remain in place for 7 days from the day of your surgery. After 7 days, you may remove the dressing, just as you would remove a bandaid. You may shower with the Silverlon dressing in place. However, if you notice any water within the dressing, the dressing should be removed. You may cover the incision with a dry dressing once the silverlon is removed if there is any drainage. SPECIAL CARE INSTRUCTIONS: VERY IMPORTANT TO READ AND REVIEW A. Take Aspirin (blood thinning medications) as directed by your doctor. If on Coumadin, have a pro-time (blood test) drawn according to your doctor's instructions. This will tell the doctor how well the Coumadin is thinning your blood. B. There are a few signs you need to watch for after you are home. Call [facility] if you notice any of the followin. Increased severe knee pain. Some pain is expected especially when you exercise. 2. Increased swelling in your leg or knee; pain or swelling of the calf muscle in either lower leg. 3. Any fluid drainage from the incision. 4. Shortness of breath or chest pain. C. Please call [facility] at if you have any concerns or questions about your operation or recovery. The doctor or his nurse will return your call promptly. D. You must take antibiotics before dental work, bladder, bowel or other surgery. Your doctor will provide you with a permanent care to carry describing this precaution. * CALL IF INCREASED PAIN, REDNESS, DRAINAGE OR FEVER GREATER THAT 101 F. * WEAR HOANG HOSE 20 HOURS PER DAY FOR 4 WEEKS. FOLLOW UP VISIT: If appointment is not already scheduled: Please call [facility] to make a follow-up appointment for 2 weeks after your surgery to have xander removed at . Prescriptions: New aspirin [Ecotrin Low Strength] 81 mg Tablet,Delayed Release (Dr/Ec) 81 mg PO BID Qty: 60 RF: 0 acetaminophen [Tylenol Extra Strength] 500 mg Tablet 1,000 mg PO Q8 Qty: 120 RF: 0 oxycodone 5 mg Tablet 5 - 10 mg PO Q4H PRN (Reason: pain) Qty: 60 RF: 0 cefadroxil 500 mg capsule 500 mg PO Q12H Qty: 84 RF: 0 Continued metformin 500 mg Tablet 500 mg PO QAM RF: 0 levothyroxine 175 mcg Tablet 175 mcg PO Q OTHER DAY RF: 0 carvedilol 12.5 mg Tablet 12.5 mg PO QAM RF: 0 citalopram 40 mg Tablet 40 mg PO QAM RF: 0 tizanidine [Zanaflex] 4 mg Tablet 3 tab PO BID RF: 0 meloxicam 15 mg Tablet 15 mg PO QAM RF: 0 cyanocobalamin (vitamin B-12) [Vitamin B-12] 1,000 mcg Tablet 1,000 mcg PO QAM RF: 0 montelukast [Singulair] 10 mg Tablet 10 mg PO PM RF: 0 levothyroxine 200 mcg Tablet 200 mcg PO Q OTHER DAY RF: 0 furosemide [Lasix] 20 mg Tablet 20 mg PO QAM RF: 0 zolpidem [Ambien] 10 mg Tablet 10 mg PO HS RF: 0 losartan 100 mg Tablet 100 mg PO QAM RF: 0 rosuvastatin 10 mg Tablet 10 mg PO QAM RF: 0 omega 4-avb-auh-fish oil [Fish Oil] 1,000 mg (120 mg-180 mg) Capsule 1 cap PO QAM RF: 0 Dulera 100-5 mcg/actuation Hfa Aerosol Inhaler 2 puff INHALATION Q12H PRN (Reason: Shortness Of Breath) RF: 0 Stand-Alone Forms: [facility], Opioid Pain Management Krames/Other Patient Handouts: Aspirin Oral tablet Discharge Orders: Discharge Order (Routine); Ordered 04/09/19 Ordered By: Drake Jiménez Admission Data Admit Date/Time: 04/08/19 10:56 Attending Provider: Jeevan Contreras Admit Provider: Jeevan Contreras Primary Care Provider: Luis Jones Other Providers: Cristiano Driscoll ; Jessa Bañuelos ; Marcelo Baltazar ; Miguel Angel Porter ; Tina Pugh ; Uriah Golden ; Mauricio Crain ; Rashard Kruse ; Andriy Fontaine ; Sharon Cortés ; Telma Toledo ; Jesse Galindo ; Vernell Sher ; Cristopher Chau ; [place] ; Israel Minor ; Enid Wylie Sarah Ann ; Lucila Fuentes ; Sincere Feliciano ; Nathen Castillo ; Zoya Elizondo ; Sam Garces Service: Surgical Services Other Interventions: Discharge Summary Assessment (RN) Last Done: 04/09/19 10:21 DC Date/Time DO NOT enter until pt leaves facility: 04/09/19 13:50
== END 2019-04-09 13:50 | disposition home or self-care (01) | DRG 470 ==
LOC: ASU 04:46 → 3E 10:56

== ENCOUNTER 2020-05-07 07:11 | Observation (INO) ==
--- NOTE | 2020-04-20 11:34 | PAT Medication Instructions ---
Medication Instructions Date of Service April 20, 2020 Home Medications carvedilol 12.5 mg PO QAM citalopram 40 mg PO QAM cyanocobalamin (vitamin B-12) 1,000 mcg PO QAM furosemide [Lasix] 20 mg PO QAM levothyroxine 175 mcg PO Q OTHER DAY levothyroxine 200 mcg PO Q OTHER DAY losartan 100 mg PO QAM meloxicam 15 mg PO QAM metformin 500 mg PO QAM montelukast [Singulair] 10 mg PO PM omega 2-jwr-tyf-fish oil [Fish Oil] 1 cap PO QAM rosuvastatin 10 mg PO QAM tizanidine [Zanaflex] 3 tab PO BID zolpidem [Ambien] 10 mg PO HS acetaminophen [Tylenol Extra Strength] 1,000 mg PO UD PRN semaglutide [Ozempic] 0.5 mg SUBCUT WK Continue as directed semaglutide [Ozempic] 0.5 mg SUBCUT WK ASK your surgeon for instructions meloxicam 15 mg PO QAM STOP taking 2 weeks before surgery If surgery is within 2 weeks, stop taking as soon as possible. omega 2-jfx-igx-fish oil [Fish Oil] 1 cap PO QAM DO NOT take the morning of surgery cyanocobalamin (vitamin B-12) 1,000 mcg PO QAM furosemide [Lasix] 20 mg PO QAM losartan 100 mg PO QAM metformin 500 mg PO QAM tizanidine [Zanaflex] 3 tab PO BID Take morning of surgery With a small sip of water, OTHERWISE NOTHING TO EAT OR DRINK AFTER MIDNIGHT: carvedilol 12.5 mg PO QAM citalopram 40 mg PO QAM levothyroxine 175 mcg PO Q OTHER DAY levothyroxine 200 mcg PO Q OTHER DAY rosuvastatin 10 mg PO QAM acetaminophen [Tylenol Extra Strength] 1,000 mg PO UD PRN (if needed, may be taken up to four hours before surgery) Take evening before surgery montelukast [Singulair] 10 mg PO PM tizanidine [Zanaflex] 3 tab PO BID zolpidem [Ambien] 10 mg PO HS acetaminophen [Tylenol Extra Strength] 1,000 mg PO UD PRN (if needed) Other Notes If you have any questions please call us at [phone] or [phone] or [phone] or [phone]
--- NOTE | 2020-04-23 15:54 | Anesthesiology Consultation ---
Date of Service April 23, 2020 Assessment & Plan (1) Encounter for pre-operative examination: COVID Status: As of 04/23 assessment, patient denies travel to endemic area, known exposure/sick contacts, or symptoms of COVID19. Preoperative COVID19 testing to be completed prior to surgery. BSG AM DOS Chart Review Chart Review: Acceptable Risk for Surgery and Patient seen in Pre Admission Testing Teaching & Discussion Instructed NPO after midnight before surgery, except medications with 15 cc of water. Medication instructions provided according to the PAT guidelines. History Surgery Operation Date: 05/07/20 12:25 Proposed Procedures p Left Sacroiliac Joint Fusion - Jaime Donato DO Height/Weight Height: 5 ft 5 in Weight: 114.3 kg Allergies Allergy/AdvReac Type Severity Reaction Status Date / Time No Known Allergies Allergy Verified 04/17/20 13:04 Medications Home Medications Medication Instructions Recorded Confirmed Last Taken carvedilol 12.5 mg PO QAM 03/03/19 04/17/20 04/07/19 08:00 citalopram 40 mg PO QAM 03/03/19 04/17/20 04/07/19 08:00 cyanocobalamin (vitamin B-12) 1,000 mcg PO QAM 03/03/19 04/17/20 04/07/19 08:00 [Vitamin B-12] furosemide [Lasix] 20 mg PO QAM 03/03/19 04/17/20 04/07/19 08:00 levothyroxine 175 mcg PO Q OTHER DAY 03/03/19 04/17/20 04/06/19 08:00 levothyroxine 200 mcg PO Q OTHER DAY 03/03/19 04/17/20 04/07/19 08:00 losartan 100 mg PO QAM 03/03/19 04/17/20 04/07/19 08:00 meloxicam 15 mg PO QAM 03/03/19 04/17/20 04/07/19 08:00 metformin 500 mg PO QAM 03/03/19 04/17/20 04/07/19 08:00 montelukast [Singulair] 10 mg PO PM 03/03/19 04/17/20 04/07/19 20:00 omega 7-imc-aqs-fish oil [Fish Oil] 1 cap PO QAM 05/12/2104/17/20 04/01/19 08:00 rosuvastatin 10 mg PO QAM 03/03/19 04/17/20 04/07/19 08:00 tizanidine [Zanaflex] 3 tab PO BID 03/03/19 04/17/20 04/07/19 20:00 zolpidem [Ambien] 10 mg PO HS 03/03/19 04/17/20 04/07/19 20:00 acetaminophen [Tylenol Extra 1,000 mg PO UD PRN 04/17/20 04/17/20 Unknown Strength] semaglutide [Ozempic] 0.5 mg SUBCUT WK 04/17/20 04/17/20 Unknown Past Medical History Medical History Anxiety Chronic obstructive pulmonary disease NO INHALERS AT PRESENT TIME DJD (degenerative joint disease) History of kidney stones X1 Hyperlipidemia Hypertension Hypothyroidism Morbid obesity PONV (postoperative nausea and vomiting) NAUSEA Pre-diabetes On Metformin Sleep apnea use bipap Smoker SOB (shortness of breath) on exertion Past Family History Family History Father Family history of diabetes mellitus Brother Family history of diabetes mellitus Past Surgical History Surgical History H/O arthroscopy of left knee x2 History of carpal tunnel release of both wrists History of colonoscopy History of surgery LEFT KNEE, DRAIN PLACED History of total left knee replacement Hx of hand surgery Bilateral (2003) Hx of tubal ligation Past Anesthesia History No Hx of Anesthesia Complications (other than PONV) and No Family Hx of Anesthesia Complications History of PONV No Hx of Motion Sickness and History of PONV Social History Smoking Status: Former smoker tobacco type: cigarettes Smoking cigarettes per day: 1PPD/ADVISED NPO Do You Dip or Chew Tobacco: No Hx Alcohol Use: No Hx Substance Use: No substance use type: does not use Review of Systems Pt denies any recent chest pain, shortness of breath above baseline (pt is smoker with COPD), palpitations, cough, fever or URI. Physical Exam Vital Signs BP: 123/83 P: 62bpm SPO2: 94% RA T: 98.2 F R: 16 Constitutional + morbidly obese Testing Laboratory Results 04/23/20 16:54 04/23/20 16:54 PT 10.6 Seconds (9.0-12.0) 04/23/20 16:54 INR 1.0 (0.9-1.1) 04/23/20 16:54 APTT 26.6 Seconds (21.0-31.0) 04/23/20 16:54 Urine Color Yellow 04/23/20 16:54 Urine Appearance Clear (Clear) 04/23/20 16:54 Urine pH 5.5 (4.5-7.5) 04/23/20 16:54 Ur Specific [place] 1.025 (1.000-1.030) 04/23/20 16:54 Urine Protein Negative (Negative) 04/23/20 16:54 Urine Glucose (UA) Negative (Negative) 04/23/20 16:54 Urine Ketones Trace (Negative) H 04/23/20 16:54 Urine Nitrite Negative (Negative) 04/23/20 16:54 Ur Leukocyte Esterase Negative (Negative) 04/23/20 16:54 Blood Type O Negative 04/23/20 16:54 Antibody Screen NEGATIVE 04/23/20 16:54 Electrocardiogram Date: 04/23/20 Findings: + NSR @ (64bpm) Chest X-Ray Date: 04/23/20 Findings: + NAD
--- NOTE | 2020-04-23 16:25 | XRay Report ---
XR chest Pre-admission PA/Lat CLINICAL HISTORY: PAT preoperative COMPARISON STUDY: 06/14/2018 FINDINGS: The bones soft tissues and hemidiaphragms are normal. The cardiomediastinal silhouette is n ormal. The lungs are clear. The pulmonary vasculature is normal. IMPRESSION: Negative chest. ACT 112: Negative or not required by law. The above report was generated using voice recognition software. It may contain grammatical, syntax or spelling errors. Electronically signed by: Harjinder Cordero M.D. 04/23/2020 4:23 PM
[2020-04-23 17:18] LABS: Basophils # (auto) 0.05 K/uL (0-0.2); Basophils % (auto) 0.5 %; Hematocrit (blood only) 41.1 % (37-47); Hemoglobin 13.5 g/dL (12.0-16.0); Immature Granulocytes # (auto) 0.05 K/uL (0.00-0.02); Immature Granulocytes % (auto) 0.5 %; Lymphocytes # (auto) 3.68 K/uL (1.2-3.4); Lymphocytes % (auto) 37.4 %; Mean Corpuscular Hemoglobin 30.8 pg (25-34); Mean Corpuscular Hgb Conc 32.8 g/dL (32-36); Mean Corpuscular Volume 93.8 fL (80-100); Mean Platelet Volume 9.7 fL (7.4-10.4); Monocytes # (auto) 0.79 K/uL (0.11-0.59); Neutrophils # (auto) 4.98 K/uL (1.4-6.5); Neutrophils % (auto) 50.6 %; Platelet Count 306 K/uL (130-400); RDW Coefficient of Variation 14.2 % (11.5-14.5); RDW Standard Deviation 48.4 fL (36.4-46.3); Red Blood Count 4.38 M/uL (4.2-5.4); White Blood Count 9.85 K/uL (4.8-10.8)
[2020-04-23 17:31] LABS: Partial Thromboplastin Time 26.6 Seconds (21.0-31.0); Prothrombin Time 10.6 Seconds (9.0-12.0)
[2020-04-23 17:35] LABS: Appearance Urine Clear (Clear); Bilirubin Urine Negative (Negative); Blood Urine Negative (Negative); Color Urine Yellow; Glucose Urine UA Negative (Negative); Ketones Urine Trace (Negative); Leukocyte Esterase Urine Negative (Negative); Nitrite Urine Negative (Negative); Protein Urine Negative (Negative); Specific Gravity Urine 1.025 (1.000-1.030); Urobilinogen Urine Negative (Negative); pH Urine 5.5 (4.5-7.5)
[2020-04-23 17:41] LABS: BUN Creatinine Ratio 24.4 (10-20); Calcium 8.9 mg/dl (8.5-10.1); Creatinine Clr Calc Pharmacy 83.1 ml/min; Est GFR (Non-African American) 68.2; Potassium 4.1 mmol/L (3.5-5.1)
--- NOTE | 2020-04-24 15:34 | Electrocardiogram Report ---
Test Reason : Blood Pressure : / mmHG Vent. Rate : 064 BPM Atrial Rate : 064 BPM P-R Int : 166 ms QRS Dur : 078 ms QT Int : 420 ms P-R-T Axes : 069 083 074 degrees QTc Int : 433 ms Normal sinus rhythm Normal ECG When compared with ECG of 10-MAR-2019 13:20, No significant change was found Confirmed by Keenan Cain ([id number]) on 04/24/2020 3:34:05 PM Referred By: Jaime Donato Confirmed By:Keenan Cain
[~2020-05-07 07:11] MED LIST changes: -ACET-1138 PO; +ACETAMINOPHEN 500 MG TAB PO SCH; -CARV3.122 PO; +CEFAZOLIN 2000MG 2,000 MG/15 ML SYR IV SCH; -CITA40TA4 PO; -CYCL10TA6 PO; +CeleBREX 200 MG CAP PO SCH; -FURO-85 PO; +GABAPENTIN 600 MG DOSE PO SCH; -GLC/500 PO; -LEVO175T3 PO; -LEVO200T6 PO; -LORA-741 PO; -LOSA1TAB38 PO; +LR 15ML/HR IV SCH; +MIDAZOLAM HCL 1 MG/ML 2ML VIAL ONE; -MOME200A INH; -MONT1TAB3 PO; -RXC5 PO
[2020-05-07] MEDS ORDERED: fentaNYL citrate 100 MCG/2 ML VIAL ONE (08:13)
[2020-05-07] MEDS ORDERED: LIDOCAINE HCL 2% 2 ML VIAL/AMP(20MG/ML) INFIL ONE (08:13)
[2020-05-07] MEDS ORDERED: PROPOFOL IV EMULSION 10 MG/ML 20 ML VIAL IV ONE (08:13)
[2020-05-07] MEDS ORDERED: ONDANSETRON INJ 2 MG/ML 2 ML VIAL ONE (08:13)
[2020-05-07] MEDS ORDERED: LARYING-O-JET KIT (LTA) ONE (08:13)
[2020-05-07] MEDS ORDERED: DEXAMETHASONE SOD INJ 4 MG/ML VIAL ONE (08:13)
[2020-05-07] MEDS ORDERED: ONDANSETRON INJ 2 MG/ML 2 ML VIAL IV PRN (08:47)
[2020-05-07] MEDS ORDERED: ATROPINE SULFATE 0.1 MG/ML 10ML SYR IV PRN (08:47)
[2020-05-07] MEDS ORDERED: LABETALOL HCL IV 5 MG/ML 20ML IV PRN (08:47)
[2020-05-07] MEDS ORDERED: PROMETHAZINE HCL 6.25 MG in SODIUM CHLORIDE 0.9% 50 ML IV PRN (08:47)
--- NOTE | 2020-05-07 08:52 | History & Physical Bridge Note ---
Date of Service May 07, 2020 History & Physical Bridge Note I have examined the patient, reviewed the History & Physical and in the interval since the performance of the History & Physical I have noted the following changes of clinical significance: no changes noted
--- NOTE | 2020-05-07 08:54 | History & Physical Report ---
Date of Service May 07, 2020 Assessment & Plan (1) Sacroiliitis: Left sacroiliac joint fusion Present on Admission?: Yes History of Present Illness Chief Complaint: SI joint pain Primary Care Provider: Luis Jones This is a 59-year-old female who presents with chronic persistent sacroiliitis. After failing extensive course of nonoperative care is here for surgical intervention. Allergies Allergy/AdvReac Type Severity Reaction Status Date / Time No Known Allergies Allergy Verified 05/07/20 07:47 Home Medications Home Medications Medication Instructions Recorded Confirmed Type carvedilol 12.5 mg PO QAM 03/03/19 05/07/20 History citalopram 40 mg PO QAM 03/03/19 05/07/20 History cyanocobalamin (vitamin B-12) 1,000 mcg PO QAM 03/03/19 05/07/20 History [Vitamin B-12] furosemide [Lasix] 20 mg PO QAM 03/03/19 05/07/20 History levothyroxine 175 mcg PO Q OTHER DAY 03/03/19 05/07/20 History levothyroxine 200 mcg PO Q OTHER DAY 03/03/19 05/07/20 History losartan 100 mg PO QAM 03/03/19 05/07/20 History meloxicam 15 mg PO QAM 03/03/19 05/07/20 History metformin 500 mg PO QAM 03/03/19 05/07/20 History montelukast [Singulair] 10 mg PO PM 03/03/19 05/07/20 History omega 9-jtc-dwl-fish oil [Fish Oil] 1 cap PO QAM 03/03/19 05/07/20 History rosuvastatin 10 mg PO QAM 03/03/19 05/07/20 History tizanidine [Zanaflex] 3 tab PO BID 03/03/19 05/07/20 History zolpidem [Ambien] 10 mg PO HS 03/03/19 05/07/20 History acetaminophen [Tylenol Extra 1,000 mg PO UD PRN 04/17/20 05/07/20 History Strength] semaglutide [Ozempic] 0.5 mg SUBCUT WK 04/17/20 05/07/20 History multivitamin 1 tab PO DAILY 05/07/20 05/07/20 History Past Med/Surg History Medical History Anxiety Chronic obstructive pulmonary disease NO INHALERS AT PRESENT TIME DJD (degenerative joint disease) History of kidney stones X1 Hyperlipidemia Hypertension Hypothyroidism Morbid obesity PONV (postoperative nausea and vomiting) NAUSEA Pre-diabetes On Metformin Sleep apnea use bipap Smoker SOB (shortness of breath) on exertion Surgical History H/O arthroscopy of left knee x2 History of carpal tunnel release of both wrists History of colonoscopy History of surgery LEFT KNEE, DRAIN PLACED History of total left knee replacement Hx of hand surgery Bilateral (2003) Hx of tubal ligation Family History Father Family history of diabetes mellitus Brother Family history of diabetes mellitus Social History Preferred Language: [place] Communication Ability: Effective Silo Erector Required: No Beliefs That Will Affect Care: None Current Living Situation: Alone Other Information That Helps Us Care for You: No Feels Safe at Home: Yes Smoking Status: Former smoker Tobacco Type: cigarettes ; Cigarettes Per Day: 1PPD/ADVISED NPO ; Do You Dip or Chew Tobacco: No ; Second Hand Exposure: No ; Hx Alcohol Use: No Hx Substance Use: No Physical Exam Physical Exam: Patient is alert and oriented neurologically intact. Heart regular rate and rhythm. Lungs clear to auscultation. Results & Data Vital Signs (Past 12 Hours) Vital Signs Temp Pulse Resp BP Pulse Ox 05/07/20 07:50 37 C 60 18 153/99 H 95
[2020-05-07] MEDS ORDERED: SCOPOLAMINE 1.5 MG TDSY TD ONE (09:08)
[2020-05-07] MEDS ORDERED: BACITRACIN INJ 50,000 UNIT VIAL ONE (09:16)
[2020-05-07] MEDS ORDERED: BUPIVACAINE/EPINEPHRINE 0.25% 1:200,000 30 ML VIAL ONE (09:16)
[2020-05-07] MEDS ORDERED: ePHEDrine sulfate 50 MG/ML SYR ONE (09:51)
[2020-05-07] MEDS ORDERED: NEOSTIGMINE METHYLSULFATE 1 MG/ML 10ML VIAL ONE (10:07)
[2020-05-07] MEDS ORDERED: GLYCOPYRROLATE 0.2 MG/ML VIAL ONE (10:07)
[2020-05-07] MEDS ORDERED: FLOSEAL HEMOSTATIC MATRIX 10ML TOP ONE (10:31)
[2020-05-07] MEDS ORDERED: OXYCODONE HCL IR 5 MG TAB (IMMEDIATE RELEASE) PO PRN ×2 (10:38)
[2020-05-07] MEDS ORDERED: HYDROmorphone INJ 0.5 MG/0.5 ML SYR IV PRN ×2 (10:38)
--- NOTE | 2020-05-07 10:38 | Operative Report ---
Post Operative Report Pre & Post Diagnosis Operation Date: 05/07/20 09:05 Pre-Op Diagnosis: SI Joint Dysfunction Post-Op Diagnosis: SI Joint Dysfunction I identified the patient and participated in the time-out.: Yes Procedure Operation Date: 05/07/20 09:05 Actual Procedures #1 open left SI joint fusion. #2 placement of 25 mm allograft filled with in fuse collagen sponge in the left SI joint. #3 placement of 3 percutaneous SI joint screws. Surgeon Jaime Donato, Merchandise Executive Cathi Marcus Estimated Blood Loss 10 Findings Consistent with Post-Op Diagnosis Specimens None Indications This is a 59-year-old female who presents with marked SI joint dysfunction and pain. After failing extensive course of nonoperative care she elected to undergo the above-mentioned procedure. Description of Procedure Patient was met with preoperatively case discussed all questions addressed. At this time the patient was taken to the operative suite underwent an patient placed in a prone position the El table chest padded bolsters. All bony prominences well-padded eyes inspected to ensure no external pressure placed upon the. This point the left upper buttock was prepped and draped in normal sterile fashion. With the assistance of fluoroscopy identified the left SI joint and made a proximately 3 cm incision overlying this region dissecting down to expose the left SI joint. I then placed a guidewire within the joint to verify exact position with fluoroscopy and then placed a cannula over the guidewire to help curette out the left SI joint. After this complete a 25 mm bony allograft filled with infuse collagen sponge was placed within the joint. After completing the open portion of the surgery I placed a second incision on the left upper buttock in line with the posterior sacral slope. I then placed a guidewire across the proximal portion of the left SI joint evaluate evaluating my position in AP lateral inlet and outlet views. I then placed cannulas over the guidewire and drilled a 10 mm drill across the joint. I then placed a 50 mm FERNANDEZ-coated slotted screw filled with local autograft and infuse collagen sponge across the joint. Had excellent placement and purchase. Using the out guide I placed a second distal wire in a similar fashion. Again drilling across the joint with a 10 mm slotted drill. A second screw 45 mm in length FERNANDEZ-coated slotted filled with infuse collagen sponge was then placed. A third distal screw was then placed in a similar fashion. The screw was 40 mm in length FERNANDEZ- coated slotted and again filled with infuse collagen sponge and local autograft. All screws demonstrated excellent purchase and alignment. The incision was then copiously irrigated and closed with subcutaneous Vicryl and 4 Monocryl for final skin closure. Steri-Strip sterile dressings placed. Patient waken taken to PACU stable condition. Please note Cathi Marcus was present at the entire procedure involved the patient positioning complex portions of the surgery and final skin closure. I attest to the content of the Intraoperative Record and any orders documented therein. Any exceptions are noted below.
[2020-05-07] MEDS: HYDROmorphone INJ 1 MG/ML SYRINGE IV PRN ×2 (10:55→11:00)
--- NOTE | 2020-05-07 10:57 | Fluoroscopy Report ---
FL sacrum CLINICAL HISTORY: LEFT SI JOINT FUSION COMPARISON STUDY: None. FLUOROSCOPY TIME: 2 minutes and 8 seconds. FLUOROSCOPIC IMAGES: 2 FINDINGS: Fluoroscopy was provided for left sacroiliac joint fusion. Hardware is intact. Three screws fixate the left sacroiliac joint. There are no unexpected radiopaque foreign bodies. IMPRESSION: Fluoroscopy provided for left sacroiliac joint fusion. ACT 112: Negative or not required by law. Electronically signed by: Ramsey Turcios M.D. 05/07/2020 10:55 AM
--- NOTE | 2020-05-07 11:40 | Anesthesiology Progress Note ---
Date of Service May 07, 2020 Anesthesia Post Procedure Vital Signs Vital Signs: Temp Pulse Pulse Resp BP BP Pulse Ox 05/07/20 11:20 36.4 C L 73 16 145/93 H 93 05/07/20 11:10 75 16 140/91 94 05/07/20 11:00 74 16 127/92 97 05/07/20 10:51 36.1 C L 67 12 129/104 H 98 05/07/20 07:50 37 C 60 18 153/99 H 95 Pain Intensity Back: Pain Intensity: 7 Transfer of Care Handoff Completed per policy Notes Mental Status: alert / awake / arousable Patient Amnestic to Procedure: Yes Nausea / Vomiting: adequately controlled Pain: adequately controlled Airway Patency, RR, SpO2: stable & adequate BP & HR: stable & adequate Hydration State: stable & adequate Anesthetic Complications: no major complications apparent
== END 2020-05-07 12:53 | disposition home or self-care (01) ==
LOC: 3E 07:11 → ASU 07:11